=== PATIENT | female | born 1945 | race American Indian/Alaskan Native ===

== ENCOUNTER 2018-04-17 12:23 | Day surgery (SDC) | payer MEDICARE ==
--- NOTE | 2018-04-17 13:43 | Anesthesia Day of Surgery ---
Anesthesia Day of Surgery - Day of Surgery Patient Examined: Yes Patient H&P Reviewed: Yes Patient is NPO: Yes
--- NOTE | 2018-04-17 13:44 | Anesthesia Consultation ---
Anesthesia Consult and Med Hx Date of service: 04/17/18 - Airway Anesthetic Teeth Evaluation: Dentures ROM Head & Neck: Adequate Mental/Hyoid Distance: Adequate Mallampati Class: Class II Intubation Access Assessment: Possibly Difficult - Pre-Operative Health Status ASA Pre-Surgery Classification: ASA2 Proposed Anesthetic Plan: MAC - Pulmonary Hx Smoking: Yes (1 PACK/DAY FOR 50 YEARS) - Cardiovascular System Hx Hypertension: Yes - Central Nervous System Hx Psychiatric Problems: Yes - Gastrointestinal Hx Gastroesophageal Reflux Disease: Yes
[2018-04-17] MEDS ORDERED: DIPRIVAN 10 MG/ML IV ONE (13:46)
[2018-04-17] MEDS ORDERED: NACL 0.9% 1000 ML 1,000 ML IV SCH (14:00)
--- NOTE | 2018-04-17 14:09 | Operative Report ---
Operative Report Operative Report: Date: 04/17/2018 Operative Report: Date of procedure: 04/17/2018 Procedure: Esophagogastroduodenoscopy with multiple mucosal biopsies Attending physician: Theo Leger MD Named Account Executive: Theo Leger MD Indication: Patient is a 72-year-old female who presented with a history of epigastric pain heartburn and indigestion with persistence of symptoms, chest pain and nausea with bloating and intestinal gas. An upper endoscopy is done to assess patient so that treatment may be directed based on the findings. Consent: Informed consent was obtained after advising the patient and family regarding nature of this procedure, its indications, potential benefits as well as possible complications including but not limited to bleeding perforation and adverse reaction to medication, infection as well as other cardiopulmonary complications. An informed written and verbal consent was then obtained after due opportunity was provided for questions and answers. Monitoring: Patient was monitored continuously with pulse oximetry and electrocardiographic recordings as well as blood pressure recordings. Vital signs remained stable throughout this procedure with no untoward events. Preoperative assessment: Patient was assessed immediately prior to this procedure for capacity to tolerate monitored anesthesia care and moderate sedation as well as general anesthesia. Patient's ASA classification is 2, Mallampati class is 2, Hyomental distance is 3. Instrument: OrSensen video endoscope Medications: Propofol given intravenously in divided doses. For details please refer to anesthesia records. Description of procedure: Patient was placed in the left lateral decubitus position after achieving sedation, the endoscope was introduced into the esophagus under direct vision. It was then advanced beyond the esophagus into the stomach and then beyond the stomach into the duodenum and to the second portion of the duodenum. It was subsequently withdrawn with careful inspection of all mucosal surfaces with the following findings. Findings: In the esophagus, the Z line was irregular. There was a Schatzki ring at the gastroesophageal junction There was a 1-2 cm sliding hiatal hernia seen on entry into the stomach. There were erosions and erythema seen in the gastric antrum. Biopsies of the antrum were obtained for histopathology. The duodenum was normal to second portion. Impression: Irregular Z line Schatzki ring Hiatal hernia Gastric antral erosions Gastric antral erythema Plan: Follow pathology report. Continue treatment with proton pump inhibitors and direct additional treatment based on the pathology report.
--- NOTE | 2018-04-17 14:09 | Discharge Summary ---
Short Stay Discharge Plan Activity: advance as tolerated Weight Bearing Status: Weight Bear as Tolerated Diet: regular Follow up with: CONCHITA ALEX MD [Primary Care Provider] - 7 Days
[2018-04-17 14:48] VITALS: BP 116/66
[2018-04-17] MEDS ORDERED: WATER FOR IRRIG STERILE IR ONE (14:56)
== END 2018-04-17 12:24 | disposition home or self-care (01) ==
LOC: GIO 12:23
PROVIDERS: ATTEND Internal Medicine Gastroenterology
DX: K29.50 Unspecified chronic gastritis without bleeding (principal); K44.9 Diaphragmatic hernia without obstruction or gangrene; F17.210 Nicotine dependence, cigarettes, uncomplicated; I10 Essential (primary) hypertension; K21.9 Gastro-esophageal reflux disease without esophagitis; Z90.710 Acquired absence of both cervix and uterus; Z79.899 Other long term (current) drug therapy; Z79.01 Long term (current) use of anticoagulants; Z88.5 Allergy status to narcotic agent; Z98.890 Other specified postprocedural states
CPT/HCPCS: 43239; 88305; 88342; J2704; J7030

== ENCOUNTER 2018-05-09 13:19 | Outpatient (CLI) | payer MEDICARE ==
--- NOTE | 2018-05-09 15:53 | Mammography Report ---
BILATERAL DIGITAL SCREENING MAMMOGRAM with CAD : 05/09/18 13:19:00 CLINICAL: Routine screening. COMPARISON:08/18/14 and 07/15/07 FINDINGS: The breasts are heterogeneously dense, which may obscure small masses.Scattered bilateral benign calcifications. No mass, architectural distortion or suspicious calcifications. IMPRESSION: No mammographic evidence of malignancy. BI-RADS CATEGORY: 2 -- Benign RECOMMENDATION: Routine mammographic screening in one year. COMMENT: Patient follow-up letters are generated by our [employer] application.
--- NOTE | 2018-05-09 15:56 | Mammography Report ---
BONE DEXA:05/09/18 13:19:00 CLINICAL: Postmenopausal. No comparison. TECHNIQUE: Two site bone DEXA performed on an Hologic scanner. FINDINGS: The average BMD of the lumbar spine L1-L4 is 0.793g/cm squared with a T-score of -2.3 and a Z-score of -0.9. However, the L4 BMD is 0.708 with a T score of -3.2 and a Z score of -1.7. The average BMD of the left hip is 0.625g/cm squared with a T-score of -2.6 and a Z-score of -1.5. IMPRESSION: WHO classification: Osteoporosis with high fracture risk based on both lumbar spine and left hip measurements. RECOMMENDATION: Clinical correlation and routine screening. DEFINITIONS: BMD = Bone Mineral Density T-score = BMD related to mean peak bone mass of young adult (mean expressed in Standard Deviation) Z-score = Age matched BMD expressed in SD World Health Organization (WHO) Diagnostic Criteria Normal T-score > -1 SD Osteopenia T-score between -1 and -2.4 SD Osteoporosis T-score -2.5 SD or below NOTE: BMD is not the only risk factor for fracture. One should also consider factors such as the patient's age, risk of falling, previous osteoporotic fracture, family history of osteoporotic fractures, current smoker, and low body weight. Z-scores are not calculated if >80 years of age.
== END 2018-05-09 13:20 | disposition home or self-care (01) ==
LOC: MAMMO 13:19
PROVIDERS: ATTEND Family Medicine
DX: Z12.31 Encounter for screening mammogram for malignant neoplasm of breast (principal); M85.88 Other specified disorders of bone density and structure, other site; I10 Essential (primary) hypertension; K21.9 Gastro-esophageal reflux disease without esophagitis; Z78.0 Asymptomatic menopausal state; Z87.891 Personal history of nicotine dependence; Z90.710 Acquired absence of both cervix and uterus
CPT/HCPCS: 77067; 77080

== ENCOUNTER 2020-06-20 10:49 | Emergency (ER) | payer MEDICARE ==
[2020-06-20 10:58] VITALS: BP 132/67
[2020-06-20] MEDS ORDERED: ACETAMINOPHEN 325 MG TAB PO ONE (11:52)
--- NOTE | 2020-06-20 12:28 | Emergency Department Report ---
Upper Extremity - HPI Chief Complaint: Extremity Injury, Upper Stated Complaint: RT SHOULDER PAIN/FALL Time Seen by Provider: 06/20/20 12:26 Upper Extremity: Right Shoulder Occurred When: Today Mechanism: Fall Severity: moderate Symptoms: Yes Pain with Movement, Yes Limited Range of Movement, No Deformity, No Numbness, No Weakness, No Swelling, No Bruising/Ecchymosis, No Laceration or Abrasion Other History: 74-year-old female with a past medical history of schizophrenia and hypertension was brought to the ER by her son today for evaluation of right shoulder pain after an accidental fall today. Son reports that patient was at [facility] facility to get her Haldol shot. He states that she has a shuffling gait and so while she was walking to the bathroom she lost her balance and fell and struck her right shoulder. He denies any head injury. ED Review of Systems ROS: Stated complaint: RT SHOULDER PAIN/FALL Other details as noted in HPI Comment: All other systems reviewed and negative ENT: denies: ear pain, throat pain Respiratory: denies: cough, shortness of breath, wheezing Cardiovascular: denies: chest pain, palpitations Gastrointestinal: denies: abdominal pain, nausea, vomiting, diarrhea, constipation, hematemesis, melena, hematochezia Musculoskeletal: joint swelling, arthralgia Skin: denies: rash, lesions Neurological: denies: headache, weakness, paresthesias Psychiatric: denies: anxiety, depression Hematological/Lymphatic: denies: easy bleeding, easy bruising ED Past Medical Hx - Past Medical History Hx Hypertension: Yes Hx GERD: Yes - Social History Smoking Status: Current Every Day Smoker Substance Use Type: None - Medications Home Medications: Home Medications Medication Instructions Recorded Confirmed Last Taken Type Aspirin 1 tab PO DAILY 04/17/18 04/17/18 04/16/18 History Cogentin 1 tab PO HS 04/17/18 04/17/18 04/16/18 History Famotidine [Pepcid] 1 tab PO DAILY 04/17/18 04/17/18 04/16/18 History Haloperidol Decanoate [Haldol 150 mg IM QMONTH 04/17/18 04/17/1818 H istory Decanoate] Omeprazole 1 tab PO DAILY 04/17/18 04/17/18 04/16/18 History Sertraline [Zoloft] 1 tab PO DAILY 04/17/18 04/17/18 04/16/18 History amLODIPine 1 tab PO DAILY 04/17/18 04/17/18 04/16/18 History HYDROcodone/APAP 5-325 [[place] 1 each PO Q4HR PRN #12 tablet 06/20/20 Unknown Rx 5/325] Naproxen [EC-Naprosyn] 500 mg PO Q12HR PRN #20 tablet. 06/20/20 Unknown Rx Upper Extremity Exam - Exam General: Vital signs noted. No distress. Alert and acting appropriately. Head and Torso: No HEENT Abnormality, No Neck Tenderness, No Chest/Lungs Abnormality, No Abdominal Tenderness, No Back Tenderness Shoulder Exam: Yes Shoulder Tenderness, Yes Clavicle Tenderness, No Normal Range of Motion in Shoulder (Reduced due to pain - right shoulder), No Shoulder Deformity, No AC Joint Tenderness Arm Exam: Yes Arm/Humerus Tenderness (Proximal right), No Arm Deformity Elbow: Yes Normal Range of Motion in Elbow, No Elbow Tenderness, No Elbow Deformity Forearm: Yes Forearm Tenderness, No Forearm Deformity, No Pain with Pronation, No Pain with Supination Wrist: Yes Normal ROM in Wrist, No Wrist Tenderness, No Wrist Deformity, No Snuffbox Tenderness, No Pain with Axial Thumb Compression Hand: Yes Normal ROM in Digit(s), No Hand Tenderness, No Hand Deformity, No Digit Tenderness, No Digit(s) Deformity, No Tendon Dysfunction CMS Exam: Yes Normal Distal Pulses, Yes Normal Capillary Refill, Yes Normal Distal Sensation, No Broken Skin ED Course Vital Signs 06/20/20 06/20/20 10:53 12:02 Temperature 98.2 F Pulse Rate 66 Respiratory 18 18 Rate Blood Pressure 132/67 O2 Sat by Pulse 100 Oximetry ED Medical Decision Making - Radiology Data Radiology results: report reviewed Patient: KATELYNN BALTAZAR MR#: [id number] : 1945 Acct:[id number] Age/Sex: 74 / F ADM Date: 06/20/20 Loc: ED Attending Dr: Ordering Physician: SESAR CORONEL Date of Service: 06/20/20 Procedure(s): XR shoulder 2+V RT Accession Number(s): [id number] cc: SESAR CORONEL Fluoro Time In Minutes: XR forearm 1V RT, XR elbow 2V RT, XR humerus 2+V RT, XR shoulder 2+V RT INDICATION / CLINICAL INFORMATION: Fall right arm pain. COMPARISON: None FINDINGS: Right shoulder: Acute mildly impacted fracture of the right proximal humerus surgical neck. There is likely involvement of the greater tuberosity, though fracture otherwise not well evaluated, as the right shoulder is held in internal rotation throughout the examination. Scapular Y view is slightly suboptimal, though demonstrates no evidence of glenohumeral joint malalignment. No additional fracture. Right humerus: No acute fracture or soft tissue abnormality. Right elbow: No acute fracture, malalignment, or joint effusion. No soft tissue abnormality. Right forearm: No acute fracture or soft tissue abnormality. IMPRESSION: Acute impacted right proximal humerus fracture, as above. No other acute abnormality of the right humerus, elbow, or forearm. Signer Name: Berto Daniels MD Signed: 06/20/2020 1:17 PM Workstation Name: [id number] Transcribed By: JS Dictated By: BERTO DANIELS MD Electronically Authenticated By: BERTO DANIELS MD Signed Date/Time: 06/20/201316 DD/ 10 TD/TT: - Medical Decision Making Patient with an acute impacted right proximal humerus fracture. Right upper extremity neurologically intact without any signs of compartment syndrome. Discussed x-ray results with patient's son. Patient replaced shoulder immobilizer. Give him a copy of the x-ray report. Informed him that patient needs to follow-up with teaching specialists, and one will be provided to him on the discharge instructions. Son expressed understanding of instructions and agree with plan. Patient was stable at time of discharge Critical care attestation.: If time is entered above; I have spent that time in minutes in the direct care of this critically ill patient, excluding procedure time. ED Disposition Clinical Impression: Proximal humeral fracture Disposition: DC-01 TO HOME OR SELFCARE Is pt being admited?: No Does the pt Need Aspirin: No Condition: Stable Instructions: Humerus Fracture Treated With Immobilization, [id number] Additional Instructions: Use the shoulder immobilizer as discussed. Take the pain pills as prescribed. It is important that you follow-up with teaching specialists, try to make an appointment for this week or early next week. Return to the ER if symptoms changes or worsens in any way. Prescriptions: Naproxen [EC-Naprosyn] 500 mg PO Q12HR PRN #20 tablet.dr PRN Reason: PAIN HYDROcodone/APAP 5-325 [[place] 5/325] 1 each PO Q4HR PRN #12 tablet PRN Reason: Pain Referrals: ROSA MARIA MILIAN MD [Staff Physician] - 3-5 Days Time of Disposition: 13:51
--- NOTE | 2020-06-20 13:22 | XRay Report ---
XR forearm 1V RT, XR elbow 2V RT, XR humerus 2+V RT, XR shoulder 2+V RT INDICATION / CLINICAL INFORMATION: Fall right arm pain. COMPARISON: None FINDINGS: Right shoulder: Acute mildly impacted fracture of the right proximal humerus surgical neck. There is likely involvement of the greater tuberosity, though fracture otherwise not well evaluated, as [facility] is held in internal rotation throughout the examination. Scapular Y view is slightly sub optimal, though demonstrates no evidence of glenohumeral joint malalignment. No additional fracture. Right humerus: No acute fracture or soft tissue abnormality. Right elbow: No acute fracture, malalignment, or joint effusion. No soft tissue abnormality. Right forearm: No acute fracture or soft tissue abnormality. IMPRESSION: Acute impacted right proximal humerus fracture, as above. No other acute abnormality of the right humerus, elbow, or forearm. Signer Name: Lizandro Daniels MD Signed: 06/20/2020 1:17 PM Workstation Name: [id number]
--- NOTE | 2020-06-20 13:22 | XRay Report ---
XR forearm 1V RT, XR elbow 2V RT, XR humerus 2+V RT, XR shoulder 2+V RT INDICATION / CLINICAL INFORMATION: Fall right arm pain. COMPARISON: None FINDINGS: Right shoulder: Acute mildly impacted fracture of the right proximal humerus surgical neck. There is likely involvement of the greater tuberosity, though fracture otherwise not well evaluated, as the [facility] is held in internal rotation throughout the examination. Scapular Y view is slightly sub optimal, though demonstrates no evidence of glenohumeral joint malalignment. No additional fracture. Right humerus: No acute fracture or soft tissue abnormality. Right elbow: No acute fracture, malalignment, or joint effusion. No soft tissue abnormality. Right forearm: No acute fracture or soft tissue abnormality. IMPRESSION: Acute impacted right proximal humerus fracture, as above. No other acute abnormality of the right humerus, elbow, or forearm. Signer Name: Lizandro Daniels MD Signed: 06/20/2020 1:17 PM Workstation Name: [id number]
--- NOTE | 2020-06-20 13:22 | XRay Report ---
XR forearm 1V RT, XR elbow 2V RT, XR humerus 2+V RT, XR shoulder 2+V RT INDICATION / CLINICAL INFORMATION: Fall right arm pain. COMPARISON: None FINDINGS: Right shoulder: Acute mildly impacted fracture of the right proximal humerus surgical neck. There is likely involvement of the greater tuberosity, though fracture otherwise not well evaluated, as the [facility] is held in internal rotation throughout the examination. Scapular Y view is slightly sub optimal, though demonstrates no evidence of glenohumeral joint malalignment. No additional fracture. Right humerus: No acute fracture or soft tissue abnormality. Right elbow: No acute fracture, malalignment, or joint effusion. No soft tissue abnormality. Right forearm: No acute fracture or soft tissue abnormality. IMPRESSION: Acute impacted right proximal humerus fracture, as above. No other acute abnormality of the right humerus, elbow, or forearm. Signer Name: Lizandro Daniels MD Signed: 06/20/2020 1:17 PM Workstation Name: [id number]
--- NOTE | 2020-06-20 13:22 | XRay Report ---
XR forearm 1V RT, XR elbow 2V RT, XR humerus 2+V RT, XR shoulder 2+V RT INDICATION / CLINICAL INFORMATION: Fall right arm pain. COMPARISON: None FINDINGS: Right shoulder: Acute mildly impacted fracture of the right proximal humerus surgical neck. There is likely involvement of the greater tuberosity, though fracture otherwise not well evaluated, as the [facility] is held in internal rotation throughout the examination. Scapular Y view is slightly sub optimal, though demonstrates no evidence of glenohumeral joint malalignment. No additional fracture. Right humerus: No acute fracture or soft tissue abnormality. Right elbow: No acute fracture, malalignment, or joint effusion. No soft tissue abnormality. Right forearm: No acute fracture or soft tissue abnormality. IMPRESSION: Acute impacted right proximal humerus fracture, as above. No other acute abnormality of the right humerus, elbow, or forearm. Signer Name: Lizandro Daniels MD Signed: 06/20/2020 1:17 PM Workstation Name: [id number]
== END 2020-06-20 14:23 | disposition home or self-care (01) ==
LOC: ED 10:49
DX: S42.201A Unspecified fracture of upper end of right humerus, initial encounter for closed fracture (principal); I10 Essential (primary) hypertension; K21.9 Gastro-esophageal reflux disease without esophagitis; F17.200 Nicotine dependence, unspecified, uncomplicated; Z79.899 Other long term (current) drug therapy; W18.30XA Fall on same level, unspecified, initial encounter; Y93.89 Activity, other specified; Y92.89 Other specified places as the place of occurrence of the external cause; Y99.8 Other external cause status
CPT/HCPCS: 99283

== ENCOUNTER 2021-05-30 10:15 | Day surgery (SDC) | payer MEDICARE ==
[~2021-05-30 10:15] MED LIST: SODIUM CHLORIDE 0.9% 1000 ML 1,000 ML IV SCH
--- NOTE | 2021-05-30 11:35 | Anesthesia Consultation ---
Anesthesia Consult and Med Hx - Airway Anesthetic Teeth Evaluation: Dentures, Edentulous ROM Head & Neck: Adequate Mental/Hyoid Distance: Adequate Mallampati Class: Class III Intubation Access Assessment: Possibly Difficult - Pulmonary Exam CTA: Yes - Cardiac Exam Cardiac Exam: RRR - Pre-Operative Health Status ASA Pre-Surgery Classification: ASA3 Proposed Anesthetic Plan: MAC - Pulmonary Hx Smoking: Yes (1 PACK/DAY FOR 50 YEARS) COPD: Yes Hx Sleep Apnea: Yes (no CPAP) - Cardiovascular System Hx Hypertension: Yes (CHF - EF 55% on most recent echo) Hx Coronary Artery Disease: Yes Hx Heart Murmur: Yes - Central Nervous System CVA: Yes Hx Psychiatric Problems: Yes (schizophrenia) - Gastrointestinal Hx Gastroesophageal Reflux Disease: Yes - Endocrine Hx Renal Disease: Yes (CKD) - Other Systems Hx Alcohol Use: No Hx Substance Use: No Hx Cancer: Yes (cervical) Hx Obesity: No - Additional Comments Anesthesia Medical History Comments: no hx of anesthetic complications
--- NOTE | 2021-05-30 11:35 | Anesthesia Day of Surgery ---
Anesthesia Day of Surgery - Day of Surgery Patient Examined: Yes Patient H&P Reviewed: Yes Patient is NPO: Yes Cardiac Clearance: Yes (on chart)
--- NOTE | 2021-05-30 12:03 | Short Stay Summary ---
Short Stay Documentation Date of service: 05/30/21 Narrative H&P: The patient presents for EGD to evaluate abdominal pain and colonoscopy to evaluate hematochezia. - History Past Medical History: GERD, hypertension, hyperlipidemia, other (schizophrenia) Past Surgical History: No surgical history Social history: no significant social history, lives with family - Allergies and Medications Current Medications: Allergies morphine Allergy (Verified 06/20/20 10:53) Rash NAUSEA Home Medications Medication Instructions Recorded Confirmed Last Taken Type Aspirin 1 tab PO DAILY 04/17/18 04/17/18 04/16/18 History Cogentin 1 tab PO HS 04/17/18 04/17/18 04/16/18 History Famotidine [Pepcid] 1 tab PO DAILY 04/17/18 04/17/18 04/16/18 History Haloperidol Decanoate [Haldol 150 mg IM QMONTH 04/17/18 04/17/18 03/21/18 History Decanoate] Omeprazole 1 tab PO DAILY 04/17/18 04/17/18 04/16/18 History Sertraline [Zoloft] 1 tab PO DAILY 04/17/18 04/17/18 04/16/18 History amLODIPine 1 tab PO DAILY 04/17/18 04/17/18 04/16/18 History HYDROcodone/APAP 5-325 [[place] 1 each PO Q4HR PRN #12 tablet 06/20/20 Unknown Rx 5/325] Naproxen [EC-Naprosyn] 500 mg PO Q12HR PRN #20 tablet. 06/20/20 Unknown Rx Active Medications Sodium Chloride (Nacl 0.9% 1000 Ml) 1,000 mls @ 50 mls/hr IV DIRECT МАРИНА - Physical exam General appearance: no acute distress, well-nourished Integumentary: no rash, no growths, no abnormal pigmentation HEENT: Atraumatic, PERRLA, EOMI Lungs: Clear to auscultation Breasts: deferred Heart: Regular rate, Normal S1, Normal S2, No murmurs Gastrointestinal: normoactive bowel sounds, no tenderness, no distended, no masses, no guarding, no organomegaly, no obese Female Genitourinary: deferred Rectal Exam: normal rectal tone, stool brown, no mass Extremities: no ischemia, pulses intact, pulses symmetrical, No edema, normal temperature, normal color, Full ROM Neurological: Normal gait, Normal speech, Strength at 5/5 X4 ext, Normal tone, Sensation intact, Cranial nerves 3-12 NL - Brief post op/procedure progress note Date of procedure: 05/30/21 Findings: see dictations Estimated blood loss: none Pathology: list (antral biopsies for h pylori) Specimen disposition: to lab Condition: stable - Disposition Condition at discharge: Good Disposition: 01 HOME / SELF CARE / HOMELESS - Discharge Diagnoses (1) Epigastric pain Status: Acute (2) GERD (gastroesophageal reflux disease) Status: Acute (3) Hematochezia Status: Acute Short Stay Discharge Plan Activity: no restrictions Weight Bearing Status: Weight Bear as Tolerated Diet: regular Follow up with: CONCHITA ALEX MD [Primary Care Provider] - 7 Days
--- NOTE | 2021-05-30 12:05 | Operative Report ---
Operative Report Operative Report: Date of procedure: 05/30/2021 Procedure: Esophagogastroduodenoscopy with antral biopsies for H. pylori Preprocedure diagnosis: Epigastric pain and chronic GERD. Post procedure diagnosis: Mild diffuse antral gastritis. Hiatus hernia. Endoscopist: Dr. Sanchez Anesthesia: Monitored anesthesia care per anesthesia department Medications: Propofol per anesthesia Estimated blood loss: 0 After careful discussion of the nature and purpose of the procedure as well as details the technique risks benefits and alternatives consent was obtained. The patient was placed in the left lateral decubitus position and medicated per anesthesia. The tip of the [employer] EQ 570 video scope was passed per orum under direct vision into the esophagus and advanced into the stomach and descending duodenum. The descending duodenum the duodenal bulb and pylorus were symmetrical and normal. The scope was withdrawn into the stomach and the stomach then gently insufflated with air. The antrum revealed diffuse erythema. There were no erosions or ulcers. Biopsies were taken for H. pylori. The stomach was further insufflated and the scope was then retroflexed and partially withdrawn. The cardia, fundus, and body of the stomach were within normal limits and easily distensible.The scope was then withdrawn in the forward position. The esophagogastric junction was at 37 cm. A 2 cm hiatus hernia was present. The esophageal body was normal throughout. The procedure was was well tolerated and the patient was observed in recovery. Impressions: Antral gastritis. Hiatus hernia. Plan: Continue acid suppression. Await pathology results. Treat H. pylori if present. Electronically signed: Dom Sanchez MD
--- NOTE | 2021-05-30 12:08 | Operative Report ---
Operative Report Operative Report: Date of procedure: 05/30/2021 Preprocedure diagnosis: Recent hematochezia. Post procedure diagnoses: Poor prep, limited study with intended colonoscopy to the cecum. Procedure: Flexible sigmoidoscopy to 35 cm Endoscopist: Dom Sanchez M.D. Estimated blood loss: 0 Medications: Propofol per anesthesia. After careful discussion of the nature and purpose of the procedure, risks, benefits, and alternatives consent was obtained. The patient was placed in the left lateral decubitus position and medicated per anesthesia-see separate records for details. A rectal exam was performed. Sphincter tone was normal and no masses were palpable. The tip of the [employer] EQ 570 video scope was passed transanally and advanced under continuous direct vision to 35 cm. Colon preparation was very poor with thick liquid stool and some solid stool present precluding a safe and complete study. No pathology was seen occluding no mass lesions although the study was insensitive to detect small polyps. The procedure was well-tolerated overall. Conclusions: Poor prep. No gross pathology to 35 cm. Colonoscopy could not be completed due to lack of adequate preparation. Plan: Consideration of repeat study with adequate preparation in the near future. The findings and recommendations were discussed with the patient's son. Electronically signing: Dom Sanchez M.D.
--- NOTE | 2021-05-30 15:21 | Post Anesthesia Evaluation ---
- Post Anesthesia Evaluation Patient Participated: Yes Airway Patent: Yes Stable Respiratory Function: Yes Nausea/Vomiting: No Temp > 96.8F: Yes Pain Manageable: Yes Adequeate Hydration: Yes Anesthesia Complications: No
[2021-05-30 16:27] VITALS: BP 123/61
== END 2021-05-30 12:35 | disposition home or self-care (01) ==
LOC: GIO 10:15
PROVIDERS: ATTEND Internal Medicine Gastroenterology
DX: K92.1 Melena (principal); K21.9 Gastro-esophageal reflux disease without esophagitis; R10.13 Epigastric pain; K44.9 Diaphragmatic hernia without obstruction or gangrene; I13.0 Hypertensive heart and chronic kidney disease with heart failure and stage 1 through stage 4 chronic kidney disease, or unspecified chronic kidney disease; I50.9 Heart failure, unspecified; N18.9 Chronic kidney disease, unspecified; J44.9 Chronic obstructive pulmonary disease, unspecified; G47.30 Sleep apnea, unspecified; Z88.5 Allergy status to narcotic agent; Z90.710 Acquired absence of both cervix and uterus; Z79.899 Other long term (current) drug therapy; Z79.82 Long term (current) use of aspirin; Z85.42 Personal history of malignant neoplasm of other parts of uterus; Z85.41 Personal history of malignant neoplasm of cervix uteri; Z86.73 Personal history of transient ischemic attack (TIA), and cerebral infarction without residual deficits
CPT/HCPCS: 88305; 88342

== ENCOUNTER 2021-06-13 22:20 | Inpatient (IN) | payer MEDICARE ==
--- NOTE | 2021-06-14 05:05 | XRay Report ---
BILATERAL HIPS 2 VIEWS EACH INDICATION / CLINICAL INFORMATION: fall. COMPARISON: None available. FINDINGS: BONES / JOINT(S): Subcapital fracture involving the right hip with superior displacement of distal fr agment. Moderate underlying osteopenia. SOFT TISSUES: No significant abnormality. ADDITIONAL FINDINGS: None. Signer Name: Lv Poole MD Signed: 06/14/2021 5:01 AM Workstation Name: [email or web address]
--- NOTE | 2021-06-14 05:07 | XRay Report ---
RIGHT ANKLE ONE VIEW INDICATION / CLINICAL INFORMATION: fall. COMPARISON: None available. FINDINGS: BONES / JOINT(S): No acute fracture or subluxation. No significant arthritis. SOFT TISSUES: No significant abnormality. ADDITIONAL FINDINGS: None. IMPRESSION: Limited evaluation with no gross abnormality. Signer Name: Lv Poole MD Signed: 06/14/2021 5:02 AM Workstation Name: [email or web address]
--- NOTE | 2021-06-14 05:09 | XRay Report ---
RIGHT KNEE 2 VIEWS INDICATION / CLINICAL INFORMATION: fall. COMPARISON: None available. FINDINGS: BONES / JOINT(S): No acute fracture or subluxation. Evaluation limited by positioning. Mild/moderate narrowing medial compartment. Underlying osteopenia. SOFT TISSUES: No significant abnormality. ADDITIONAL FINDINGS: None. Signer Name: Lv Poole MD Signed: 06/14/2021 5:04 AM Workstation Name: [email or web address]
[2021-06-14] MEDS ORDERED: ONDANSETRON 4 MG/2 ML INJ ONE (06:49)
[2021-06-14] MEDS ORDERED: MORPHINE 4 MG/1 ML INJ ONE (06:49)
[2021-06-14] MEDS ORDERED: ONDANSETRON 4 MG/2 ML INJ IV ONE (06:50)
[2021-06-14] MEDS: fentaNYL 100 MCG/2 ML INJ IV ONE ×2 (06:54→07:42)
[2021-06-14] MEDS: SODIUM CHLORIDE 0.9% 1000 ML 1,000 ML IV ONE ×2 (06:57→07:41)
[2021-06-14 07:35] LABS: Basophils # (Auto) 0.1 K/mm3 (0.0-0.1); Basophils % (Auto) 1.4 % (0.0-1.8); Eosinophils % (Auto) 0.5 % (0.0-4.3); Hemoglobin 12.3 gm/dl (10.1-14.3); Lymphocytes # (Auto) 0.8 K/mm3 (1.2-5.4); Lymphocytes % (Auto) 11.1 % (13.4-35.0); Mean Corpuscular HGB Conc 35 % (30-34); Mean Corpuscular Volume 95 fl (79-97); Monocytes # (Auto) 0.4 K/mm3 (0.0-0.8); Monocytes % (Auto) 6.1 % (0.0-7.3); Platelet Count 145 K/mm3 (140-440); Red Blood Count 3.67 M/mm3 (3.65-5.03); Red Cell Distribution Width 15.2 % (13.2-15.2)
--- NOTE | 2021-06-14 07:40 | XRay Report ---
CHEST 1 VIEW 06/14/2021 7:00 AM INDICATION / CLINICAL INFORMATION: Fall. COMPARISON: None available. FINDINGS: SUPPORT DEVICES: None. HEART / MEDIASTINUM: Mild cardiomegaly. The aorta is tortuous and ectatic. LUNGS / PLEURA: Mild opacity at the lung bases left greater than right. No pneumothorax. ADDITIONAL FINDINGS: Lateral right rib fractures appear old. IMPRESSION: Basilar infiltrate left greater than right. Aspiration versus atelectasis. Signer Name: Lv Poole MD Signed: 06/14/2021 7:35 AM Workstation Name: [email or web address]
[2021-06-14 07:46] LABS: INR 0.97 (0.87-1.13)
[2021-06-14 07:50] LABS: Albumin 4.1 g/dL (3.9-5); Calcium 9.3 mg/dL (8.4-10.2)
--- NOTE | 2021-06-14 08:19 | Emergency Department Report ---
ED Fall HPI - General Chief Complaint: Fall Time Seen by Provider: 06/14/21 06:49 Source: EMS Mode of arrival: Wheelchair - History of Present Illness Initial Comments: Pt came in c/o R leg and hip pain due to a fall last night around 2129. Pt states that she is unable to move her R leg at this time. 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 denies: headache, neck pain - Related Data Home Medications Medication Instructions Recorded Confirmed Last Taken Aspirin 1 tab PO DAILY 04/17/18 04/17/18 04/16/18 Cogentin 1 tab PO HS 04/17/18 04/17/18 04/16/18 Famotidine [Pepcid] 1 tab PO DAILY 04/17/18 04/17/18 04/16/18 Haloperidol Decanoate [Haldol 150 mg IM QMONTH 04/17/18 04/17/18 03/21/18 Decanoate] Omeprazole 1 tab PO DAILY 04/17/18 04/17/18 04/16/18 Sertraline [Zoloft] 1 tab PO DAILY 04/17/18 04/17/18 04/16/18 amLODIPine 1 tab PO DAILY 04/17/18 04/17/18 04/16/18 Previous Rx's Medication Instructions Recorded Last Taken Type HYDROcodone/APAP 5-325 [[place] 1 each PO Q4HR PRN #12 tablet 06/20/20 Unknown Rx 5-325 mg TAB] Naproxen [EC-Naprosyn] 500 mg PO Q12HR PRN #20 tablet. 06/20/20 Unknown Rx Allergies Allergy/AdvReac Type Severity Reaction Status Date / Time morphine Allergy Rash Verified 06/20/20 10:53 ED Review of Systems ROS: Stated complaint: Other details as noted in HPI Constitutional: denies: chills, fever Eyes: denies: eye pain, eye discharge, vision change ENT: denies: ear pain, throat pain Respiratory: denies: cough, shortness of breath, wheezing Cardiovascular: denies: chest pain, palpitations Endocrine: no symptoms reported Gastrointestinal: denies: abdominal pain, nausea, diarrhea Genitourinary: denies: urgency, dysuria, discharge Musculoskeletal: denies: back pain, joint swelling, arthralgia Skin: denies: rash, lesions Neurological: denies: headache, weakness, paresthesias Psychiatric: denies: anxiety, depression Hematological/Lymphatic: denies: easy bleeding, easy bruising ED Past Medical Hx - Past Medical History Hx Hypertension: Yes (CHF - EF 55% on most recent echo) Hx Congestive Heart Failure: Yes Hx GERD: Yes Hx Renal Disease: Yes (CKD) Hx COPD: Yes - Social History Smoking Status: Unknown if ever smoked - Medications Home Medications: Home Medications Medication Instructions Recorded Confirmed Last Taken Type Aspirin 1 tab PO DAILY 04/17/18 04/17/18 04/16/18 History Cogentin 1 tab PO HS 04/17/18 04/17/18 04/16/18 History Famotidine [Pepcid] 1 tab PO DAILY 04/17/18 04/17/18 04/16/18 History Haloperidol Decanoate [Haldol 150 mg IM QMONTH 04/17/18 04/17/18 03/21/18 History Decanoate] Omeprazole 1 tab PO DAILY 04/17/18 04/17/18 04/16/18 History Sertraline [Zoloft] 1 tab PO DAILY 04/17/18 04/17/18 04/16/18 History amLODIPine 1 tab PO DAILY 04/17/18 04/17/18 04/16/18 History HYDROcodone/APAP 5-325 [[place] 1 each PO Q4HR PRN #12 tablet 06/20/20 Unknown Rx 5-325 mg TAB] Naproxen [EC-Naprosyn] 500 mg PO Q12HR PRN #20 tablet. 06/20/20 Unknown Rx ED Physical Exam - General Limitations: No Limitations General appearance: alert, in distress - Head Head exam: Present: atraumatic, normocephalic - Eye Eye exam: Present: normal appearance - ENT ENT exam: Present: mucous membranes moist - Neck Neck exam: Present: normal inspection - Respiratory Respiratory exam: Present: normal lung sounds bilaterally. Absent: respiratory distress - Cardiovascular Cardiovascular Exam: Present: regular rate, normal rhythm. Absent: systolic murmur, diastolic murmur, rubs, gallop - GI/Abdominal GI/Abdominal exam: Present: soft, normal bowel sounds - Extremities Exam Extremities exam: Present: normal inspection - Expanded Lower Extremity Exam Right Lower Leg exam: Present: tenderness, deformity - Back Exam Back exam: Present: normal inspection - Neurological Exam Neurological exam: Present: alert, oriented X3 - Psychiatric Psychiatric exam: Present: normal affect, normal mood - Skin Skin exam: Present: warm, dry, intact, normal color. Absent: rash ED Course Vital Signs 06/14/21 06/14/21 06/14/21 04:27 05:06 08:16 Temperature 98 F Pulse Rate 78 80 Respiratory 16 18 Rate Blood Pressure 104/51 160/60 [Left] O2 Sat by Pulse 98 100 95 Oximetry ED Medical Decision Making - Lab Data Result diagrams: 06/14/21 07:10 06/14/21 07:10 - Radiology Data Radiology results: report reviewed, image reviewed - Medical Decision Making right hip fracture, spoke with dr travis, pain control, preop work up admitted to medicine Critical care attestation.: If time is entered above; I have spent that time in minutes in the direct care of this critically ill patient, excluding procedure time. ED Disposition Clinical Impression: Hip fracture, right Disposition: ADMITTED INPATIENT Is pt being admited?: Yes Does the pt Need Aspirin: No Condition: Stable Referrals: CONCHITA ALEX MD [Primary Care Provider] - 3-5 Days
--- NOTE | 2021-06-14 08:55 | History and Physical Report ---
History of Present Illness Date of examination: 06/14/21 Date of admission: 06/14/21 Chief complaint: HIP FRACTURE History of present illness: Patient is a 75-year-old female with past medical history of schizophrenia, hypertension, tobacco use disorder who presented to the hospital today following a fall last night of which she could not move her right leg following the fall. She was in the ER noted to have his Septal fracture of the right hip. On physical exam was noted that the right lower extremity was shortened and Externally rotated. And has also received a dose of fentanyl with an appropriate consult and planning for surgery tomorrow we are asked to admit and manage. Patient seen and examined very poor historian he she lives with her son who is also her caregiver and is at the bedside. Reports to me that the patient on standing up last night from a sitting position staggered backwards and fell. He reports that this has also happened in the last year and a physician's office where the patient also sustained a fall after standing from a sitting position with no loss of consciousness reported at either time. At the previous event she had a fracture of her right requiring surgery. Patient was recently in the hospital here for an outpatient colonoscopy for hematochezia with no complications noted with anesthesia. She reports her pain to be a 3/10 in intensity at this time this is shortly after receiving fentanyl IV. Past History Past Medical History: hypertension, other (Schizophrenia) Past Surgical History: Other (Right upper extremity surgery) Social history: smoking, full code Family history: no significant family history Medications and Allergies Allergies Allergy/AdvReac Type Severity Reaction Status Date / Time morphine Allergy Rash Verified 06/20/20 10:53 Home Medications Medication Instructions Recorded Confirmed Last Taken Type Aspirin 1 tab PO DAILY 04/17/18 04/17/18 04/16/18 History Cogentin 1 tab PO HS 04/17/18 04/17/18 04/16/18 History Famotidine [Pepcid] 1 tab PO DAILY 04/17/18 04/17/18 04/16/18 History Haloperidol Decanoate [Haldol 150 mg IM QMONTH 04/17/18 04/17/18 03/21/18 History Decanoate] Omeprazole 1 tab PO DAILY 04/17/18 04/17/18 04/16/18 History Sertraline [Zoloft] 1 tab PO DAILY 01/04/17/18 04/16/18 History amLODIPine 1 tab PO DAILY 04/17/18 04/17/18 04/16/18 History HYDROcodone/APAP 5-325 [[place] 1 each PO Q4HR PRN #12 tablet 06/20/20 Unknown Rx 5-325 mg TAB] Naproxen [EC-Naprosyn] 500 mg PO Q12HR PRN #20 tablet. 06/20/20 Unknown Rx Active Meds: Active Medications Acetaminophen (Acetaminophen 325 Mg Tab) 650 mg PO Q4H PRN PRN Reason: Pain MILD(1-3)/Fever >100.5/SANTOS Albuterol (Albuterol 2.5 Mg/3 Ml Nebu) 2.5 mg IH Q3HRT PRN PRN Reason: Shortness Of Breath Arformoterol Tartrate (Arformoterol 15 Mcg/2 Ml Nebu) 15 mcg IH Q12HRT [facility] Budesonide (Budesonide 0.5 Mg/2 Ml Nebu) 0.5 mg IH Q12HRT [facility] Docusate Sodium (Docusate Sodium 100 Mg Cap) 100 mg PO BID [facility] Heparin Sodium (Porcine) (Heparin 5,000 Unit/1 Ml Vial) 5,000 unit SUB-Q Q8HR [facility] Dextrose/Sodium Chloride (D5/0.45ns) 1,000 mls @ 75 mls/hr IV DIRECT [facility] Sodium Chloride (Nacl 0.9% 1000 Ml) 1,000 mls @ 125 mls/hr IV DIRECT [facility] Stop: 06/14/21 22:00 Levofloxacin (Levofloxacin 500 Mg Tab) 500 mg PO Q24HR [facility]; Protocol Metoclopramide HCl (Metoclopramide 10 Mg/2 Ml Inj) 10 mg IV Q6H PRN PRN Reason: Nausea And Vomiting Naloxone HCl (Naloxone 0.4 Mg/1 Ml Inj) 0.1 mg IV Q2MIN PRN PRN Reason: Res Rate </= 8 or 02 SAT < 92% Ondansetron HCl (Ondansetron 4 Mg/2 Ml Inj) 4 mg IV Q4H PRN PRN Reason: Nausea And Vomiting Oxycodone/Acetaminophen (Oxycodone /Acetaminophen 5-325mg Tab) 1 tab PO Q6H PRN PRN Reason: Pain, Moderate (4-6) Potassium Chloride (Potassium Chloride Er 20 Meq Tab) 40 meq PO ONCE ONE Stop: 06/14/21 08:46 Senna (Sennosides 8.6 Mg Tab) 8.6 mg PO Q12HR [facility] Sodium Chloride (Sodium Chloride 0.9% 10 Ml Flush Syringe) 10 ml IV BID [facility] Sodium Chloride (Sodium Chloride 0.9% 10 Ml Flush Syringe) 10 ml IV PRN PRN PRN Reason: LINE FLUSH Review of Systems ROS unobtainable: due to mental status Cardiovascular: no chest pain, no orthopnea, no palpitations, no rapid/irregular heart beat, no edema, no syncope, no lightheadedness, no shortness of breath Respiratory: no cough, no cough with sputum, no shortness of breath, no dyspnea on exertion Gastrointestinal: no abdominal pain, no nausea, no vomiting, no diarrhea, no change in bowel habits, no hematemesis, no coffee ground emesis, no hematochezia Musculoskeletal: limitation of motion, frequent falls, fractures Integumentary: no pruritis, no redness, no sores, no wounds, no jaundice Exam - Physical Exam Narrative exam: VITAL SIGNS: Reviewed. GENERAL: The patient appears normally developed, Vital signs as documented. HEAD: No signs of head trauma. EYES: Pupils are equal. Extraocular motions intact. EARS: Hearing grossly intact. MOUTH: Oropharynx is normal. NECK: No adenopathy, no JVD. CHEST: Chest with clear breath sounds bilaterally. No wheezes, rales, or rhonchi. CARDIAC: Regular rate and rhythm. S1 and S2, without murmurs, gallops, or rubs. VASCULAR: No Edema. Peripheral pulses normal and equal in all extremities. ABDOMEN: Soft, non tender and non distended. No rebound or guarding, and no masses palpated. Bowel Sounds normal. MUSCULOSKELETAL: Right lower extremity externally rotated and shortened. good range of motion of all major joints. Extremities without clubbing, cyanosis or edema. NEUROLOGIC EXAM: Alert and oriented x 3 although poor historian No focal sensory or strength deficits. Speech normal. Follows commands. PSYCHIATRIC: Mood normal. SKIN: detail exam as documented in skin assessment - Constitutional Vitals: Temp Pulse Resp BP Pulse Ox 98 F 80 18 160/60 95 06/14/21 04:27 06/14/21 08:16 06/14/21 08:16 06/14/21 08:16 06/14/21 08:16 Results - Labs CBC & Chem 7: 06/14/21 07:10 06/14/21 07:10 Labs: Laboratory Last Values WBC 7.1 K/mm3 (4.5-11.0) 06/14/21 07:10 RBC 3.67 M/mm3 (3.65-5.03) 06/14/21 07:10 Hgb 12.3 gm/dl (10.1-14.3) 06/14/21 07:10 Hct 35.0 % (30.3-42.9) 06/14/21 07:10 MCV 95 fl (79-97) 06/14/21 07:10 MCH 34 pg (28-32) H 06/14/21 07:10 MCHC 35 % (30-34) H 06/14/21 07:10 RDW 15.2 % (13.2-15.2) 06/14/21 07:10 Plt Count 145 K/mm3 (140-440) 06/14/21 07:10 Lymph % (Auto) 11.1 % (13.4-35.0) L 06/14/21 07:10 [place] % (Auto) 6.1 % (0.0-7.3) 06/14/21 07:10 Eos % (Auto) 0.5 % (0.0-4.3) 06/14/21 07:10 Baso % (Auto) 1.4 % (0.0-1.8) 06/14/21 07:10 Lymph # (Auto) 0.8 K/mm3 (1.2-5.4) L 06/14/21 07:10 [place] # (Auto) 0.4 K/mm3 (0.0-0.8) 06/14/21 07:10 Eos # (Auto) 0.0 K/mm3 (0.0-0.4) 06/14/21 07:10 Baso # (Auto) 0.1 K/mm3 (0.0-0.1) 06/14/21 07:10 Seg Neutrophils % 80.9 % (40.0-70.0) H 06/14/21 07:10 Seg Neutrophils # 5.7 K/mm3 (1.8-7.7) 06/14/21 07:10 PT 13.9 Sec. (12.2-14.9) 06/14/21 07:10 INR 0.97 (0.87-1.13) 06/14/21 07:10 Sodium 140 mmol/L (137-145) 06/14/21 07:10 Potassium 3.4 mmol/L (3.6-5.0) L 06/14/21 07:10 Chloride 101.1 mmol/L (98-107) 06/14/21 07:10 Carbon Dioxide 23 mmol/L (22-30) 06/14/21 07:10 Anion Gap 19 mmol/L 06/14/21 07:10 BUN 24 mg/dL (7-17) H 06/14/21 07:10 Creatinine 1.5 mg/dL (0.6-1.2) H 06/14/21 07:10 Estimated GFR 41 ml/min 06/14/21 07:10 BUN/Creatinine Ratio 16 % 06/14/21 07:10 Glucose 124 mg/dL (65-100) H 06/14/21 07:10 Calcium 9.3 mg/dL (8.4-10.2) 06/14/21 07:10 Total Bilirubin 0.20 mg/dL (0.1-1.2) 06/14/21 07:10 AST 14 units/L (5-40) 06/14/21 07:10 ALT 12 units/L (7-56) 06/14/21 07:10 Alkaline Phosphatase 82 units/L (35-129) 06/14/21 07:10 Total Protein 7.2 g/dL (6.3-8.2) 06/14/21 07:10 Albumin 4.1 g/dL (3.9-5) 06/14/21 07:10 Albumin/Globulin Ratio 1.3 % 06/14/21 07:10 Assessment and Plan Assessment and plan: Patient is a 75-year-old female with past medical history of schizophrenia, hypertension, tobacco use disorder who presented to the hospital today following a fall last night of which she could not move her right leg following the fall. She was in the ER noted to have his Septal fracture of the right hip. On physical exam was noted that the right lower extremity was shortened and Externa lly rotated. And has also received a dose of fentanyl with an appropriate consult and planning for surgery tomorrow we are asked to admit and manage. Patient seen and examined very poor historian he she lives with her son who is also her caregiver and is at the bedside. Reports to me that the patient on standing up last night from a sitting position staggered backwards and fell. He reports that this has also happened in the last year and a physician's office where the patient also sustained a fall after standing from a sitting position with no loss of consciousness reported at either time. At the previous event she had a fracture of her right requiring surgery. Patient was recently in the hospital here for an outpatient colonoscopy for hematochezia with no complications noted with anesthesia. She reports her pain to be a 3/10 in intensity at this time this is shortly after receiving fentanyl IV. X-ray of the knee right side showed no significant abnormality X-ray of the right ankle shows no significant abnormality Bilateral hip x-ray shows subcapital fracture involving the right hip with superior displacement of distal fragment. Moderate underlying osteopenia. Chest x-ray shows bilateral infiltrate left greater than right. Aspiration versus atelectasis Assessment Right subcapital fracture of the hip with superior displacement of distal fragment Debility with recurrent falls Right hip pain secondary to hip fracture Community-acquired pneumonia with possible aspiration Schizophrenia Underlining metabolic encephalopathy secondary to schizophrenia exacerbated by recent fracture. Acute kidney injury likely secondary to vasomotor nephropathy Hypertension Hypokalemia Tobacco use disorder with possible underlining COPD no mention of confirmatory diagnosis by family except medications which indicate the same Plan Admit patient to [facility] with remote telemetry I have discussed with orthopedic surgeon who has been consulted patient is planned for surgery in a.m. we will keep n.p.o. after midnight for the same Pain control Nephrology consultation for [place] Gentle hydration today with normal saline and change to D5 after midnight with patient is n.p.o. PT OT evaluation and treat Replace potassium Counseling provided to the patient and the son who is the patient's caregiver need to quit tobacco use Nicotine patch We will hold aspirin at this time due to pending surgery patient has no history of cardiac disease DVT and GI prophylaxis Plan of care discussed with the patient with the son and also with orthopedic surgeon and v belt coverer Advance Directives: Yes Plan of care discussed with patient/family: Yes
--- NOTE | 2021-06-14 09:25 | Consultation ---
History of Present Illness - Reason for Consult Consult date: 06/14/21 acute renal failure, hypokalemia - History of Present Illness Mrs. Puga is a 75yo with hypertension who presents to the ED s/p fall. Patient denies dizziness, syncope, imbalance prior to fall. Following fall, she began t o experience righ leg/hip and inability to move her right leg which prompted her presentation to the ED Imaging notable for right subcapital fracture of the hip with superior displacement of distal fragment Labs notable for SCr 1.5mg/dL and K 3.4. She denies a prior hx of renal dysfunction. She denies hematuria, epistaxis, hemoptysis, nephrolithiasis, recurrent UTI. She does report frequent use of NSAIDs - BC/Goody powder Past History Past Medical History: hypertension, other (Schizophrenia) Past Surgical History: Other (Right upper extremity surgery) Social history: smoking, full code Family history: no significant family history Medications and Allergies Allergies Allergy/AdvReac Type Severity Reaction Status Date / Time morphine Allergy Rash Verified 06/20/20 10:53 Home Medications Medication Instructions Recorded Confirmed Last Taken Type Aspirin 1 tab PO DAILY 04/17/18 04/17/18 04/16/18 History Cogentin 1 tab PO HS 04/17/18 04/17/18 04/16/18 History Famotidine [Pepcid] 1 tab PO DAILY 04/17/18 04/17/18 04/16/18 History Haloperidol Decanoate [Haldol 150 mg IM QMONTH 04/17/18 04/17/18 03/21/18 History Decanoate] Omeprazole 1 tab PO DAILY 04/17/18 04/17/18 04/16/18 History Sertraline [Zoloft] 1 tab PO DAILY 04/17/18 04/17/18 04/16/18 History amLODIPine 1 tab PO DAILY 04/17/18 04/17/18 04/16/18 History HYDROcodone/APAP 5-325 [[place] 1 each PO Q4HR PRN #12 tablet 06/20/20 Unknown Rx 5-325 mg TAB] Naproxen [EC-Naprosyn] 500 mg PO Q12HR PRN #20 tablet. 06/20/20 Unknown Rx Active Meds: Active Medications Acetaminophen (Acetaminophen 325 Mg Tab) 650 mg PO Q4H PRN PRN Reason: Pain MILD(1-3)/Fever >100.5/SANTOS Albuterol (Albuterol 2.5 Mg/3 Ml Nebu) 2.5 mg IH Q3HRT PRN PRN Reason: Shortness Of Breath Amlodipine Besylate (Amlodipine 10 Mg Tab) 10 mg PO QDAY [facility] Arformoterol Tartrate (Arformoterol 15 Mcg/2 Ml Nebu) 15 mcg IH Q12HRT [facility] Benztropine Mesylate (Benztropine 1 Mg Tab) 1 mg PO BID [facility] Budesonide (Budesonide 0.5 Mg/2 Ml Nebu) 0.5 mg IH Q12HRT [facility] Carvedilol (Carvedilol 3.125 Mg Tab) 3.125 mg PO BID [facility] Docusate Sodium (Docusate Sodium 100 Mg Cap) 100 mg PO BID [facility] Famotidine (Famotidine 20 Mg/2 Ml Inj) 20 mg IV BID [facility] Heparin Sodium (Porcine) (Heparin 5,000 Unit/1 Ml Vial) 5,000 unit SUB-Q Q8HR [facility] Hydrochlorothiazide (Hydrochlorothiazide 12.5 Mg Cap) 12.5 mg PO QDAY [facility] Dextrose/Sodium Chloride (D5/0.45ns) 1,000 mls @ 75 mls/hr IV DIRECT [facility] Sodium Chloride (Nacl 0.9% 1000 Ml) 1,000 mls @ 125 mls/hr IV DIRECT [facility] Stop: 06/14/21 22:00 Levofloxacin (Levofloxacin 500 Mg Tab) 500 mg PO Q24HR [facility]; Protocol Metoclopramide HCl (Metoclopramide 10 Mg/2 Ml Inj) 10 mg IV Q6H PRN PRN Reason: Nausea And Vomiting Naloxone HCl (Naloxone 0.4 Mg/1 Ml Inj) 0.1 mg IV Q2MIN PRN PRN Reason: Res Rate </= 8 or 02 SAT < 92% Ondansetron HCl (Ondansetron 4 Mg/2 Ml Inj) 4 mg IV Q4H PRN PRN Reason: Nausea And Vomiting Oxycodone/Acetaminophen (Oxycodone /Acetaminophen 5-325mg Tab) 1 tab PO Q6H PRN PRN Reason: Pain, Moderate (4-6) Potassium Chloride (Potassium Chloride Er 20 Meq Tab) 40 meq PO ONCE ONE Stop: 06/14/21 10:01 Pravastatin Sodium (Pravastatin 40 Mg Tab) 40 mg PO QHS [facility] Senna (Sennosides 8.6 Mg Tab) 8.6 mg PO Q12HR [facility] Sertraline HCl (Sertraline 100 Mg Tab) 100 mg PO QDAY [facility] Sodium Chloride (Sodium Chloride 0.9% 10 Ml Flush Syringe) 10 ml IV BID [facility] Sodium Chloride (Sodium Chloride 0.9% 10 Ml Flush Syringe) 10 ml IV PRN PRN PRN Reason: LINE FLUSH Review of Systems All systems: negative Exam - Vital Signs Vital signs: Vital Signs Temp Pulse Resp BP Pulse Ox 98 F 78 16 104/51 98 06/14/21 04:27 06/14/21 04:27 06/14/21 04:27 06/14/21 04:27 06/14/21 04:27 - General Appearance General appearance: well-developed, well-nourished EENT: ATNC Respiratory: Clear to Ascultation Heart: regular, S1S2 Gastrointestinal: Present: normal Integumentary: no rash, warm and dry Neurologic: no focal deficit, alert and oriented x3 Psychiatric: cooperative Results - Lab Results 06/14/21 07:10 06/14/21 07:10 Most recent lab results Calcium 9.3 mg/dL (8.4-10.2) 06/14/21 07:10 Assessment and Plan Impression: * Acute kidney injury vs underlying chronic kidney disease * Right subcapital fracture of the hip * Recurrent fall * Hypokalemia * Hypertension Plan: * Continue gentle IVF * Will hold HCTZ due to hypokalemia and slight elevation in SCr * Continue Amlodipine 10mg daily; titrate Coreg if indicated * Replete lytes prn * Obtain UA, urine lytes and UPCR * Obtain renal ultrasound * AM labs ordered * Thank you for consult - will follow along
[2021-06-14] MEDS: BUDESONIDE 0.5 MG/2 ML NEBU IH SCH ×2 (09:54→19:34)
[2021-06-14] MEDS: ARFORMOTEROL 15 MCG/2 ML NEBU IH SCH ×2 (09:54→19:34)
[2021-06-14] MEDS ORDERED: ONDANSETRON 4 MG/2 ML INJ IV PRN (10:00)
[2021-06-14] MEDS ORDERED: METOCLOPRAMIDE 10 MG/2 ML INJ IV PRN (10:00)
[2021-06-14] MEDS ORDERED: hydroCHLOROthiazide 12.5 MG CAP PO SCH (10:00)
[2021-06-14] MEDS ORDERED: NALOXONE 0.4 MG/1 ML INJ IV PRN (10:00)
[2021-06-14] MEDS ORDERED: POTASSIUM CHLORIDE ER 20 MEQ TAB PO ONE (10:00)
[2021-06-14] MEDS ORDERED: ALBUTEROL 2.5 MG/3 ML NEBU IH PRN (10:00)
[2021-06-14] MEDS ORDERED: levoFLOXacin 500 MG TAB PO SCH (10:00)
[2021-06-14] MEDS ORDERED: levoFLOXacin 500 MG TAB PO ONE (10:00)
[2021-06-14] MEDS ORDERED: SODIUM CHLORIDE 0.9% 1000 ML 1,000 ML IV SCH (10:00)
[2021-06-14] MEDS ORDERED: FAMOTIDINE 20 MG/2 ML INJ IV SCH (10:00)
--- NOTE | 2021-06-14 12:53 | Consultation ---
Past History Past Medical History: hypertension, other (Schizophrenia) Past Surgical History: Other (Right upper extremity surgery) Social history: smoking, full code Family history: no significant family history Medications and Allergies Allergies Allergy/AdvReac Type Severity Reaction Status Date / Time morphine Allergy Rash Verified 06/20/20 10:53 Home Medications Medication Instructions Recorded Confirmed Last Taken Type Aspirin 1 tab PO DAILY 04/17/18 04/17/18 04/16/18 History Cogentin 1 tab PO HS 04/17/18 04/17/18 04/16/18 History Famotidine [Pepcid] 1 tab PO DAILY 04/17/18 04/17/18 04/16/18 History Haloperidol Decanoate [Haldol 150 mg IM QMONTH 04/17/18 04/17/18 03/21/18 History Decanoate] Omeprazole 1 tab PO DAILY 04/17/18 04/17/18 04/16/18 History Sertraline [Zoloft] 1 tab PO DAILY 04/17/18 04/17/18 04/16/18 History amLODIPine 1 tab PO DAILY 04/17/18 04/17/18 04/16/18 History HYDROcodone/APAP 5-325 [[place] 1 each PO Q4HR PRN #12 tablet 06/20/20 Unknown Rx 5-325 mg TAB] Naproxen [EC-Naprosyn] 500 mg PO Q12HR PRN #20 tablet. 06/20/20 Unknown Rx Active Meds: Active Medications Acetaminophen (Acetaminophen 325 Mg Tab) 650 mg PO Q4H PRN PRN Reason: Pain MILD(1-3)/Fever >100.5/SANTOS Albuterol (Albuterol 2.5 Mg/3 Ml Nebu) 2.5 mg IH Q3HRT PRN PRN Reason: Shortness Of Breath Amlodipine Besylate (Amlodipine 10 Mg Tab) 10 mg PO QDAY МАРИНА Arformoterol Tartrate (Arformoterol 15 Mcg/2 Ml Nebu) 15 mcg IH Q12HRT [facility] Last Admin: 06/14/21 09:54 Dose: 15 mcg Benztropine Mesylate (Benztropine 1 Mg Tab) 1 mg PO BID МАРИНА Budesonide (Budesonide 0.5 Mg/2 Ml Nebu) 0.5 mg IH Q12HRT [facility] Last Admin: 06/14/21 09:54 Dose: 0.5 mg Carvedilol (Carvedilol 3.125 Mg Tab) 3.125 mg PO BID [facility] Docusate Sodium (Docusate Sodium 100 Mg Cap) 100 mg PO BID [facility] Famotidine (Famotidine 20 Mg/2 Ml Inj) 10 mg IV BID [facility] Heparin Sodium (Porcine) (Heparin 5,000 Unit/1 Ml Vial) 5,000 unit SUB-Q Q8HR [facility] Hydrochlorothiazide (Hydrochlorothiazide 12.5 Mg Cap) 12.5 mg PO QDAY [facility] Dextrose/Sodium Chloride (D5/0.45ns) 1,000 mls @ 75 mls/hr IV DIRECT [facility] Levofloxacin (Levofloxacin 250 Mg Tab) 250 mg PO Q24H [facility] Stop: 06/19/21 09:59 Metoclopramide HCl (Metoclopramide 10 Mg/2 Ml Inj) 10 mg IV Q6H PRN PRN Reason: Nausea And Vomiting Naloxone HCl (Naloxone 0.4 Mg/1 Ml Inj) 0.1 mg IV Q2MIN PRN PRN Reason: Res Rate </= 8 or 02 SAT < 92% Ondansetron HCl (Ondansetron 4 Mg/2 Ml Inj) 4 mg IV Q4H PRN PRN Reason: Nausea And Vomiting Oxycodone/Acetaminophen (Oxycodone /Acetaminophen 5-325mg Tab) 1 tab PO Q6H PRN PRN Reason: Pain, Moderate (4-6) Pravastatin Sodium (Pravastatin 40 Mg Tab) 40 mg PO QHS [facility] Senna (Sennosides 8.6 Mg Tab) 8.6 mg PO Q12HR [facility] Sertraline HCl (Sertraline 100 Mg Tab) 100 mg PO QDAY [facility] Sodium Chloride (Sodium Chloride 0.9% 10 Ml Flush Syringe) 10 ml IV BID [facility] Sodium Chloride (Sodium Chloride 0.9% 10 Ml Flush Syringe) 10 ml IV PRN PRN PRN Reason: LINE FLUSH
--- NOTE | 2021-06-14 13:04 | Consultation ---
History of Present Illness - HPI History of present illness: ORTHOPAEDIC CONSULTATION Assessment : 1. Displaced FEMORAL Neck fracture, RIGHT Hip; 2. Hx of schizophrenia; 3. Hx of previous falls Plan : 1. Bipolar hip replacement, right hip; 2. SCDs must be applied to each lower extremity now; 3. DVT prophylaxis; 4. PT protocol for hip fracture rehabilitation will begin postop day #1; 5. Case management for discharge planning and home health care nursing and home health care PT x3 weeks Discussion this is a 75-year-old female who had the misfortune of sustaining a fall at home last evening; was unable to bear weight on the right lower extremity and was brought to the emergency room where x-rays showed a femoral neck fracture right hip. She was admitted by the hospitalist and orthopedics was consulted this morning. Her son is at the bedside during the interview and examination. He does most of the talking; she does not appear to be in any significant distress or pain. He has a history of schizophrenia and hypertension but no other cardiovascular disease. History of cigarette smoking which I explained will have to stop for the next 6 weeks to ensure proper wound healing. Lamination: Elderly female in no acute distress lying in hospital bed. The right leg is shorter and externally rotated. There is definite pain to palpation across the trochanter and over the anterior hip joint. She is unable to do straight leg raise. Her motion is not tested secondary to pain. She is able to dorsiflex the foot up and down and has normal neurovascular exam for the foot and ankle. X-rays: AP pelvis shows a completely displaced femoral neck fracture without any other acute abnormalities. There is mild to moderate osteoporosis in both femurs. No evidence of osteoarthritis. Past History Past Medical History: hypertension, other (Schizophrenia) Past Surgical History: Other (Right upper extremity surgery) Social history: smoking, full code Family history: no significant family history Medications and Allergies Allergies Allergy/AdvReac Type Severity Reaction Status Date / Time morphine Allergy Rash Verified 06/20/20 10:53 Home Medications Medication Instructions Recorded Confirmed Last Taken Type Aspirin 1 tab PO DAILY 04/17/18 04/17/18 04/16/18 History Cogentin 1 tab PO HS 04/17/18 04/17/18 04/16/18 History Famotidine [Pepcid] 1 tab PO DAILY 04/17/18 04/17/18 04/16/18 History Haloperidol Decanoate [Haldol 150 mg IM QMONTH 04/17/18 04/17/18 03/21/18 History Decanoate] Omeprazole 1 tab PO DAILY 04/17/18 04/17/18 04/16/18 History Sertraline [Zoloft] 1 tab PO DAILY 04/17/18 04/17/18 04/16/18 History amLODIPine 1 tab PO DAILY 04/17/18 04/17/18 04/16/18 History HYDROcodone/APAP 5-325 [[place] 1 each PO Q4HR PRN #12 tablet 06/20/20 Unknown Rx 5-325 mg TAB] Naproxen [EC-Naprosyn] 500 mg PO Q12HR PRN #20 tablet. 06/20/20 Unknown Rx Active Meds: Active Medications Acetaminophen (Acetaminophen 325 Mg Tab) 650 mg PO Q4H PRN PRN Reason: Pain MILD(1-3)/Fever >100.5/SANTOS Albuterol (Albuterol 2.5 Mg/3 Ml Nebu) 2.5 mg IH Q3HRT PRN PRN Reason: Shortness Of Breath Amlodipine Besylate (Amlodipine 10 Mg Tab) 10 mg PO QDAY МАРИНА Arformoterol Tartrate (Arformoterol 15 Mcg/2 Ml Nebu) 15 mcg IH Q12HRT [facility] Last Admin: 06/14/21 09:54 Dose: 15 mcg Benztropine Mesylate (Benztropine 1 Mg Tab) 1 mg PO BID МАРИНА Budesonide (Budesonide 0.5 Mg/2 Ml Nebu) 0.5 mg IH Q12HRT [facility] Last Admin: 06/14/21 09:54 Dose: 0.5 mg Carvedilol (Carvedilol 3.125 Mg Tab) 3.125 mg PO BID [facility] Docusate Sodium (Docusate Sodium 100 Mg Cap) 100 mg PO BID МАРИНА Famotidine (Famotidine 20 Mg/2 Ml Inj) 10 mg IV BID МАРИНА Heparin Sodium (Porcine) (Heparin 5,000 Unit/1 Ml Vial) 5,000 unit SUB-Q Q8HR МАРИНА Hydrochlorothiazide (Hydrochlorothiazide 12.5 Mg Cap) 12.5 mg PO QDAY [facility] Dextrose/Sodium Chloride (D5/0.45ns) 1,000 mls @ 75 mls/hr IV DIRECT МАРИНА Levofloxacin (Levofloxacin 250 Mg Tab) 250 mg PO Q24H МАРИНА Stop: 06/19/21 09:59 Metoclopramide HCl (Metoclopramide 10 Mg/2 Ml Inj) 10 mg IV Q6H PRN PRN Reason: Nausea And Vomiting Naloxone HCl (Naloxone 0.4 Mg/1 Ml Inj) 0.1 mg IV Q2MIN PRN PRN Reason: Res Rate </= 8 or 02 SAT < 92% Ondansetron HCl (Ondansetron 4 Mg/2 Ml Inj) 4 mg IV Q4H PRN PRN Reason: Nausea And Vomiting Oxycodone/Acetaminophen (Oxycodone /Acetaminophen 5-325mg Tab) 1 tab PO Q6H PRN PRN Reason: Pain, Moderate (4-6) Pravastatin Sodium (Pravastatin 40 Mg Tab) 40 mg PO QHS МАРИНА Senna (Sennosides 8.6 Mg Tab) 8.6 mg PO Q12HR МАРИНА Sertraline HCl (Sertraline 100 Mg Tab) 100 mg PO QDAY МАРИНА Sodium Chloride (Sodium Chloride 0.9% 10 Ml Flush Syringe) 10 ml IV BID МАРИНА Sodium Chloride (Sodium Chloride 0.9% 10 Ml Flush Syringe) 10 ml IV PRN PRN PRN Reason: LINE FLUSH
[2021-06-14] MEDS: amLODIPine 10 MG TAB PO SCH (13:05)
[2021-06-14] MEDS: DOCUSATE SODIUM 100 MG CAP PO SCH ×2 (13:06→21:24)
[2021-06-14] MEDS: BENZTROPINE 1 MG TAB PO SCH ×2 (13:06→21:24)
[2021-06-14] MEDS: SERTRALINE 100 MG TAB PO SCH (13:06)
[2021-06-14] MEDS: SENNOSIDES 8.6 MG TAB PO SCH ×2 (13:06→21:24)
[2021-06-14] MEDS: carvediloL 3.125 MG TAB PO SCH ×2 (13:07→21:25)
[2021-06-14] MEDS: FAMOTIDINE 20 MG/2 ML INJ IV SCH ×2 (13:07→21:25)
[2021-06-14] MEDS: HEPARIN 5,000 UNIT/1 ML VIAL SUB-Q SCH ×2 (13:08→21:24)
[2021-06-14] MEDS: oxyCODONE /ACETAMINOPHEN 5-325MG TAB PO PRN (15:42)
[2021-06-14 16:20] LABS: Hematocrit 35.5 % (30.3-42.9); Hemoglobin 11.7 gm/dl (10.1-14.3); Mean Corpuscular HGB Conc 33 % (30-34); Mean Corpuscular Volume 97 fl (79-97); Platelet Count 126 K/mm3 (140-440); Red Blood Count 3.67 M/mm3 (3.65-5.03); Red Cell Distribution Width 15.3 % (13.2-15.2)
--- NOTE | 2021-06-14 16:35 | Ultrasound Report ---
ULTRASOUND RENAL INDICATION / CLINICAL INFORMATION: SIERRA. COMPARISON: Abdominal ultrasound 10/20/2012. FINDINGS: RIGHT KIDNEY: Length = 10.4 cm. - Echogenicity: Normal. - Parenchymal Thickness: Moderate thinning. - Hydronephrosis: None. - Cyst / Mass: Simple appearing cyst measuring 3.0 x 2.7 x 2.8 cm, previously 9 mm. - Stones: None seen. LEFT KIDNEY: Length = 10.6 cm. - Echogenicity: Normal. - Parenchymal Thickness: Mild thinning. - Hydronephrosis: None. - Cyst / Mass: Simple appearing cyst measuring 2.2 x 2.6 x 1.9 cm, previously 4.5 cm. - Stones: None seen. URINARY BLADDER: Distended. No significant abnormality. FREE FLUID: None. ADDITIONAL FINDINGS: None. IMPRESSION: 1. Findings suggestive of bilateral medical renal disease. 2. Bilateral simple renal cysts, as described above. Scribed by: Kathryn Anand RDMS, KEVIN, JOSEFINA Scribed: 06/14/2021 3:00 PM I have reviewed the images, agree with this report, and edited this report as needed. Signer Name: Dean Posey DO Signed: 06/14/2021 4:31 PM Workstation Name: [email or web address]
[2021-06-14 16:42] LABS: INR 1.05 (0.87-1.13)
[2021-06-14 16:43] LABS: Partial Thromboplastin Time 38.4 Sec. (24.2-36.6)
[2021-06-14] MEDS: PRAVASTATIN 40 MG TAB PO SCH (21:25)
[2021-06-14] MEDS: D5W/0.45% NACL 1,000 ML IV SCH (21:27)
[2021-06-15 04:35] LABS: Bacteria,Urine 1+ /HPF (Negative); Mucus,Urine FEW /HPF
[2021-06-15 04:41] LABS: Bilirubin,Urine Negative (Negative); Blood,Urine Negative (Negative); Color,Urine Yellow (Yellow); Creatinine,Urine 102.7 mg/dL (0.1-20.0); Protein,Urine <15 mg/dL mg/dL (Negative); Protein/Creatinine Ratio,Urine 0.2; Urobilinogen,Urine < 2.0 mg/dL (<2.0)
[2021-06-15 05:26] LABS: Basophils % (Auto) 0.4 % (0.0-1.8); Eosinophils # (Auto) 0.1 K/mm3 (0.0-0.4); Eosinophils % (Auto) 1.7 % (0.0-4.3); Hematocrit 33.5 % (30.3-42.9); Hemoglobin 11.1 gm/dl (10.1-14.3); Lymphocytes # (Auto) 0.7 K/mm3 (1.2-5.4); Lymphocytes % (Auto) 14.6 % (13.4-35.0); Mean Corpuscular HGB Conc 33 % (30-34); Mean Corpuscular Volume 97 fl (79-97); Monocytes # (Auto) 0.4 K/mm3 (0.0-0.8); Monocytes % (Auto) 6.9 % (0.0-7.3); Platelet Count 112 K/mm3 (140-440); Red Blood Count 3.47 M/mm3 (3.65-5.03); Red Cell Distribution Width 15.2 % (13.2-15.2)
[2021-06-15 05:45] LABS: Albumin 3.8 g/dL (3.9-5); Calcium 8.7 mg/dL (8.4-10.2)
--- NOTE | 2021-06-15 08:14 | Progress Note ---
Assessment and Plan Assessment and plan: Assessment/Plan #Right subcapital fracture of the hip with superior displacement of distal fragment -plan for hip repair by Orthopaedics today -PT evaluation post-op -will require DVT ppx post operatively -PRN pain medication #Debility with recurrent falls -PT evaluation pending -patient lives at home with family -will likely require rehabilitation post operatively #Community-acquired pneumonia with possible aspiration -CXR with bibasilar opacities computer help desk representative of atelectases versus pneumonia -patient received empiric abx for CAP -patient without signs and symptoms suggestive of PNA -will discontinue abx at this time #Schizophrenia -stable, will continue home medications #Acute kidney injury likely secondary to vasomotor nephropathy #Volume depletion -SCr improved following IVFs -will continue IVFs while patient NPO -Renal US shows medical renal disease with bilateral cysts -Nephrology consulted, assistance appreciated #Hypokalemia -likely 2/2 to HCTZ -will replete and monitor daily #Hypertension -will continue amlodipine and coreg -HCTZ held due to hypoK and SIERRA -likely exacerbated by pain from acute injury -goal SBP <160 while inpatient #COPD -stable, not in acute exacerbation -will continue home inhalers History Interval history: No acute events overnight. Patient reports that pain is 9 out of 10. Has had relief with as needed pain medications. No other complaints at this time. Hospitalist Physical - Physical exam Narrative exam: GENERAL: Well-developed well-nourished. In no acute distress. HEENT: Normocephalic. Atraumatic. NECK: Supple. CHEST/LUNGS: CTAB on room air HEART/CARDIOVASCULAR: RRR. No murmur, rubs or gallops appreciated. ABDOMEN: +BS. NT/ND. SKIN: No rashes noted. NEURO: No focal motor deficit. Follows all commands. MUSCULOSKELETAL: No joint effusion. R hip joint TTP. EXTREMITIES: No cyanosis, clubbing or edema. PSYCH: Cooperative. - Constitutional Vitals: Temp Pulse Resp BP Pulse Ox 98.2 F 81 20 157/70 93 06/15/21 05:10 06/15/21 05:10 06/15/21 05:10 06/15/21 05:10 06/15/21 05:10 Results - Labs CBC & Chem 7: 06/15/21 04:54 06/15/21 04:54 Labs: Laboratory Last Values WBC 5.1 K/mm3 (4.5-11.0) 06/15/21 04:54 RBC 3.47 M/mm3 (3.65-5.03) L 06/15/21 04:54 Hgb 11.1 gm/dl (10.1-14.3) 06/15/21 04:54 Hct 33.5 % (30.3-42.9) 06/15/21 04:54 MCV 97 fl (79-97) 06/15/21 04:54 MCH 32 pg (28-32) 06/15/21 04:54 MCHC 33 % (30-34) 06/15/21 04:54 RDW 15.2 % (13.2-15.2) 06/15/21 04:54 Plt Count 112 K/mm3 (140-440) L 06/15/21 04:54 Lymph % (Auto) 14.6 % (13.4-35.0) 06/15/21 04:54 Mayes % (Auto) 6.9 % (0.0-7.3) 06/15/21 04:54 Eos % (Auto) 1.7 % (0.0-4.3) 06/15/21 04:54 Baso % (Auto) 0.4 % (0.0-1.8) 06/15/21 04:54 Lymph # (Auto) 0.7 K/mm3 (1.2-5.4) L 06/15/21 04:54 Mayes # (Auto) 0.4 K/mm3 (0.0-0.8) 06/15/21 04:54 Eos # (Auto) 0.1 K/mm3 (0.0-0.4) 06/15/21 04:54 Baso # (Auto) 0.0 K/mm3 (0.0-0.1) 06/15/21 04:54 Seg Neutrophils % 76.4 % (40.0-70.0) H 06/15/21 04:54 Seg Neutrophils # 3.9 K/mm3 (1.8-7.7) 06/15/21 04:54 PT 14.9 Sec. (12.2-14.9) 06/14/21 15:56 INR 1.05 (0.87-1.13) 06/14/21 15:56 APTT 38.4 Sec. (24.2-36.6) H 06/14/21 15:56 Sodium 141 mmol/L (137-145) 06/15/21 04:54 Potassium 3.3 mmol/L (3.6-5.0) L 06/15/21 04:54 Chloride 103.5 mmol/L (98-107) 06/15/21 04:54 Carbon Dioxide 24 mmol/L (22-30) 06/15/21 04:54 Anion Gap 17 mmol/L 06/15/21 04:54 BUN 16 mg/dL (7-17) 06/15/21 04:54 Creatinine 1.1 mg/dL (0.6-1.2) 06/15/21 04:54 Estimated GFR 59 ml/min 06/15/21 04:54 BUN/Creatinine Ratio 15 % 06/15/21 04:54 Glucose 119 mg/dL (65-100) H 06/15/21 04:54 Calcium 8.7 mg/dL (8.4-10.2) 06/15/21 04:54 Total Bilirubin 0.40 mg/dL (0.1-1.2) 06/15/21 04:54 AST 13 units/L (5-40) 06/15/21 04:54 ALT 8 units/L (7-56) 06/15/21 04:54 Alkaline Phosphatase 75 units/L (35-129) 06/15/21 04:54 Total Protein 6.9 g/dL (6.3-8.2) 06/15/21 04:54 Albumin 3.8 g/dL (3.9-5) L 06/15/21 04:54 Albumin/Globulin Ratio 1.2 % 06/15/21 04:54 Urine Color Yellow (Yellow) 06/15/21 04:20 Urine Turbidity Clear (Clear) 06/15/21 04:20 Urine pH 5.0 (5.0-7.0) 06/15/21 04:20 Ur Specific Albers 1.035 (1.003-1.030) H 06/15/21 04:20 Urine Protein <15 mg/dl mg/dL (Negative) 06/15/21 04:20 Urine Glucose (UA) Negative mg/dL (Negative) 06/15/21 04:20 Urine Ketones Negative mg/dL (Negative) 06/15/21 04:20 Urine Blood Negative (Negative) 06/15/21 04:20 Urine Nitrite Positive (Negative) 06/15/21 04:20 Ur Reducing Substances Not Reportable 06/15/21 04:20 Urine Bilirubin Negative (Negative) 06/15/21 04:20 Urine Ictotest Not Reportable 06/15/21 04:20 Urine Urobilinogen < 2.0 mg/dL (<2.0) 06/15/21 04:20 Ur Leukocyte Esterase Moderate (Negative) 06/15/21 04:20 Urine WBC (Auto) 26.0 /HPF (0.0-6.0) H 06/15/21 04:20 Urine RBC (Auto) 2.0 /HPF (0.0-6.0) 06/15/21 04:20 U Epithel Cells (Auto) < 1.0 /HPF (0-13.0) 06/15/21 04:20 Urine Bacteria (Auto) 1+ /HPF (Negative) 06/15/21 04:20 Urine Mucus Few /HPF 06/15/21 04:20 Urine Creatinine 102.7 mg/dL (0.1-20.0) H 06/15/21 04:20 Protein/Creatinin Ratio 0.20 06/15/21 04:20 Urine Sodium 58 mmol/L 06/15/21 04:20 Urine Total Protein 21 mg/dL (5-11.8) H 06/15/21 04:20 Frye/IV: Voiding Method External Female Catheter Active Medications - Current Medications Current Medications: Generic Name Dose Route Start Last Admin Trade Name Freq PRN Reason Stop Dose Admin Acetaminophen 650 mg 06/14/21 10:00 Acetaminophen 325 Mg Tab PO Q4H PRN Pain MILD(1-3)/Fever >100.5/SANTOS Albuterol 2.5 mg 06/14/21 10:00 Albuterol 2.5 Mg/3 Ml Nebu IH Q3HRT PRN Shortness Of Breath Amlodipine Besylate 10 mg 06/14/21 10:00 06/14/21 13:05 Amlodipine 10 Mg Tab PO 10 mg QDAY МАРИНА Administration Apixaban 2.5 mg 06/15/21 22:00 Apixaban 2.5 Mg Tab PO Q12HR МАРИНА Protocol Arformoterol Tartrate 15 mcg 06/14/21 10:00 06/14/21 19:34 Arformoterol 15 Mcg/2 Ml Nebu IH 15 mcg Q12HRT МАРИНА Administration Benztropine Mesylate 1 mg 06/14/21 10:00 06/14/21 21:24 Benztropine 1 Mg Tab PO 1 mg BID МАРИНА Administration Budesonide 0.5 mg 06/14/21 10:00 06/14/21 19:34 Budesonide 0.5 Mg/2 Ml Nebu IH 0.5 mg Q12HRT МАРИНА Administration Carvedilol 3.125 mg 06/14/21 10:00 06/14/21 21:25 Carvedilol 3.125 Mg Tab PO 3.125 mg BID МАРИНА Administration Docusate Sodium 100 mg 06/14/21 10:00 06/14/21 21:24 Docusate Sodium 100 Mg Cap PO 100 mg BID МАРИНА Administration Famotidine 10 mg 06/14/21 10:00 06/14/21 21:25 Famotidine 20 Mg/2 Ml Inj IV 10 mg BID МАРИНА Administration Dextrose/Sodium Chloride 1,000 mls @ 75 mls/hr 06/14/21 22:00 06/14/21 21:27 D5/0.45ns IV 75 mls/hr DIRECT МАРИНА Administration Levofloxacin 250 mg 06/15/21 10:00 Levofloxacin 250 Mg Tab PO 06/19/21 09:59 Q24H МАРИНА Metoclopramide HCl 10 mg 06/14/21 10:00 Metoclopramide 10 Mg/2 Ml Inj IV Q6H PRN Nausea And Vomiting Naloxone HCl 0.1 mg 06/14/21 10:00 Naloxone 0.4 Mg/1 Ml Inj IV Q2MIN PRN Res Rate </= 8 or 02 SAT < 92% Ondansetron HCl 4 mg 06/14/21 10:00 Ondansetron 4 Mg/2 Ml Inj IV Q4H PRN Nausea And Vomiting Oxycodone/Acetaminophen 1 tab 06/14/21 10:00 06/14/21 15:42 Oxycodone /Acetaminophen 5-325mg Tab PO 1 tab Q6H PRN Administration Pain, Moderate (4-6) Pravastatin Sodium 40 mg 06/14/21 22:00 06/14/21 21:25 Pravastatin 40 Mg Tab PO 40 mg QHS МАРИНА Administration Senna 8.6 mg 06/14/21 10:00 06/14/21 21:24 Sennosides 8.6 Mg Tab PO 8.6 mg Q12HR МАРИНА Administration Sertraline HCl 100 mg 06/14/21 10:00 06/14/21 13:06 Sertraline 100 Mg Tab PO 100 mg QDAY МАРИНА Administration Sodium Chloride 10 ml 06/14/21 10:00 06/14/21 21:26 Sodium Chloride 0.9% 10 Ml Flush Syringe IV 10 ml BID МАРИНА Administration Sodium Chloride 10 ml 06/14/21 10:00 Sodium Chloride 0.9% 10 Ml Flush Syringe IV PRN PRN LINE FLUSH
[2021-06-15] MEDS: carvediloL 3.125 MG TAB PO SCH ×2 (09:47→21:13)
[2021-06-15] MEDS ORDERED: levoFLOXacin 250 MG TAB PO SCH (10:00)
[2021-06-15] MEDS ORDERED: LACTATED RINGERS 1,000 ML ONE (10:14)
[2021-06-15] MEDS ORDERED: ceFAZolin/STERILE WATER 2 GM/20 ML SYRINGE IV NR (10:30)
--- NOTE | 2021-06-15 10:36 | Anesthesia Day of Surgery ---
Anesthesia Day of Surgery - Day of Surgery Patient Examined: Yes Patient H&P Reviewed: Yes Patient is NPO: Yes
[2021-06-15] MEDS ORDERED: ceFAZolin/Water 2 GM/20 ML 2 GM/20 ML SYRINGE IV ONE (10:41)
--- NOTE | 2021-06-15 10:41 | Anesthesia Consultation ---
Anesthesia Consult and Med Hx Date of service: 06/15/21 - Airway Anesthetic Teeth Evaluation: Edentulous ROM Head & Neck: Adequate Mental/Hyoid Distance: Adequate Mallampati Class: Class III Intubation Access Assessment: Probably Good - Pre-Operative Health Status ASA Pre-Surgery Classification: ASA3 Proposed Anesthetic Plan: General - Pulmonary Hx Smoking: Yes (1 PACK/DAY FOR 50 YEARS) COPD: Yes Hx Sleep Apnea: Yes (no CPAP) - Cardiovascular System Hx Hypertension: Yes (CHF - EF 55% on most recent echo) Hx Coronary Artery Disease: Yes Hx Heart Murmur: Yes - Central Nervous System CVA: Yes Hx Psychiatric Problems: Yes (schizophrenia) - Gastrointestinal Hx Gastroesophageal Reflux Disease: Yes - Endocrine Hx Renal Disease: Yes (CKD) - Hematic Hx Sickle Cell Disease: No - Other Systems Hx Alcohol Use: No Hx Substance Use: No Hx Cancer: Yes (cervical) Hx Obesity: No
[2021-06-15] MEDS ORDERED: ONDANSETRON 4 MG/2 ML INJ IV PRN (10:48)
[2021-06-15] MEDS ORDERED: HYDROmorphone 1 MG/1 ML INJ IV PRN ×2 (10:48)
[2021-06-15] MEDS ORDERED: ROCURONIUM 50 MG/5 ML INJ IV ONE (10:54)
[2021-06-15] MEDS ORDERED: LIDOCAINE MPF (2%) 20 MG/1 ML VIAL 5 ML ONE (10:54)
[2021-06-15] MEDS ORDERED: fentaNYL 100 MCG/2 ML INJ ONE (10:55)
[2021-06-15] MEDS ORDERED: propofoL 200 MG/20 ML VIAL IV ONE (10:55)
[2021-06-15] MEDS ORDERED: LACTATED RINGERS 1,000 ML IV SCH (11:00)
[2021-06-15] MEDS ORDERED: PHENYLEPHRINE/NS 1,000 MCG/10 ML SYRINGE (OR USE) IV ONE (11:30)
[2021-06-15] MEDS ORDERED: ONDANSETRON 4 MG/2 ML INJ ONE (11:36)
[2021-06-15] MEDS ORDERED: dexAMETHasone 20 MG/5 ML VIAL ONE (11:36)
[2021-06-15] MEDS: BUDESONIDE 0.5 MG/2 ML NEBU IH SCH ×3 (11:46→21:04)
[2021-06-15] MEDS: ARFORMOTEROL 15 MCG/2 ML NEBU IH SCH ×3 (11:46→21:04)
[2021-06-15] MEDS ORDERED: ePHEDrine SULFATE 50 MG/1 ML INJ ONE (12:00)
[2021-06-15] MEDS ORDERED: NEOSTIGMINE 10MG/10 ML INJ MDV ONE (12:02)
[2021-06-15] MEDS ORDERED: GLYCOPYRROLATE 0.4 MG/2 ML INJ ONE (12:02)
[2021-06-15] MEDS ORDERED: SODIUM CHLORIDE 0.9% IRR 1,500 ML BOTTLE IR ONE (12:06)
--- NOTE | 2021-06-15 12:34 | Progress Note ---
Assessment and Plan Impression: * Acute kidney injury vs underlying chronic kidney disease * Right subcapital fracture of the hip * Recurrent fall * Hypokalemia * Hypertension Plan: * Renal function improved * Replete KCl - 40meq today * UA c/w UTI - start Rocephin 1g IV daily * Continue Amlodipine 10mg daily; titrate Coreg if indicated * Replete lytes prn * AM labs ordered Subjective Date of service: 06/15/21 Interval history: Patient off the floor at time of visit. Objective - Exam Narrative Exam: Deferred - patient in the OR at time of visit - Vital Signs Vital signs: Vital Signs - 12hr 06/15/21 06/15/21 06/15/21 05:10 09:47 10:15 Temperature 98.2 F 100.5 F H Pulse Rate 81 89 78 Respiratory 20 18 Rate Blood Pressure 157/70 157/60 169/72 O2 Sat by Pulse 93 100 Oximetry - Lab 06/15/21 04:54 06/15/21 04:54 Most recent lab results Calcium 8.7 mg/dL (8.4-10.2) 06/15/21 04:54 Urine Creatinine 102.7 mg/dL (0.1-20.0) H 06/15/21 04:20 Urine Sodium 58 mmol/L 06/15/21 04:20 Urine Total Protein 21 mg/dL (5-11.8) H 06/15/21 04:20 Medications & Allergies - Medications Allergies/Adverse Reactions: Allergies morphine Allergy (Verified 06/20/20 10:53) Rash NAUSEA Home Medications: Home Medications Medication Instructions Recorded Confirmed Last Taken Type Famotidine [Pepcid] 1 tab PO BID 04/17/18 06/15/21 06/13/21 History Haloperidol Decanoate [Haldol 150 mg IM QMONTH 04/17/18 06/15/21 2 Weeks Ago History Decanoate] ~06/01/21 Sertraline [Zoloft] 1 tab PO DAILY 04/17/18 06/15/21 06/13/21 History Aspirin EC [Halfprin EC] 81 mg PO QDAY 06/15/21 06/15/21 06/13/21 History Benztropine [Cogentin] 1 mg PO QHS 06/15/21 06/15/21 06/13/21 History Fluticasone [Flonase] 1 spray NS QDAY PRN 06/15/21 06/15/21 Unknown History Omeprazole 40 mg PO QDAY 06/15/21 06/15/21 06/13/21 History Pravastatin [Pravachol] 20 mg PO QHS 06/15/21 06/15/21 06/13/21 History amLODIPine [Norvasc] 10 mg PO DAILY 06/15/21 06/15/21 06/13/21 History carvediloL [Coreg] 3.125 mg PO BID 06/15/21 06/15/21 06/13/21 History hydroCHLOROthiazide 12.5 mg PO QDAY 06/15/21 06/15/21 06/13/21 History [Hydrochlorothiazide] Active Medications: Generic Name Dose Route Start Last Admin Trade Name Freq PRN Reason Stop Dose Admin Acetaminophen 650 mg 06/14/21 10:00 Acetaminophen 325 Mg Tab PO Q4H PRN Pain MILD(1-3)/Fever >100.5/SANTOS Albuterol 2.5 mg 06/14/21 10:00 Albuterol 2.5 Mg/3 Ml Nebu IH Q3HRT PRN Shortness Of Breath Amlodipine Besylate 10 mg 06/14/21 10:00 06/14/21 13:05 Amlodipine 10 Mg Tab PO 10 mg QDAY МАРИНА Administration Apixaban 2.5 mg 06/15/21 22:00 Apixaban 2.5 Mg Tab PO Q12HR МАРИНА Protocol Arformoterol Tartrate 15 mcg 06/14/21 10:00 06/15/21 11:46 Arformoterol 15 Mcg/2 Ml Nebu IH Not Given Q12HRT МАРИНА Benztropine Mesylate 1 mg 06/14/21 10:00 06/14/21 21:24 Benztropine 1 Mg Tab PO 1 mg BID МАРИНА Administration Budesonide 0.5 mg 06/14/21 10:00 06/15/21 11:46 Budesonide 0.5 Mg/2 Ml Nebu IH Not Given Q12HRT МАРИНА Carvedilol 3.125 mg 06/14/21 10:00 06/15/21 09:47 Carvedilol 3.125 Mg Tab PO 3.125 mg BID МАРИНА Administration Cefazolin Sodium 2 gm 06/15/21 10:30 Cefazolin/Sterile Water 2 Gm/20 Ml Syringe IV 06/15/21 23:00 PREOP NR Docusate Sodium 100 mg 06/14/21 10:00 06/14/21 21:24 Docusate Sodium 100 Mg Cap PO 100 mg BID МАРИНА Administration Famotidine 10 mg 06/14/21 10:00 06/14/21 21:25 Famotidine 20 Mg/2 Ml Inj IV 10 mg BID МАРИНА Administration Hydromorphone HCl 0.25 mg 06/15/21 10:48 Hydromorphone 1 Mg/1 Ml Inj IV 06/15/21 20:00 Q10MIN PRN Pain, Moderate (4-6) Hydromorphone HCl 0.5 mg 06/15/21 10:48 Hydromorphone 1 Mg/1 Ml Inj IV 06/15/21 20:00 Q10MIN PRN Pain , Severe (7-10) Dextrose/Sodium Chloride 1,000 mls @ 75 mls/hr 06/14/21 22:00 06/14/21 21:27 D5/0.45ns IV 75 mls/hr DIRECT МАРИНА Administration Lactated Ringer's 1,000 mls @ 100 mls/hr 06/15/21 11:00 06/15/21 10:15 Lactated Ringers IV 06/16/21 10:59 100 mls/hr DIRECT МАРИНА Administration Metoclopramide HCl 10 mg 06/14/21 10:00 Metoclopramide 10 Mg/2 Ml Inj IV Q6H PRN Nausea And Vomiting Naloxone HCl 0.1 mg 06/14/21 10:00 Naloxone 0.4 Mg/1 Ml Inj IV Q2MIN PRN Res Rate </= 8 or 02 SAT < 92% Ondansetron HCl 4 mg 06/14/21 10:00 Ondansetron 4 Mg/2 Ml Inj IV Q4H PRN Nausea And Vomiting Ondansetron HCl 4 mg 06/15/21 10:48 Ondansetron 4 Mg/2 Ml Inj IV 06/15/21 18:00 ONCE PRN Nausea And Vomiting Oxycodone/Acetaminophen 1 tab 06/14/21 10:00 06/14/21 15:42 Oxycodone /Acetaminophen 5-325mg Tab PO 1 tab Q6H PRN Administration Pain, Moderate (4-6) Pravastatin Sodium 40 mg 06/14/21 22:00 06/14/21 21:25 Pravastatin 40 Mg Tab PO 40 mg QHS МАРИНА Administration Senna 8.6 mg 06/14/21 10:00 06/14/21 21:24 Sennosides 8.6 Mg Tab PO 8.6 mg Q12HR МАРИНА Administration Sertraline HCl 100 mg 06/14/21 10:00 06/14/21 13:06 Sertraline 100 Mg Tab PO 100 mg QDAY МАРИНА Administration Sodium Chloride 10 ml 06/14/21 10:00 06/14/21 21:26 Sodium Chloride 0.9% 10 Ml Flush Syringe IV 10 ml BID МАРИНА Administration Sodium Chloride 10 ml 06/14/21 10:00 Sodium Chloride 0.9% 10 Ml Flush Syringe IV PRN PRN LINE FLUSH
[2021-06-15] MEDS ORDERED: KETOROLAC 30 MG/1 ML INJ ONE (12:39)
--- NOTE | 2021-06-15 12:41 | Event Note ---
Date: 06/15/21 Attempted to evaluate the patient today. She is off the floor for dialysis.
[2021-06-15] MEDS ORDERED: ALBUTEROL 8.5 GM MDI INHALATION IH ONE (13:09)
--- NOTE | 2021-06-15 13:24 | Operative Report ---
Operative Report Operative Report: OPERATIOVE REPORT Preop diagnosis : Femoral neck fracture, right hip Postop diagnosis: FEMORAL neck fracture, right hip Procedure: Bipolar hip replacement, right hip Surgeon: Ad Balbuena MD assistant front office manager: Dr. Reyes Anesthesia: General with ETT Details of operative technique: After being appropriately prepared and cleared for surgery, the patient was brought to the operating room and the correct site was identified. General anesthesia was then administered. The patient was then placed in the decubitus position with the right hip up and all pressure points were padded. An axillary roll was placed under the appropriate side. The hip was then prepped and draped in the usual sterile fashion utilizing ChloraPrep solution as per total hip protocol. A space suit was worn by the operating surgeon. Antibiotics were administered prior to the start of the case in the form of 2 g Ancef. The hip was opened through a straight lateral approach. Dissection was carried down through the fibrofatty layer and bleeders were clamped and cauterized with the Bovie. The tensor fascia morelia was split the length of the incision and the Charnley retractor was carefully placed. The leg was then externally rotated and the gluteus medius and minimus were removed from the trochanter leaving a cuff of tissue for repair. Capsulectomy was then performed revealing fracture hematoma. Femoral head was removed and sized on the back table easily. A neck cut was then made with an oscillating saw and the leg was placed into the sterile bag. Attention was then turned toward the proximal femur. Box osteotome was utilized to create a lateral starting position. The proximal femur was then prepared with broaches sequentially up to a size #11 ; a trial reduction was then carried out with the #[address]. The patient required a +0 neck length and the bipolar 28 mm inside diameter/47 mm outside diameter head was assembled and the hip was reduced. Excellent stability was noted with the trial reduction. Patient was stable with full extension and external rotation as well as 90 degrees of flexion and internal rotation. Leg lengths were also normalized. Shuck test was negative. The proximal femur was then irrigated copiously with antibiotic solution. A size #11 press-fit stem made by [employer] was then impacted in place. Excellent rotational stability was achieved. A 28 mm / 47 mm bipolar head with +0 neck length was attached and the hip was once again reduced. Again excellent stability was confirmed in all planes. The wound was then irrigated thoroughly with antibiotic solution. The abductors were repaired with #1 Ethibond at the trochanter. The repair was oversewn with #1 Vicryl. Tensor fascia morelia was reapproximated with 0 Vicryl with a running locking suture. The subcutaneous layer was closed with 2-0 Vicryl and the skin was reapproximated with a Zipline system. A sterile compressive dressing was applied utilizing Xeroform and an ABD pad. The patient was then awakened and taken to recovery room in excellent condition. Estimated blood loss: 100 cc Drains : None Complications: None
[2021-06-15] MEDS ORDERED: POTASSIUM CHLORIDE ER 20 MEQ TAB PO NR (14:00)
[2021-06-15] MEDS: BENZTROPINE 1 MG TAB PO SCH ×2 (14:31→21:13)
[2021-06-15] MEDS: amLODIPine 10 MG TAB PO SCH (14:31)
[2021-06-15] MEDS: DOCUSATE SODIUM 100 MG CAP PO SCH ×2 (14:31→21:13)
[2021-06-15] MEDS: FAMOTIDINE 20 MG/2 ML INJ IV SCH ×2 (14:31→21:13)
[2021-06-15] MEDS: SERTRALINE 100 MG TAB PO SCH (14:32)
[2021-06-15] MEDS: SENNOSIDES 8.6 MG TAB PO SCH ×2 (14:32→21:13)
--- NOTE | 2021-06-15 15:24 | XRay Report ---
AP PELVIS INDICATION / CLINICAL INFORMATION: Postop. COMPARISON: Yesterday. FINDINGS: There is a new right hip prosthesis without complication. There is no evidence of acute fracture or s ubluxation. Signer Name: Hector Rodriguez MD Signed: 06/15/2021 3:20 PM Workstation Name: [id number]
--- NOTE | 2021-06-15 18:12 | Post Anesthesia Evaluation ---
- Post Anesthesia Evaluation Patient Participated: Yes Airway Patent: Yes Stable Respiratory Function: Yes Nausea/Vomiting: No Temp > 96.8F: Yes Pain Manageable: Yes Adequeate Hydration: Yes Anesthesia Complications: No Block Receding Appropriately: Not Applicable Patient on Ventilator: No
[2021-06-15] MEDS: PRAVASTATIN 40 MG TAB PO SCH (21:13)
[2021-06-15] MEDS: APIXABAN 2.5 MG TAB PO SCH (21:14)
[2021-06-16] MEDS: cefTRIAXone/NS 1 GM/50 ML 1 GM/50 ML BAG IV SCH (05:12)
[2021-06-16] MEDS: D5W/0.45% NACL 1,000 ML IV SCH (05:12)
[2021-06-16 06:11] LABS: Hemoglobin 8.7 gm/dl (10.1-14.3); Mean Corpuscular HGB Conc 35 % (30-34); Mean Corpuscular Volume 96 fl (79-97); Red Blood Count 2.59 M/mm3 (3.65-5.03)
[2021-06-16 06:16] LABS: Platelet Count 96 K/mm3 (140-440)
[2021-06-16 06:36] LABS: Calcium 8.4 mg/dL (8.4-10.2)
[2021-06-16] MEDS: ARFORMOTEROL 15 MCG/2 ML NEBU IH SCH ×2 (07:39→20:44)
[2021-06-16] MEDS: BUDESONIDE 0.5 MG/2 ML NEBU IH SCH ×2 (07:39→20:44)
[2021-06-16] MEDS ORDERED: POTASSIUM CHLORIDE ER 20 MEQ TAB PO NR (08:00)
--- NOTE | 2021-06-16 10:29 | Progress Note ---
Subjective Interval history: S : POD #1 ( S/P Bipolar hip Replacement , RIGHT hip); wake and alert lying in bed; son is at the bedside. No serious complaints; positive expected pain O : The dressing is intact on the right hip. Leg lengths are equal. She is able to perform a heel slide and with assistance do a small straight leg raise. Her active ranges from 0 to 45 degrees flexion. The foot is neurovascularly intact. There is no calf pain. A: Satisfactory postop course, bipolar hip replacement , right hip Postop day #1 P 1. Physical therapy for gait training with partial weightbearing status utilizing a walker along with safety precautions and transfers. 2. Case Management for home health care physical therapy which is a necessity upon discharge. 3. DVT prophylaxis utilizing Eliquis or other NOAC drug; DVT prophylaxis will extend 5 weeks following surgery. Objective Vital signs: Vital Signs - 12hr 06/16/21 06/16/21 05:25 07:39 Temperature 99.5 F Pulse Rate 92 H Pulse Rate [ 85 Anterior Bilateral Throughout] Respiratory 20 Rate Respiratory 18 Rate [Anterior Bilateral Throughout] Blood Pressure 127/69 O2 Sat by Pulse 92 95 Oximetry - Labs CBC & BMP: 06/16/21 05:46 06/16/21 05:46 Labs: Abnormal lab results 06/16/21 06/16/21 Range/Units 05:46 05:46 RBC 2.59 L (3.65-5.03) M/mm3 Hgb 8.7 L (10.1-14.3) gm/dl Hct 25.0 L D (30.3-42.9) % MCH 34 H (28-32) pg MCHC 35 H (30-34) % Plt Count 96 L (140-440) K/mm3 Sodium 136 L (137-145) mmol/L Potassium 3.4 L (3.6-5.0) mmol/L Glucose 126 H (65-100) mg/dL
[2021-06-16] MEDS: BENZTROPINE 1 MG TAB PO SCH ×2 (10:39→22:22)
[2021-06-16] MEDS: SENNOSIDES 8.6 MG TAB PO SCH ×2 (10:39→22:22)
[2021-06-16] MEDS: DOCUSATE SODIUM 100 MG CAP PO SCH ×2 (10:39→22:22)
[2021-06-16] MEDS: carvediloL 3.125 MG TAB PO SCH ×2 (10:40→22:23)
[2021-06-16] MEDS: amLODIPine 10 MG TAB PO SCH (10:41)
[2021-06-16] MEDS: APIXABAN 2.5 MG TAB PO SCH ×2 (10:42→22:23)
[2021-06-16] MEDS: SERTRALINE 100 MG TAB PO SCH (10:42)
[2021-06-16] MEDS: FAMOTIDINE 20 MG/2 ML INJ IV SCH ×2 (10:42→22:28)
[2021-06-16] MEDS: oxyCODONE /ACETAMINOPHEN 5-325MG TAB PO PRN (10:49)
--- NOTE | 2021-06-16 11:33 | Progress Note ---
Assessment and Plan Assessment and plan: Assessment/Plan #Right subcapital fracture of the hip with superior displacement of distal fragment -#POD: 1 s/p R bipolar hip repair -PT evaluation post-op pending -continue eliquis for DVT PPx for 5 weeks total -Orthopaedics following -PRN pain medication #Debility with recurrent falls -PT evaluation pending -patient lives at home with family -will likely require rehabilitation post operatively, CM aware and started the referral process #Acute cystitis -UA consistent with infection -continue rocephin #Community-acquired pneumonia with possible aspiration -CXR with bibasilar opacities commercial sales representative of atelectases versus pneumonia -patient received empiric abx for CAP -patient without signs and symptoms suggestive of PNA; will not treat #Schizophrenia -stable, will continue home medications #Acute kidney injury likely secondary to vasomotor nephropathy #Volume depletion -SCr improved following IVFs -IVFs discontinue due to patient tolerating diet -Renal US shows medical renal disease with bilateral cysts -Nephrology consulted, assistance appreciated #Hypokalemia -likely 2/2 to HCTZ -will replete and monitor daily #Hypertension -will continue amlodipine and coreg -HCTZ held due to hypoK and SIERRA -likely exacerbated by pain from acute injury -goal SBP <160 while inpatient #COPD -stable, not in acute exacerbation -will continue home inhalers #Advanced care planning -Disease education conducted, care plan discussed, diagnoses discussed, prognosis discussed, and patient acknowledges understanding with care plan -Time: +30 min History Interval history: No acute events overnight. Patient denies pain at this time. Son at bedside. We discussed current care plan. Patient has no complaints at this time. Hospitalist Physical - Physical exam Narrative exam: GENERAL: Well-developed well-nourished. In no acute distress. HEENT: Nasal cannula 2 L/min NECK: Supple. CHEST/LUNGS: CTAB on nasal cannula HEART/CARDIOVASCULAR: RRR. No murmur, rubs or gallops appreciated. ABDOMEN: +BS. NT/ND. SKIN: No rashes noted. NEURO: No focal motor deficit. Follows all commands. MUSCULOSKELETAL: No joint effusion. R hip with dressing intact. EXTREMITIES: No cyanosis, clubbing or edema. PSYCH: Cooperative. - Constitutional Vitals: Temp Pulse Resp BP Pulse Ox 100.5 F H 95 H 20 161/79 95 06/16/21 11:16 06/16/21 11:16 06/16/21 11:16 06/16/21 11:16 06/16/21 11:16 Results - Labs CBC & Chem 7: 06/16/21 05:46 06/16/21 05:46 Labs: Laboratory Last Values WBC 5.2 K/mm3 (4.5-11.0) 06/16/21 05:46 RBC 2.59 M/mm3 (3.65-5.03) L 06/16/21 05:46 Hgb 8.7 gm/dl (10.1-14.3) L 06/16/21 05:46 Hct 25.0 % (30.3-42.9) L D 06/16/21 05:46 MCV 96 fl (79-97) 06/16/21 05:46 MCH 34 pg (28-32) H 06/16/21 05:46 MCHC 35 % (30-34) H 06/16/21 05:46 RDW 15.0 % (13.2-15.2) 06/16/21 05:46 Plt Count 96 K/mm3 (140-440) L 06/16/21 05:46 Lymph % (Auto) 14.6 % (13.4-35.0) 06/15/21 04:54 [place] % (Auto) 6.9 % (0.0-7.3) 06/15/21 04:54 Eos % (Auto) 1.7 % (0.0-4.3) 06/15/21 04:54 Baso % (Auto) 0.4 % (0.0-1.8) 06/15/21 04:54 Lymph # (Auto) 0.7 K/mm3 (1.2-5.4) L 06/15/21 04:54 [place] # (Auto) 0.4 K/mm3 (0.0-0.8) 06/15/21 04:54 Eos # (Auto) 0.1 K/mm3 (0.0-0.4) 06/15/21 04:54 Baso # (Auto) 0.0 K/mm3 (0.0-0.1) 06/15/21 04:54 Seg Neutrophils % 76.4 % (40.0-70.0) H 06/15/21 04:54 Seg Neutrophils # 3.9 K/mm3 (1.8-7.7) 06/15/21 04:54 PT 14.9 Sec. (12.2-14.9) 06/14/21 15:56 INR 1.05 (0.87-1.13) 06/14/21 15:56 APTT 38.4 Sec. (24.2-36.6) H 06/14/21 15:56 Sodium 136 mmol/L (137-145) L 06/16/21 05:46 Potassium 3.4 mmol/L (3.6-5.0) L 06/16/21 05:46 Chloride 101.4 mmol/L (98-107) 06/16/21 05:46 Carbon Dioxide 24 mmol/L (22-30) 06/16/21 05:46 Anion Gap 14 mmol/L 06/16/21 05:46 BUN 15 mg/dL (7-17) 06/16/21 05:46 Creatinine 1.1 mg/dL (0.6-1.2) 06/16/21 05:46 Estimated GFR 59 ml/min 06/16/21 05:46 BUN/Creatinine Ratio 14 % 06/16/21 05:46 Glucose 126 mg/dL (65-100) H 06/16/21 05:46 Calcium 8.4 mg/dL (8.4-10.2) 06/16/21 05:46 Total Bilirubin 0.40 mg/dL (0.1-1.2) 06/15/21 04:54 AST 13 units/L (5-40) 06/15/21 04:54 ALT 8 units/L (7-56) 06/15/21 04:54 Alkaline Phosphatase 75 units/L (35-129) 06/15/21 04:54 Total Protein 6.9 g/dL (6.3-8.2) 06/15/21 04:54 Albumin 3.8 g/dL (3.9-5) L 06/15/21 04:54 Albumin/Globulin Ratio 1.2 % 06/15/21 04:54 Urine Color Yellow (Yellow) 06/15/21 04:20 Urine Turbidity Clear (Clear) 06/15/21 04:20 Urine pH 5.0 (5.0-7.0) 06/15/21 04:20 Ur Specific [place] 1.035 (1.003-1.030) H 06/15/21 04:20 Urine Protein <15 mg/dl mg/dL (Negative) 06/15/21 04:20 Urine Glucose (UA) Negative mg/dL (Negative) 06/15/21 04:20 Urine Ketones Negative mg/dL (Negative) 06/15/21 04:20 Urine Blood Negative (Negative) 06/15/21 04:20 Urine Nitrite Positive (Negative) 06/15/21 04:20 Ur Reducing Substances Not Reportable 06/15/21 04:20 Urine Bilirubin Negative (Negative) 06/15/21 04:20 Urine Ictotest Not Reportable 06/15/21 04:20 Urine Urobilinogen < 2.0 mg/dL (<2.0) 06/15/21 04:20 Ur Leukocyte Esterase Moderate (Negative) 06/15/21 04:20 Urine WBC (Auto) 26.0 /HPF (0.0-6.0) H 06/15/21 04:20 Urine RBC (Auto) 2.0 /HPF (0.0-6.0) 06/15/21 04:20 U Epithel Cells (Auto) < 1.0 /HPF (0-13.0) 06/15/21 04:20 Urine Bacteria (Auto) 1+ /HPF (Negative) 06/15/21 04:20 Urine Mucus Few /HPF 06/15/21 04:20 Urine Creatinine 102.7 mg/dL (0.1-20.0) H 06/15/21 04:20 Protein/Creatinin Ratio 0.20 06/15/21 04:20 Urine Sodium 58 mmol/L 06/15/21 04:20 Urine Total Protein 21 mg/dL (5-11.8) H 06/15/21 04:20 Frye/IV: Voiding Method External Female Catheter Active Medications - Current Medications Current Medications: Generic Name Dose Route Start Last Admin Trade Name Freq PRN Reason Stop Dose Admin Acetaminophen 650 mg 06/14/21 10:00 Acetaminophen 325 Mg Tab PO Q4H PRN Pain MILD(1-3)/Fever >100.5/SANTOS Albuterol 2.5 mg 06/14/21 10:00 Albuterol 2.5 Mg/3 Ml Nebu IH Q3HRT PRN Shortness Of Breath Amlodipine Besylate 10 mg 06/14/21 10:00 06/16/21 10:41 Amlodipine 10 Mg Tab PO 10 mg QDAY МАРИНА Administration Apixaban 2.5 mg 06/15/21 22:00 06/16/21 10:42 Apixaban 2.5 Mg Tab PO 2.5 mg Q12HR МАРИНА Administration Protocol Arformoterol Tartrate 15 mcg 06/14/21 10:00 06/16/21 07:39 Arformoterol 15 Mcg/2 Ml Nebu IH 15 mcg Q12HRT МАРИНА Administration Benztropine Mesylate 1 mg 06/14/21 10:00 06/16/21 10:39 Benztropine 1 Mg Tab PO 1 mg BID МАРИНА Administration Budesonide 0.5 mg 06/14/21 10:00 06/16/21 07:39 Budesonide 0.5 Mg/2 Ml Nebu IH 0.5 mg Q12HRT МАРИНА Administration Carvedilol 3.125 mg 06/14/21 10:00 06/16/21 10:40 Carvedilol 3.125 Mg Tab PO 3.125 mg BID МАРИНА Administration Docusate Sodium 100 mg 06/14/21 10:00 06/16/21 10:39 Docusate Sodium 100 Mg Cap PO 100 mg BID МАРИНА Administration Famotidine 10 mg 06/14/21 10:00 06/16/21 10:42 Famotidine 20 Mg/2 Ml Inj IV 10 mg BID МАРИНА Administration Ceftriaxone Sodium 1 gm in 50 mls @ 100 mls/hr 06/16/21 06:00 06/16/21 05:12 Rocephin/Ns 1 Gm/50 Ml IV 100 mls/hr Q24H МАРИНА Administration Protocol Metoclopramide HCl 10 mg 06/14/21 10:00 Metoclopramide 10 Mg/2 Ml Inj IV Q6H PRN Nausea And Vomiting Naloxone HCl 0.1 mg 06/14/21 10:00 Naloxone 0.4 Mg/1 Ml Inj IV Q2MIN PRN Res Rate </= 8 or 02 SAT < 92% Ondansetron HCl 4 mg 06/14/21 10:00 Ondansetron 4 Mg/2 Ml Inj IV Q4H PRN Nausea And Vomiting Oxycodone/Acetaminophen 1 tab 06/14/21 10:00 06/16/21 10:49 Oxycodone /Acetaminophen 5-325mg Tab PO 1 tab Q6H PRN Administration Pain, Moderate (4-6) Potassium Chloride 40 meq 06/16/21 08:00 06/16/21 08:24 Potassium Chloride Er 20 Meq Tab PO 06/16/21 12:00 40 meq ONCE@0800 NR Administration Pravastatin Sodium 40 mg 06/14/21 22:00 06/15/21 21:13 Pravastatin 40 Mg Tab PO 40 mg QHS МАРИНА Administration Senna 8.6 mg 06/14/21 10:00 06/16/21 10:39 Sennosides 8.6 Mg Tab PO 8.6 mg Q12HR МАРИНА Administration Sertraline HCl 100 mg 06/14/21 10:00 06/16/21 10:42 Sertraline 100 Mg Tab PO 100 mg QDAY МАРИНА Administration Sodium Chloride 10 ml 06/14/21 10:00 06/16/21 10:44 Sodium Chloride 0.9% 10 Ml Flush Syringe IV 10 ml BID МАРИНА Administration Sodium Chloride 10 ml 06/14/21 10:00 Sodium Chloride 0.9% 10 Ml Flush Syringe IV PRN PRN LINE FLUSH
--- NOTE | 2021-06-16 13:42 | Consultation ---
History of Present Illness - Reason for Consult Consult date: 06/16/21 Reason for consult: medication management - Chief Complaint Chief complaint: HIP FRACTURE - History of Present Psychiatric Illness The patient is a 75 year old female with history of schizophrenia; consulting for medication management. In my encounter with the patient, she is calm, alert and oriented x3. The patient's son Duglas Puga was at the bedside; he reports that the patient sees a psychiatrist every 3 months and receives Haldol Dec.100mg IM HARRIS monthly at [facility] [place]. The patient reports feeling sad because of a recent in the family. She denies being depressed or anxious. She denies any current suicidal/homicidal ideation and denies hallucinations. PAST PSYCHIATRIC HISTORY Diagnoses:Schizophrenia Suicide attempts or Self-harm behavior: Denies Prior psychiatric hospitalizations: Yes Substance Abuse history: Denies Previous psychiatric medications tried: Haldol, Zoloft Outpatient treatment: [facility] SOCIAL HISTORY Marital Status: Living Arrangements: Lives with son Employment Status: Retired Access to guns/weapons: Denied Education: 12th grade History of Abuse: Denied Legal History: None reported REVIEW OF SYSTEMS Constitutional: Negative for weight loss ENT: Negative for stridor Respiratory: Negative for cough or hemoptysis All other systems reviewed and are negative MENTAL STATUS EXAMINATION General Appearance and Behavior: Age appropriate, dressed appropriately, calm and uncooperative Cooperation: guarded Psychomotor Behavior: psychomotor normal Mood: "sad" Affect and affective range: Constricted Thought Process: goal oriented Thought Content: Reality oriented Speech: Normal volume, Regular rate and rhythm, Intellectual Functioning: Average Suicidal Ideation: Denies Homicidal Ideation: Denies Hallucinations: Denies Delusions: None elicited Impulse Control: Unimpaired Insight and Judgment: limited insight and judgment, Memory: Normal Attention: divided Orientation: Alert, oriented Assessment and Plan (1)HX Schizophrenia (2) Treatment plan Continue previous prescribed meds Risks, benefits and alternatives of medications discussed with the patient, questions answered and consent obtained from patient. PSYCHOTHERAPY: Supportive psychotherapy provided MEDICAL: Per primary team DELIRIUM PRECAUTIONS: Please re-orient patient frequently, keep lights on during the day, and minimize benzodiazepines and opiates as these medications could worsen patient's confusion. COUNSELING SERVICES MANAGER: Per medical team DISPOSITION: Do not Recommend acute inpatient psychiatric hospitalization. The patient understands that he should seek immediate assistance if SI/HI return The patient is to follow up with outpatient psych in 7 to 14 days upon discharge. Assistant Distribution Manager will provide patient with out patient resources. He is to abstain from all illicit drug use. Will sign off. Thank you for the consult. Please contact with any questions and/or concerns. Case staffed with Dr. Jones Medications and Allergies Medications and Allergies Allergies Allergy/AdvReac Type Severity Reaction Status Date / Time morphine Allergy Rash Verified 06/20/20 10:53 Home Medications Medication Instructions Recorded Confirmed Last Taken Type Famotidine [Pepcid] 1 tab PO BID 04/17/18 06/15/21 06/13/21 History Haloperidol Decanoate [Haldol 150 mg IM QMONTH 04/17/18 06/15/21 2 Weeks Ago History Decanoate] ~06/01/21 Sertraline [Zoloft] 1 tab PO DAILY 04/17/18 06/15/21 06/13/21 History Aspirin EC [Halfprin EC] 81 mg PO QDAY 06/15/21 06/15/21 06/13/21 History Benztropine [Cogentin] 1 mg PO QHS 06/15/21 06/15/21 06/13/21 History Fluticasone [Flonase] 1 spray NS QDAY PRN 06/15/21 06/15/21 Unknown History Omeprazole 40 mg PO QDAY 06/15/21 06/15/21 06/13/21 History Pravastatin [Pravachol] 20 mg PO QHS 06/15/21 06/15/21 06/13/21 History amLODIPine [Norvasc] 10 mg PO DAILY 06/15/21 06/15/21 06/13/21 History carvediloL [Coreg] 3.125 mg PO BID 06/15/21 06/15/21 06/13/21 History hydroCHLOROthiazide 12.5 mg PO QDAY 06/15/21 06/15/21 06/13/21 History [Hydrochlorothiazide] Active Meds: Active Medications Acetaminophen (Acetaminophen 325 Mg Tab) 650 mg PO Q4H PRN PRN Reason: Pain MILD(1-3)/Fever >100.5/SANTOS Albuterol (Albuterol 2.5 Mg/3 Ml Nebu) 2.5 mg IH Q3HRT PRN PRN Reason: Shortness Of Breath Amlodipine Besylate (Amlodipine 10 Mg Tab) 10 mg PO QDAY [facility] Last Admin: 06/16/21 10:41 Dose: 10 mg Apixaban (Apixaban 2.5 Mg Tab) 2.5 mg PO Q12HR [facility]; Protocol Last Admin: 06/16/21 10:42 Dose: 2.5 mg Arformoterol Tartrate (Arformoterol 15 Mcg/2 Ml Nebu) 15 mcg IH Q12HRT [facility] Last Admin: 06/16/21 07:39 Dose: 15 mcg Benztropine Mesylate (Benztropine 1 Mg Tab) 1 mg PO BID [facility] Last Admin: 06/16/21 10:39 Dose: 1 mg Budesonide (Budesonide 0.5 Mg/2 Ml Nebu) 0.5 mg IH Q12HRT [facility] Last Admin: 06/16/21 07:39 Dose: 0.5 mg Carvedilol (Carvedilol 3.125 Mg Tab) 3.125 mg PO BID [facility] Last Admin: 06/16/21 10:40 Dose: 3.125 mg Docusate Sodium (Docusate Sodium 100 Mg Cap) 100 mg PO BID [facility] Last Admin: 06/16/21 10:39 Dose: 100 mg Famotidine (Famotidine 20 Mg/2 Ml Inj) 10 mg IV BID [facility] Last Admin: 06/16/21 10:42 Dose: 10 mg Ceftriaxone Sodium (Rocephin/Ns 1 Gm/50 Ml) 1 gm in 50 mls @ 100 mls/hr IV Q24H [facility]; Protocol Last Admin: 06/16/21 05:12 Dose: 100 mls/hr Metoclopramide HCl (Metoclopramide 10 Mg/2 Ml Inj) 10 mg IV Q6H PRN PRN Reason: Nausea And Vomiting Naloxone HCl (Naloxone 0.4 Mg/1 Ml Inj) 0.1 mg IV Q2MIN PRN PRN Reason: Res Rate </= 8 or 02 SAT < 92% Ondansetron HCl (Ondansetron 4 Mg/2 Ml Inj) 4 mg IV Q4H PRN PRN Reason: Nausea And Vomiting Oxycodone/Acetaminophen (Oxycodone /Acetaminophen 5-325mg Tab) 1 tab PO Q6H PRN PRN Reason: Pain, Moderate (4-6) Last Admin: 06/16/21 10:49 Dose: 1 tab Pravastatin Sodium (Pravastatin 40 Mg Tab) 40 mg PO QHS [facility] Last Admin: 06/15/21 21:13 Dose: 40 mg Senna (Sennosides 8.6 Mg Tab) 8.6 mg PO Q12HR [facility] Last Admin: 06/16/21 10:39 Dose: 8.6 mg Sertraline HCl (Sertraline 100 Mg Tab) 100 mg PO QDAY [facility] Last Admin: 06/16/21 10:42 Dose: 100 mg Sodium Chloride (Sodium Chloride 0.9% 10 Ml Flush Syringe) 10 ml IV BID [facility] Last Admin: 06/16/21 10:44 Dose: 10 ml Sodium Chloride (Sodium Chloride 0.9% 10 Ml Flush Syringe) 10 ml IV PRN PRN PRN Reason: LINE FLUSH Mental Status Exam - Vital signs Last Vital Signs Temp 100.5 F H 06/16/21 11:16 Pulse 95 H 06/16/21 11:16 Resp 20 06/16/21 11:16 BP 161/79 06/16/21 11:16 Pulse Ox 95 06/16/21 11:16 Results Result Diagrams: 06/16/21 05:46 06/16/21 05:46 Abnormal lab results 06/16/21 06/16/21 Range/Units 05:46 05:46 RBC 2.59 L (3.65-5.03) M/mm3 Hgb 8.7 L (10.1-14.3) gm/dl Hct 25.0 L D (30.3-42.9) % MCH 34 H (28-32) pg MCHC 35 H (30-34) % Plt Count 96 L (140-440) K/mm3 Sodium 136 L (137-145) mmol/L Potassium 3.4 L (3.6-5.0) mmol/L Glucose 126 H (65-100) mg/dL All other labs normal.
--- NOTE | 2021-06-16 13:43 | Post Anesthesia Evaluation ---
- Post Anesthesia Evaluation Patient Participated: Yes Airway Patent: Yes Stable Respiratory Function: Yes Nausea/Vomiting: No Pain Manageable: Yes Adequeate Hydration: Yes Anesthesia Complications: No Patient on Ventilator: No
--- NOTE | 2021-06-16 14:43 | Progress Note ---
Assessment and Plan Impression: * Acute kidney injury vs underlying chronic kidney disease * Right subcapital fracture of the hip * Recurrent fall * Hypokalemia * Hypertension Plan: * Renal function improved, creatinine 1.1 * Replete KCl, note K 3.4 * Ensure nutrition as able * UA c/w UTI - on Rocephin 1g IV daily * Continue Amlodipine 10mg daily; titrate Coreg if indicated * Replete lytes prn * AM labs ordered Objective - Exam Narrative Exam: General appearance: well-developed, well-nourished EENT: ATNC Respiratory: Clear to Ascultation Heart: regular, S1S2 Gastrointestinal: Present: normal Integumentary: no rash, warm and dry Neurologic: no focal deficit, alert and oriented x3 Psychiatric: cooperative - Vital Signs Vital signs: Vital Signs - 12hr 06/16/21 06/16/21 06/16/21 05:25 07:39 10:40 Temperature 99.5 F Pulse Rate 92 H 95 H Pulse Rate [ 85 Anterior Bilateral Throughout] Respiratory 20 Rate Respiratory 18 Rate [Anterior Bilateral Throughout] Blood Pressure 127/69 161/79 Blood Pressure [Left] O2 Sat by Pulse 92 95 Oximetry 06/16/21 06/16/21 06/16/21 10:41 11:12 11:16 Temperature 99.1 F 100.5 F H Pulse Rate 95 H 85 95 H Pulse Rate [ Anterior Bilateral Throughout] Respiratory 22 20 Rate Respiratory Rate [Anterior Bilateral Throughout] Blood Pressure 161/79 113/67 Blood Pressure 161/79 [Left] O2 Sat by Pulse 95 95 Oximetry - Lab 06/16/21 05:46 06/16/21 05:46 Most recent lab results Calcium 8.4 mg/dL (8.4-10.2) 06/16/21 05:46 Urine Creatinine 102.7 mg/dL (0.1-20.0) H 06/15/21 04:20 Urine Sodium 58 mmol/L 06/15/21 04:20 Urine Total Protein 21 mg/dL (5-11.8) H 06/15/21 04:20 Medications & Allergies - Medications Allergies/Adverse Reactions: Allergies morphine Allergy (Verified 06/20/20 10:53) Rash NAUSEA Home Medications: Home Medications Medication Instructions Recorded Confirmed Last Taken Type Famotidine [Pepcid] 1 tab PO BID 04/17/18 06/15/21 06/13/21 History Haloperidol Decanoate [Haldol 150 mg IM QMONTH 04/17/18 06/15/21 2 Weeks Ago History Decanoate] ~06/01/21 Sertraline [Zoloft] 1 tab PO DAILY 04/17/18 06/15/21 06/13/21 History Aspirin EC [Halfprin EC] 81 mg PO QDAY 06/15/21 06/15/21 06/13/21 History Benztropine [Cogentin] 1 mg PO QHS 06/15/21 06/15/21 06/13/21 History Fluticasone [Flonase] 1 spray NS QDAY PRN 06/15/21 06/15/21 Unknown History Omeprazole 40 mg PO QDAY 06/15/21 06/15/21 06/13/21 History Pravastatin [Pravachol] 20 mg PO QHS 06/15/21 06/15/21 06/13/21 History amLODIPine [Norvasc] 10 mg PO DAILY 06/15/21 06/15/21 06/13/21 History carvediloL [Coreg] 3.125 mg PO BID 06/15/21 06/15/21 06/13/21 History hydroCHLOROthiazide 12.5 mg PO QDAY 06/15/21 06/15/21 06/13/21 History [Hydrochlorothiazide] Active Medications: Generic Name Dose Route Start Last Admin Trade Name Freq PRN Reason Stop Dose Admin Acetaminophen 650 mg 06/14/21 10:00 Acetaminophen 325 Mg Tab PO Q4H PRN Pain MILD(1-3)/Fever >100.5/SANTOS Albuterol 2.5 mg 06/14/21 10:00 Albuterol 2.5 Mg/3 Ml Nebu IH Q3HRT PRN Shortness Of Breath Amlodipine Besylate 10 mg 06/14/21 10:00 06/16/21 10:41 Amlodipine 10 Mg Tab PO 10 mg QDAY МАРИНА Administration Apixaban 2.5 mg 06/15/21 22:00 06/16/21 10:42 Apixaban 2.5 Mg Tab PO 2.5 mg Q12HR МАРИНА Administration Protocol Arformoterol Tartrate 15 mcg 06/14/21 10:00 06/16/21 07:39 Arformoterol 15 Mcg/2 Ml Nebu IH 15 mcg Q12HRT МАРИНА Administration Benztropine Mesylate 1 mg 06/14/21 10:00 06/16/21 10:39 Benztropine 1 Mg Tab PO 1 mg BID МАРИНА Administration Budesonide 0.5 mg 06/14/21 10:00 06/16/21 07:39 Budesonide 0.5 Mg/2 Ml Nebu IH 0.5 mg Q12HRT МАРИНА Administration Carvedilol 3.125 mg 06/14/21 10:00 06/16/21 10:40 Carvedilol 3.125 Mg Tab PO 3.125 mg BID МАРИНА Administration Docusate Sodium 100 mg 06/14/21 10:00 06/16/21 10:39 Docusate Sodium 100 Mg Cap PO 100 mg BID МАРИНА Administration Famotidine 10 mg 06/14/21 10:00 06/16/21 10:42 Famotidine 20 Mg/2 Ml Inj IV 10 mg BID МАРИНА Administration Ceftriaxone Sodium 1 gm in 50 mls @ 100 mls/hr 06/16/21 06:00 06/16/21 05:12 Rocephin/Ns 1 Gm/50 Ml IV 100 mls/hr Q24H МАРИНА Administration Protocol Metoclopramide HCl 10 mg 06/14/21 10:00 Metoclopramide 10 Mg/2 Ml Inj IV Q6H PRN Nausea And Vomiting Naloxone HCl 0.1 mg 06/14/21 10:00 Naloxone 0.4 Mg/1 Ml Inj IV Q2MIN PRN Res Rate </= 8 or 02 SAT < 92% Ondansetron HCl 4 mg 06/14/21 10:00 Ondansetron 4 Mg/2 Ml Inj IV Q4H PRN Nausea And Vomiting Oxycodone/Acetaminophen 1 tab 06/14/21 10:00 06/16/21 10:49 Oxycodone /Acetaminophen 5-325mg Tab PO 1 tab Q6H PRN Administration Pain, Moderate (4-6) Pravastatin Sodium 40 mg 06/14/21 22:00 06/15/21 21:13 Pravastatin 40 Mg Tab PO 40 mg QHS МАРИНА Administration Senna 8.6 mg 06/14/21 10:00 06/16/21 10:39 Sennosides 8.6 Mg Tab PO 8.6 mg Q12HR МАРИНА Administration Sertraline HCl 100 mg 06/14/21 10:00 06/16/21 10:42 Sertraline 100 Mg Tab PO 100 mg QDAY МАРИНА Administration Sodium Chloride 10 ml 06/14/21 10:00 06/16/21 10:44 Sodium Chloride 0.9% 10 Ml Flush Syringe IV 10 ml BID МАРИНА Administration Sodium Chloride 10 ml 06/14/21 10:00 Sodium Chloride 0.9% 10 Ml Flush Syringe IV PRN PRN LINE FLUSH
--- NOTE | 2021-06-16 19:00 | Electrocardiograph Report ---
[facility] Test Date: 2021-06-14 Test Time: 12:44:22 Pat Name: KATELYNN BALTAZAR Department: Room: A385 Gender: F Vice President Of Sales: ELBERT : 1945 Requested By: MICHAEL SLAUGHTER Order Number: [id number] Reading MD: Rivera Terry Measurements Intervals [place] Rate: 92 P: 48 OR: 168 QRS: 8 QRSD: 90 T: -9 QT: 370 QTc: 457 Interpretive Statements Sinus rhythm [id number] No previous ECG available for comparison Electronically Signed On 06-16-2021 18:59:37 EDT by Rivera Terry
[2021-06-16] MEDS: PRAVASTATIN 40 MG TAB PO SCH (22:22)
[2021-06-17] MEDS: cefTRIAXone/NS 1 GM/50 ML 1 GM/50 ML BAG IV SCH (05:45)
--- NOTE | 2021-06-17 07:15 | Progress Note ---
Assessment and Plan Assessment and plan: Assessment/Plan #Right subcapital fracture of the hip with superior displacement of distal fragment -#POD: 2 s/p R bipolar hip repair -PT evaluation: recommends HUNTER placement -continue eliquis for DVT PPx for 5 weeks total -PRN pain medication #Debility with recurrent falls -patient lives at home with family -will likely require rehabilitation post operatively, CM aware and started the referral process #Acute cystitis -UA consistent with infection -continue rocephin x 3 days #Community-acquired pneumonia with possible aspiration -CXR with bibasilar opacities sales representative jewelry of atelectases versus pneumonia -patient received empiric abx for CAP -patient without signs and symptoms suggestive of PNA; will not treat #Schizophrenia -stable, will continue home medications #Acute kidney injury likely secondary to vasomotor nephropathy-resolved #Volume depletion -SCr improved following IVFs -IVFs discontinue due to patient tolerating diet -Renal US shows medical renal disease with bilateral cysts -Nephrology consulted, assistance appreciated #Hypokalemia -likely 2/2 to HCTZ -will replete and monitor daily #Hypertension -will continue amlodipine and coreg -HCTZ held due to hypoK and SIERRA -likely exacerbated by pain from acute injury -goal SBP <160 while inpatient #COPD -stable, not in acute exacerbation -will continue home inhalers History Interval history: No acute events overnight. Patient denies at right hip. Pain is improved with as needed pain meds. She has no other complaints at this time. Hospitalist Physical - Physical exam Narrative exam: GENERAL: Well-developed well-nourished. In no acute distress. HEENT: Nasal cannula 2 L/min NECK: Supple. CHEST/LUNGS: CTAB on nasal cannula HEART/CARDIOVASCULAR: RRR. No murmur, rubs or gallops appreciated. ABDOMEN: +BS. NT/ND. SKIN: No rashes noted. NEURO: No focal motor deficit. Follows all commands. MUSCULOSKELETAL: No joint effusion. R hip with dressing intact. EXTREMITIES: No cyanosis, clubbing or edema. PSYCH: Flat affect. Cooperative. - Constitutional Vitals: Temp Pulse Resp BP Pulse Ox 99.5 F 90 20 144/65 100 06/17/21 04:32 06/17/21 04:32 06/17/21 04:32 06/17/21 04:32 06/17/21 07:10 Results - Labs CBC & Chem 7: 06/16/21 05:46 06/17/21 05:28 Labs: Laboratory Last Values WBC 5.2 K/mm3 (4.5-11.0) 06/16/21 05:46 RBC 2.59 M/mm3 (3.65-5.03) L 06/16/21 05:46 Hgb 8.7 gm/dl (10.1-14.3) L 06/16/21 05:46 Hct 25.0 % (30.3-42.9) L D 06/16/21 05:46 MCV 96 fl (79-97) 06/16/21 05:46 MCH 34 pg (28-32) H 06/16/21 05:46 MCHC 35 % (30-34) H 06/16/21 05:46 RDW 15.0 % (13.2-15.2) 06/16/21 05:46 Plt Count 96 K/mm3 (140-440) L 06/16/21 05:46 Lymph % (Auto) 14.6 % (13.4-35.0) 06/15/21 04:54 [place] % (Auto) 6.9 % (0.0-7.3) 06/15/21 04:54 Eos % (Auto) 1.7 % (0.0-4.3) 06/15/21 04:54 Baso % (Auto) 0.4 % (0.0-1.8) 06/15/21 04:54 Lymph # (Auto) 0.7 K/mm3 (1.2-5.4) L 06/15/21 04:54 [place] # (Auto) 0.4 K/mm3 (0.0-0.8) 06/15/21 04:54 Eos # (Auto) 0.1 K/mm3 (0.0-0.4) 06/15/21 04:54 Baso # (Auto) 0.0 K/mm3 (0.0-0.1) 06/15/21 04:54 Seg Neutrophils % 76.4 % (40.0-70.0) H 06/15/21 04:54 Seg Neutrophils # 3.9 K/mm3 (1.8-7.7) 06/15/21 04:54 PT 14.9 Sec. (12.2-14.9) 06/14/21 15:56 INR 1.05 (0.87-1.13) 06/14/21 15:56 APTT 38.4 Sec. (24.2-36.6) H 06/14/21 15:56 Sodium 136 mmol/L (137-145) L 06/16/21 05:46 Potassium 3.4 mmol/L (3.6-5.0) L 06/16/21 05:46 Chloride 101.4 mmol/L (98-107) 06/16/21 05:46 Carbon Dioxide 24 mmol/L (22-30) 06/16/21 05:46 Anion Gap 14 mmol/L 06/16/21 05:46 BUN 15 mg/dL (7-17) 06/16/21 05:46 Creatinine 0.8 mg/dL (0.6-1.2) 06/17/21 05:28 Estimated GFR > 60 ml/min 06/17/21 05:28 BUN/Creatinine Ratio 14 % 06/16/21 05:46 Glucose 126 mg/dL (65-100) H 06/16/21 05:46 Calcium 8.4 mg/dL (8.4-10.2) 06/16/21 05:46 Total Bilirubin 0.40 mg/dL (0.1-1.2) 06/15/21 04:54 AST 13 units/L (5-40) 06/15/21 04:54 ALT 8 units/L (7-56) 06/15/21 04:54 Alkaline Phosphatase 75 units/L (35-129) 06/15/21 04:54 Total Protein 6.9 g/dL (6.3-8.2) 06/15/21 04:54 Albumin 3.8 g/dL (3.9-5) L 06/15/21 04:54 Albumin/Globulin Ratio 1.2 % 06/15/21 04:54 Urine Color Yellow (Yellow) 06/15/21 04:20 Urine Turbidity Clear (Clear) 06/15/21 04:20 Urine pH 5.0 (5.0-7.0) 06/15/21 04:20 Ur Specific [place] 1.035 (1.003-1.030) H 06/15/21 04:20 Urine Protein <15 mg/dl mg/dL (Negative) 06/15/21 04:20 Urine Glucose (UA) Negative mg/dL (Negative) 06/15/21 04:20 Urine Ketones Negative mg/dL (Negative) 06/15/21 04:20 Urine Blood Negative (Negative) 06/15/21 04:20 Urine Nitrite Positive (Negative) 06/15/21 04:20 Ur Reducing Substances Not Reportable 06/15/21 04:20 Urine Bilirubin Negative (Negative) 06/15/21 04:20 Urine Ictotest Not Reportable 06/15/21 04:20 Urine Urobilinogen < 2.0 mg/dL (<2.0) 06/15/21 04:20 Ur Leukocyte Esterase Moderate (Negative) 06/15/21 04:20 Urine WBC (Auto) 26.0 /HPF (0.0-6.0) H 06/15/21 04:20 Urine RBC (Auto) 2.0 /HPF (0.0-6.0) 06/15/21 04:20 U Epithel Cells (Auto) < 1.0 /HPF (0-13.0) 06/15/21 04:20 Urine Bacteria (Auto) 1+ /HPF (Negative) 06/15/21 04:20 Urine Mucus Few /HPF 06/15/21 04:20 Urine Creatinine 102.7 mg/dL (0.1-20.0) H 06/15/21 04:20 Protein/Creatinin Ratio 0.20 06/15/21 04:20 Urine Sodium 58 mmol/L 06/15/21 04:20 Urine Total Protein 21 mg/dL (5-11.8) H 06/15/21 04:20 Microbiology: Microbiology 06/15/21 04:20 Urine,Clean Catch Urine Culture - Preliminary [place]/IV: Voiding Method External Female Catheter Active Medications - Current Medications Current Medications: Generic Name Dose Route Start Last Admin Trade Name Freq PRN Reason Stop Dose Admin Acetaminophen 650 mg 06/14/21 10:00 Acetaminophen 325 Mg Tab PO Q4H PRN Pain MILD(1-3)/Fever >100.5/SANTOS Albuterol 2.5 mg 06/14/21 10:00 Albuterol 2.5 Mg/3 Ml Nebu IH Q3HRT PRN Shortness Of Breath Amlodipine Besylate 10 mg 06/14/21 10:00 06/16/21 10:41 Amlodipine 10 Mg Tab PO 10 mg QDAY МАРИНА Administration Apixaban 2.5 mg 06/15/21 22:00 06/16/21 22:23 Apixaban 2.5 Mg Tab PO 2.5 mg Q12HR МАРИНА Administration Protocol Arformoterol Tartrate 15 mcg 06/14/21 10:00 06/16/21 20:44 Arformoterol 15 Mcg/2 Ml Nebu IH 15 mcg Q12HRT МАРИНА Administration Benztropine Mesylate 1 mg 06/14/21 10:00 06/16/21 22:22 Benztropine 1 Mg Tab PO 1 mg BID МАРИНА Administration Budesonide 0.5 mg 06/14/21 10:00 06/16/21 20:44 Budesonide 0.5 Mg/2 Ml Nebu IH 0.5 mg Q12HRT МАРИНА Administration Carvedilol 3.125 mg 06/14/21 10:00 06/16/21 22:23 Carvedilol 3.125 Mg Tab PO 3.125 mg BID МАРИНА Administration Docusate Sodium 100 mg 06/14/21 10:00 06/16/21 22:22 Docusate Sodium 100 Mg Cap PO 100 mg BID МАРИНА Administration Famotidine 10 mg 06/14/21 10:00 06/16/21 22:28 Famotidine 20 Mg/2 Ml Inj IV 10 mg BID МАРИНА Administration Ceftriaxone Sodium 1 gm in 50 mls @ 100 mls/hr 06/16/21 06:00 06/17/21 05:45 Rocephin/Ns 1 Gm/50 Ml IV 100 mls/hr Q24H МАРИНА Administration Protocol Metoclopramide HCl 10 mg 06/14/21 10:00 Metoclopramide 10 Mg/2 Ml Inj IV Q6H PRN Nausea And Vomiting Naloxone HCl 0.1 mg 06/14/21 10:00 Naloxone 0.4 Mg/1 Ml Inj IV Q2MIN PRN Res Rate </= 8 or 02 SAT < 92% Ondansetron HCl 4 mg 06/14/21 10:00 Ondansetron 4 Mg/2 Ml Inj IV Q4H PRN Nausea And Vomiting Oxycodone/Acetaminophen 1 tab 06/14/21 10:00 06/16/21 10:49 Oxycodone /Acetaminophen 5-325mg Tab PO 1 tab Q6H PRN Administration Pain, Moderate (4-6) Pravastatin Sodium 40 mg 06/14/21 22:00 06/16/21 22:22 Pravastatin 40 Mg Tab PO 40 mg QHS МАРИНА Administration Senna 8.6 mg 06/14/21 10:00 06/16/21 22:22 Sennosides 8.6 Mg Tab PO 8.6 mg Q12HR МАРИНА Administration Sertraline HCl 100 mg 06/14/21 10:00 06/16/21 10:42 Sertraline 100 Mg Tab PO 100 mg QDAY МАРИНА Administration Sodium Chloride 10 ml 06/14/21 10:00 06/16/21 22:25 Sodium Chloride 0.9% 10 Ml Flush Syringe IV 10 ml BID МАРИНА Administration Sodium Chloride 10 ml 06/14/21 10:00 Sodium Chloride 0.9% 10 Ml Flush Syringe IV PRN PRN LINE FLUSH
[2021-06-17] MEDS: SERTRALINE 100 MG TAB PO SCH (09:30)
[2021-06-17] MEDS: carvediloL 3.125 MG TAB PO SCH ×2 (09:30→21:58)
[2021-06-17] MEDS: DOCUSATE SODIUM 100 MG CAP PO SCH ×2 (09:30→21:52)
[2021-06-17] MEDS: BENZTROPINE 1 MG TAB PO SCH ×2 (09:30→21:52)
[2021-06-17] MEDS: SENNOSIDES 8.6 MG TAB PO SCH ×2 (09:30→21:52)
[2021-06-17] MEDS: APIXABAN 2.5 MG TAB PO SCH ×2 (09:30→21:54)
[2021-06-17] MEDS: amLODIPine 10 MG TAB PO SCH (09:30)
[2021-06-17] MEDS: FAMOTIDINE 20 MG/2 ML INJ IV SCH (09:30)
--- NOTE | 2021-06-17 09:43 | Progress Note ---
Assessment and Plan Impression: * Acute kidney injury vs underlying chronic kidney disease * Right subcapital fracture of the hip * Recurrent fall * Hypokalemia * Hypertension Plan: * Renal function improved, creatinine 0.8 * Replete KCl, note K 3.4 last, no K this AM * Ensure nutrition as able * UA c/w UTI - on Rocephin 1g IV daily * Continue Amlodipine 10mg daily; titrate Coreg if indicated * Replete lytes prn * AM labs ordered Subjective Date of service: 06/17/21 Interval history: Resting in bed, no acute changes noted Objective - Exam Narrative Exam: General appearance: well-developed, well-nourished EENT: ATNC Respiratory: Clear to Ascultation Heart: regular, S1S2 Gastrointestinal: Present: normal Integumentary: no rash, warm and dry Neurologic: no focal deficit, alert and oriented x3 Psychiatric: cooperative - Vital Signs Vital signs: Vital Signs - 12hr 06/16/21 06/16/21 06/17/21 21:55 22:23 01:00 Temperature 98.9 F Pulse Rate 89 89 Pulse Rate [ Anterior Bilateral Throughout] Pulse Rate [ Anterior Left Upper Lobe] Respiratory 18 Rate Respiratory Rate [Anterior Bilateral Throughout] Respiratory Rate [Anterior Left Upper Lobe ] Blood Pressure 139/64 139/64 O2 Sat by Pulse 95 95 Oximetry 06/17/21 06/17/21 06/17/21 04:32 07:10 07:50 Temperature 99.5 F Pulse Rate 90 Pulse Rate [ 91 H Anterior Bilateral Throughout] Pulse Rate [ 91 H Anterior Left Upper Lobe] Respiratory 20 Rate Respiratory 16 Rate [Anterior Bilateral Throughout] Respiratory 16 Rate [Anterior Left Upper Lobe ] Blood Pressure 144/65 O2 Sat by Pulse 93 100 95 Oximetry - Lab 06/16/21 05:46 06/17/21 05:28 Most recent lab results Calcium 8.4 mg/dL (8.4-10.2) 06/16/21 05:46 Urine Creatinine 102.7 mg/dL (0.1-20.0) H 06/15/21 04:20 Urine Sodium 58 mmol/L 06/15/21 04:20 Urine Total Protein 21 mg/dL (5-11.8) H 06/15/21 04:20 Medications & Allergies - Medications Allergies/Adverse Reactions: Allergies morphine Allergy (Verified 06/20/20 10:53) Rash NAUSEA Home Medications: Home Medications Medication Instructions Recorded Confirmed Last Taken Type Famotidine [Pepcid] 1 tab PO BID 04/17/18 06/15/21 06/13/21 History Haloperidol Decanoate [Haldol 150 mg IM QMONTH 04/17/18 06/15/21 2 Weeks Ago History Decanoate] ~06/01/21 Sertraline [Zoloft] 1 tab PO DAILY 04/17/18 06/15/21 06/13/21 History Aspirin EC [Halfprin EC] 81 mg PO QDAY 06/15/21 06/15/21 06/13/21 History Benztropine [Cogentin] 1 mg PO QHS 06/15/21 06/15/21 06/13/21 History Fluticasone [Flonase] 1 spray NS QDAY PRN 06/15/21 06/15/21 Unknown History Omeprazole 40 mg PO QDAY 06/15/21 06/15/21 06/13/21 History Pravastatin [Pravachol] 20 mg PO QHS 06/15/21 06/15/21 06/13/21 History amLODIPine [Norvasc] 10 mg PO DAILY 06/15/21 06/15/21 06/13/21 History carvediloL [Coreg] 3.125 mg PO BID 06/15/21 06/15/21 06/13/21 History hydroCHLOROthiazide 12.5 mg PO QDAY 06/15/21 06/15/21 06/13/21 History [Hydrochlorothiazide] Active Medications: Generic Name Dose Route Start Last Admin Trade Name Freq PRN Reason Stop Dose Admin Acetaminophen 650 mg 06/14/21 10:00 Acetaminophen 325 Mg Tab PO Q4H PRN Pain MILD(1-3)/Fever >100.5/SANTOS Albuterol 2.5 mg 06/14/21 10:00 Albuterol 2.5 Mg/3 Ml Nebu IH Q3HRT PRN Shortness Of Breath Amlodipine Besylate 10 mg 06/14/21 10:00 06/17/21 09:30 Amlodipine 10 Mg Tab PO 10 mg QDAY МАРИНА Administration Apixaban 2.5 mg 06/15/21 22:00 06/17/21 09:30 Apixaban 2.5 Mg Tab PO 2.5 mg Q12HR МАРИНА Administration Protocol Arformoterol Tartrate 15 mcg 06/14/21 10:00 06/16/21 20:44 Arformoterol 15 Mcg/2 Ml Nebu IH 15 mcg Q12HRT МАРИНА Administration Benztropine Mesylate 1 mg 06/14/21 10:00 06/17/21 09:30 Benztropine 1 Mg Tab PO 1 mg BID МАРИНА Administration Budesonide 0.5 mg 06/14/21 10:00 06/16/21 20:44 Budesonide 0.5 Mg/2 Ml Nebu IH 0.5 mg Q12HRT МАРИНА Administration Carvedilol 3.125 mg 06/14/21 10:00 06/17/21 09:30 Carvedilol 3.125 Mg Tab PO 3.125 mg BID МАРИНА Administration Docusate Sodium 100 mg 06/14/21 10:00 06/17/21 09:30 Docusate Sodium 100 Mg Cap PO 100 mg BID МАРИНА Administration Famotidine 10 mg 06/14/21 10:00 06/17/21 09:30 Famotidine 20 Mg/2 Ml Inj IV 10 mg BID МАРИНА Administration Ceftriaxone Sodium 1 gm in 50 mls @ 100 mls/hr 06/16/21 06:00 06/17/21 05:45 Rocephin/Ns 1 Gm/50 Ml IV 100 mls/hr Q24H МАРИНА Administration Protocol Metoclopramide HCl 10 mg 06/14/21 10:00 Metoclopramide 10 Mg/2 Ml Inj IV Q6H PRN Nausea And Vomiting Naloxone HCl 0.1 mg 06/14/21 10:00 Naloxone 0.4 Mg/1 Ml Inj IV Q2MIN PRN Res Rate </= 8 or 02 SAT < 92% Ondansetron HCl 4 mg 06/14/21 10:00 Ondansetron 4 Mg/2 Ml Inj IV Q4H PRN Nausea And Vomiting Oxycodone/Acetaminophen 1 tab 06/14/21 10:00 06/16/21 10:49 Oxycodone /Acetaminophen 5-325mg Tab PO 1 tab Q6H PRN Administration Pain, Moderate (4-6) Pravastatin Sodium 40 mg 06/14/21 22:00 06/16/21 22:22 Pravastatin 40 Mg Tab PO 40 mg QHS МАРИНА Administration Senna 8.6 mg 06/14/21 10:00 06/17/21 09:30 Sennosides 8.6 Mg Tab PO 8.6 mg Q12HR МАРИНА Administration Sertraline HCl 100 mg 06/14/21 10:00 06/17/21 09:30 Sertraline 100 Mg Tab PO 100 mg QDAY МАРИНА Administration Sodium Chloride 10 ml 06/14/21 10:00 06/17/21 09:31 Sodium Chloride 0.9% 10 Ml Flush Syringe IV 10 ml BID МАРИНА Administration Sodium Chloride 10 ml 06/14/21 10:00 Sodium Chloride 0.9% 10 Ml Flush Syringe IV PRN PRN LINE FLUSH
[2021-06-17] MEDS ORDERED: FAMOTIDINE 10 MG TAB PO SCH (10:00)
[2021-06-17] MEDS: oxyCODONE /ACETAMINOPHEN 5-325MG TAB PO PRN (11:25)
[2021-06-17] MEDS: ARFORMOTEROL 15 MCG/2 ML NEBU IH SCH ×2 (19:32→20:23)
[2021-06-17] MEDS: BUDESONIDE 0.5 MG/2 ML NEBU IH SCH ×2 (19:32→20:23)
[2021-06-17] MEDS: FAMOTIDINE 10 MG TAB PO SCH (21:52)
[2021-06-17] MEDS: PRAVASTATIN 40 MG TAB PO SCH (21:54)
[2021-06-18] MEDS: cefTRIAXone/NS 1 GM/50 ML 1 GM/50 ML BAG IV SCH (05:27)
[2021-06-18 05:53] LABS: Hemoglobin 7.8 gm/dl (10.1-14.3); Mean Corpuscular HGB Conc 34 % (30-34); Mean Corpuscular Volume 95 fl (79-97); Platelet Count 113 K/mm3 (140-440); Red Blood Count 2.41 M/mm3 (3.65-5.03); Red Cell Distribution Width 14.5 % (13.2-15.2)
[2021-06-18 06:13] LABS: BUN/Creatinine Ratio 13; Blood Urea Nitrogen 9 mg/dL (7-17); Calcium 8.6 mg/dL (8.4-10.2); Hemolysis Index 1
--- NOTE | 2021-06-18 08:16 | Progress Note ---
Assessment and Plan Assessment and plan: Assessment/Plan #Right subcapital fracture of the hip with superior displacement of distal fragment -#POD: 3 s/p R bipolar hip repair -PT evaluation: recommends HUNTER placement -continue eliquis for DVT PPx for 5 weeks total -PRN pain medication #Debility with recurrent falls -patient lives at home with family -will likely require rehabilitation post operatively, CM aware and started the referral process #Acute cystitis -UA consistent with infection -s/p rocephin x 3 days #Community-acquired pneumonia with possible aspiration -CXR with bibasilar opacities sales representative door to door of atelectases versus pneumonia -patient received empiric abx for CAP -patient without signs and symptoms suggestive of PNA; will not treat #Schizophrenia -stable, will continue home medications #Acute kidney injury likely secondary to vasomotor nephropathy-resolved #Volume depletion-resolved -SCr improved following IVFs -IVFs discontinue due to patient tolerating diet -Renal US shows medical renal disease with bilateral cysts -Nephrology consulted, assistance appreciated #Hypokalemia -likely 2/2 to HCTZ -will replete and monitor daily #Hypertension -will continue amlodipine and coreg -HCTZ held due to hypoK and SIERRA -likely exacerbated by pain from acute injury -goal SBP <160 while inpatient #COPD -stable, not in acute exacerbation -will continue home inhalers History Interval history: No acute events overnight. Patient continues to have right hip pain, currently pain is controlled with PRN medications. She has no other complaints at this time. Hospitalist Physical - Physical exam Narrative exam: GENERAL: Well-developed well-nourished. In no acute distress. HEENT: Nasal cannula 2 L/min NECK: Supple. CHEST/LUNGS: CTAB on nasal cannula HEART/CARDIOVASCULAR: RRR. No murmur, rubs or gallops appreciated. ABDOMEN: +BS. NT/ND. SKIN: No rashes noted. NEURO: No focal motor deficit. Follows all commands. MUSCULOSKELETAL: No joint effusion. R hip with dressing intact. EXTREMITIES: No cyanosis, clubbing or edema. PSYCH: Flat affect. Cooperative. - Constitutional Vitals: Temp Pulse Resp BP Pulse Ox 99.4 F 92 H 18 116/53 98 06/17/21 20:16 06/17/21 21:58 06/17/21 20:25 06/17/21 21:58 06/18/21 07:00 Results - Labs CBC & Chem 7: 06/18/21 04:53 06/18/21 04:53 Labs: Laboratory Last Values WBC 6.3 K/mm3 (4.5-11.0) 06/18/21 04:53 RBC 2.41 M/mm3 (3.65-5.03) L 06/18/21 04:53 Hgb 7.8 gm/dl (10.1-14.3) L 06/18/21 04:53 Hct 23.0 % (30.3-42.9) L 06/18/21 04:53 MCV 95 fl (79-97) 06/18/21 04:53 MCH 32 pg (28-32) 06/18/21 04:53 MCHC 34 % (30-34) 06/18/21 04:53 RDW 14.5 % (13.2-15.2) 06/18/21 04:53 Plt Count 113 K/mm3 (140-440) L 06/18/21 04:53 Lymph % (Auto) 14.6 % (13.4-35.0) 06/15/21 04:54 [place]ady % (Auto) 6.9 % (0.0-7.3) 06/15/21 04:54 Eos % (Auto) 1.7 % (0.0-4.3) 06/15/21 04:54 Baso % (Auto) 0.4 % (0.0-1.8) 06/15/21 04:54 Lymph # (Auto) 0.7 K/mm3 (1.2-5.4) L 06/15/21 04:54 Grady # (Auto) 0.4 K/mm3 (0.0-0.8) 06/15/21 04:54 Eos # (Auto) 0.1 K/mm3 (0.0-0.4) 06/15/21 04:54 Baso # (Auto) 0.0 K/mm3 (0.0-0.1) 06/15/21 04:54 Seg Neutrophils % 76.4 % (40.0-70.0) H 06/15/21 04:54 Seg Neutrophils # 3.9 K/mm3 (1.8-7.7) 06/15/21 04:54 PT 14.9 Sec. (12.2-14.9) 06/14/21 15:56 INR 1.05 (0.87-1.13) 06/14/21 15:56 APTT 38.4 Sec. (24.2-36.6) H 06/14/21 15:56 Sodium 138 mmol/L (137-145) 06/18/21 04:53 Potassium 3.3 mmol/L (3.6-5.0) L 06/18/21 04:53 Chloride 101.1 mmol/L (98-107) 06/18/21 04:53 Carbon Dioxide 25 mmol/L (22-30) 06/18/21 04:53 Anion Gap 15 mmol/L 06/18/21 04:53 BUN 9 mg/dL (7-17) 06/18/21 04:53 Creatinine 0.7 mg/dL (0.6-1.2) 06/18/21 04:53 Estimated GFR > 60 ml/min 06/18/21 04:53 BUN/Creatinine Ratio 13 % 06/18/21 04:53 Glucose 105 mg/dL (65-100) H 06/18/21 04:53 Calcium 8.6 mg/dL (8.4-10.2) 06/18/21 04:53 Total Bilirubin 0.40 mg/dL (0.1-1.2) 06/15/21 04:54 AST 13 units/L (5-40) 06/15/21 04:54 ALT 8 units/L (7-56) 06/15/21 04:54 Alkaline Phosphatase 75 units/L (35-129) 06/15/21 04:54 Total Protein 6.9 g/dL (6.3-8.2) 06/15/21 04:54 Albumin 3.8 g/dL (3.9-5) L 06/15/21 04:54 Albumin/Globulin Ratio 1.2 % 06/15/21 04:54 Urine Color Yellow (Yellow) 06/15/21 04:20 Urine Turbidity Clear (Clear) 06/15/21 04:20 Urine pH 5.0 (5.0-7.0) 06/15/21 04:20 Ur Specific [place] 1.035 (1.003-1.030) H 06/15/21 04:20 Urine Protein <15 mg/dl mg/dL (Negative) 06/15/21 04:20 Urine Glucose (UA) Negative mg/dL (Negative) 06/15/21 04:20 Urine Ketones Negative mg/dL (Negative) 06/15/21 04:20 Urine Blood Negative (Negative) 06/15/21 04:20 Urine Nitrite Positive (Negative) 06/15/21 04:20 Ur Reducing Substances Not Reportable 06/15/21 04:20 Urine Bilirubin Negative (Negative) 06/15/21 04:20 Urine Ictotest Not Reportable 06/15/21 04:20 Urine Urobilinogen < 2.0 mg/dL (<2.0) 06/15/21 04:20 Ur Leukocyte Esterase Moderate (Negative) 06/15/21 04:20 Urine WBC (Auto) 26.0 /HPF (0.0-6.0) H 06/15/21 04:20 Urine RBC (Auto) 2.0 /HPF (0.0-6.0) 06/15/21 04:20 U Epithel Cells (Auto) < 1.0 /HPF (0-13.0) 06/15/21 04:20 Urine Bacteria (Auto) 1+ /HPF (Negative) 06/15/21 04:20 Urine Mucus Few /HPF 06/15/21 04:20 Urine Creatinine 102.7 mg/dL (0.1-20.0) H 06/15/21 04:20 Protein/Creatinin Ratio 0.20 06/15/21 04:20 Urine Sodium 58 mmol/L 06/15/21 04:20 Urine Total Protein 21 mg/dL (5-11.8) H 06/15/21 04:20 Microbiology: Microbiology 06/15/21 04:20 Urine,Clean Catch Urine Culture - Final Frye/IV: Voiding Method External Female Catheter Active Medications - Current Medications Current Medications: Generic Name Dose Route Start Last Admin Trade Name Freq PRN Reason Stop Dose Admin Acetaminophen 650 mg 06/14/21 10:00 Acetaminophen 325 Mg Tab PO Q4H PRN Pain MILD(1-3)/Fever >100.5/SANTOS Albuterol 2.5 mg 06/14/21 10:00 Albuterol 2.5 Mg/3 Ml Nebu IH Q3HRT PRN Shortness Of Breath Amlodipine Besylate 10 mg 06/14/21 10:00 06/17/21 09:30 Amlodipine 10 Mg Tab PO 10 mg QDAY МАРИНА Administration Apixaban 2.5 mg 06/15/21 22:00 06/17/21 21:54 Apixaban 2.5 Mg Tab PO 2.5 mg Q12HR МАРИНА Administration Protocol Arformoterol Tartrate 15 mcg 06/14/21 10:00 06/17/21 20:23 Arformoterol 15 Mcg/2 Ml Nebu IH 15 mcg Q12HRT МАРИНА Administration Benztropine Mesylate 1 mg 06/14/21 10:00 06/17/21 21:52 Benztropine 1 Mg Tab PO 1 mg BID МАРИНА Administration Budesonide 0.5 mg 06/14/21 10:00 06/17/21 20:23 Budesonide 0.5 Mg/2 Ml Nebu IH 0.5 mg Q12HRT МАРИНА Administration Carvedilol 3.125 mg 06/14/21 10:00 06/17/21 21:58 Carvedilol 3.125 Mg Tab PO Not Given BID МАРИНА Docusate Sodium 100 mg 06/14/21 10:00 06/17/21 21:52 Docusate Sodium 100 Mg Cap PO 100 mg BID МАРИНА Administration Famotidine 10 mg 06/17/21 22:00 06/17/21 21:52 Famotidine 10 Mg Tab PO 10 mg BID МАРИНА Administration Ceftriaxone Sodium 1 gm in 50 mls @ 100 mls/hr 06/16/21 06:00 06/18/21 05:27 Rocephin/Ns 1 Gm/50 Ml IV 100 mls/hr Q24H МАРИНА Administration Protocol Metoclopramide HCl 10 mg 06/14/21 10:00 Metoclopramide 10 Mg/2 Ml Inj IV Q6H PRN Nausea And Vomiting Naloxone HCl 0.1 mg 06/14/21 10:00 Naloxone 0.4 Mg/1 Ml Inj IV Q2MIN PRN Res Rate </= 8 or 02 SAT < 92% Ondansetron HCl 4 mg 06/14/21 10:00 Ondansetron 4 Mg/2 Ml Inj IV Q4H PRN Nausea And Vomiting Oxycodone/Acetaminophen 1 tab 06/14/21 10:00 06/17/21 11:25 Oxycodone /Acetaminophen 5-325mg Tab PO 1 tab Q6H PRN Administration Pain, Moderate (4-6) Pravastatin Sodium 40 mg 06/14/21 22:00 06/17/21 21:54 Pravastatin 40 Mg Tab PO 40 mg QHS МАРИНА Administration Senna 8.6 mg 06/14/21 10:00 06/17/21 21:52 Sennosides 8.6 Mg Tab PO 8.6 mg Q12HR МАРИНА Administration Sertraline HCl 100 mg 06/14/21 10:00 06/17/21 09:30 Sertraline 100 Mg Tab PO 100 mg QDAY МАРИНА Administration Sodium Chloride 10 ml 06/14/21 10:00 06/17/21 22:01 Sodium Chloride 0.9% 10 Ml Flush Syringe IV 10 ml BID МАРИНА Administration Sodium Chloride 10 ml 06/14/21 10:00 Sodium Chloride 0.9% 10 Ml Flush Syringe IV PRN PRN LINE FLUSH
[2021-06-18] MEDS: BUDESONIDE 0.5 MG/2 ML NEBU IH SCH ×2 (08:27→20:09)
[2021-06-18] MEDS: ARFORMOTEROL 15 MCG/2 ML NEBU IH SCH ×2 (08:27→20:09)
[2021-06-18] MEDS ORDERED: POTASSIUM CHLORIDE ER 20 MEQ TAB PO SCH (09:00)
[2021-06-18] MEDS: BENZTROPINE 1 MG TAB PO SCH ×2 (09:08→21:44)
[2021-06-18] MEDS: carvediloL 3.125 MG TAB PO SCH ×4 (09:08→22:18)
[2021-06-18] MEDS: amLODIPine 10 MG TAB PO SCH (09:08)
[2021-06-18] MEDS: DOCUSATE SODIUM 100 MG CAP PO SCH ×2 (09:08→21:39)
[2021-06-18] MEDS: SERTRALINE 100 MG TAB PO SCH (09:08)
[2021-06-18] MEDS: SENNOSIDES 8.6 MG TAB PO SCH ×2 (09:08→21:40)
[2021-06-18] MEDS: FAMOTIDINE 10 MG TAB PO SCH ×2 (09:08→21:39)
[2021-06-18] MEDS: APIXABAN 2.5 MG TAB PO SCH ×2 (09:09→21:42)
[2021-06-18] MEDS ORDERED: carvediloL 3.125 MG TAB PO SCH (11:00)
--- NOTE | 2021-06-18 15:38 | Progress Note ---
Assessment and Plan Impression: * Acute kidney injury vs underlying chronic kidney disease * Right subcapital fracture of the hip * Recurrent fall * Hypokalemia * Hypertension Plan: * Renal function improved, creatinine 0.8 * Replete KCl, note K 3.3, suspect nutrition related? * Check magnesium * Ensure nutrition as able * UA c/w UTI - on Rocephin 1g IV daily * Continue Amlodipine 10mg daily; titrate Coreg if indicated * If K remains low, will check urine K/creatinine ratio, may benefit from HUI/ARB vs MRA vs amiloride if having K wasting but will need to titrate of BP meds to avoid hypotension, dehydration * Replete lytes prn * AM labs ordered Subjective Date of service: 06/18/21 Interval history: Resting in bed, no acute changes noted Objective - Exam Narrative Exam: General appearance: well-developed, well-nourished EENT: ATNC Respiratory: Clear to Ascultation Heart: regular, S1S2 Gastrointestinal: Present: normal Integumentary: no rash, warm and dry Neurologic: no focal deficit, alert and oriented x3 Psychiatric: cooperative - Vital Signs Vital signs: Vital Signs - 12hr 06/18/21 06/18/21 07:00 08:28 Pulse Rate [ 102 H Anterior Bilateral Throughout] Pulse Rate [ 102 H Anterior Left Upper Lobe] Pulse Rate [ 140 H Bilateral Throughout] Respiratory 14 Rate [Anterior Bilateral Throughout] Respiratory 14 Rate [Anterior Left Upper Lobe ] Respiratory 14 Rate [Bilateral Throughout] O2 Sat by Pulse 98 97 Oximetry - Lab 06/18/21 04:53 06/18/21 04:53 Most recent lab results Calcium 8.6 mg/dL (8.4-10.2) 06/18/21 04:53 Urine Creatinine 102.7 mg/dL (0.1-20.0) H 06/15/21 04:20 Urine Sodium 58 mmol/L 06/15/21 04:20 Urine Total Protein 21 mg/dL (5-11.8) H 06/15/21 04:20 Medications & Allergies - Medications Allergies/Adverse Reactions: Allergies morphine Allergy (Verified 06/20/20 10:53) Rash NAUSEA Home Medications: Home Medications Medication Instructions Recorded Confirmed Last Taken Type Famotidine [Pepcid] 1 tab PO BID 04/17/18 06/15/21 06/13/21 History Haloperidol Decanoate [Haldol 150 mg IM QMONTH 04/17/18 06/15/21 2 Weeks Ago History Decanoate] ~06/01/21 Sertraline [Zoloft] 1 tab PO DAILY 04/17/18 06/15/21 06/13/21 History Aspirin EC [Halfprin EC] 81 mg PO QDAY 06/15/21 06/15/21 06/13/21 History Benztropine [Cogentin] 1 mg PO QHS 06/15/21 06/15/21 06/13/21 History Fluticasone [Flonase] 1 spray NS QDAY PRN 06/15/21 06/15/21 Unknown History Omeprazole 40 mg PO QDAY 06/15/21 06/15/21 06/13/21 History Pravastatin [Pravachol] 20 mg PO QHS 06/15/21 06/15/21 06/13/21 History amLODIPine [Norvasc] 10 mg PO DAILY 06/15/21 06/15/21 06/13/21 History carvediloL [Coreg] 3.125 mg PO BID 06/15/21 06/15/21 06/13/21 History hydroCHLOROthiazide 12.5 mg PO QDAY 06/15/21 06/15/21 06/13/21 History [Hydrochlorothiazide] Active Medications: Generic Name Dose Route Start Last Admin Trade Name Freq PRN Reason Stop Dose Admin Acetaminophen 650 mg 06/14/21 10:00 Acetaminophen 325 Mg Tab PO Q4H PRN Pain MILD(1-3)/Fever >100.5/SANTOS Albuterol 2.5 mg 06/14/21 10:00 Albuterol 2.5 Mg/3 Ml Nebu IH Q3HRT PRN Shortness Of Breath Amlodipine Besylate 10 mg 06/14/21 10:00 06/18/21 09:08 Amlodipine 10 Mg Tab PO 10 mg QDAY МАРИНА Administration Apixaban 2.5 mg 06/15/21 22:00 06/18/21 09:09 Apixaban 2.5 Mg Tab PO 2.5 mg Q12HR МАРИНА Administration Protocol Arformoterol Tartrate 15 mcg 06/14/21 10:00 06/18/21 08:27 Arformoterol 15 Mcg/2 Ml Nebu IH 15 mcg Q12HRT МАРИНА Administration Benztropine Mesylate 1 mg 06/14/21 10:00 06/18/21 09:08 Benztropine 1 Mg Tab PO 1 mg BID МАРИНА Administration Budesonide 0.5 mg 06/14/21 10:00 06/18/21 08:27 Budesonide 0.5 Mg/2 Ml Nebu IH 0.5 mg Q12HRT МАРИНА Administration Carvedilol 6.25 mg 06/18/21 22:00 Carvedilol 3.125 Mg Tab PO BID МАРИНА Docusate Sodium 100 mg 06/14/21 10:00 06/18/21 09:08 Docusate Sodium 100 Mg Cap PO 100 mg BID МАРИНА Administration Famotidine 10 mg 06/17/21 22:00 06/18/21 09:08 Famotidine 10 Mg Tab PO 10 mg BID МАРИНА Administration Metoclopramide HCl 10 mg 06/14/21 10:00 Metoclopramide 10 Mg/2 Ml Inj IV Q6H PRN Nausea And Vomiting Naloxone HCl 0.1 mg 06/14/21 10:00 Naloxone 0.4 Mg/1 Ml Inj IV Q2MIN PRN Res Rate </= 8 or 02 SAT < 92% Ondansetron HCl 4 mg 06/14/21 10:00 Ondansetron 4 Mg/2 Ml Inj IV Q4H PRN Nausea And Vomiting Oxycodone/Acetaminophen 1 tab 06/14/21 10:00 06/17/21 11:25 Oxycodone /Acetaminophen 5-325mg Tab PO 1 tab Q6H PRN Administration Pain, Moderate (4-6) Pravastatin Sodium 40 mg 06/14/21 22:00 06/17/21 21:54 Pravastatin 40 Mg Tab PO 40 mg QHS МАРИНА Administration Senna 8.6 mg 06/14/21 10:00 06/18/21 09:08 Sennosides 8.6 Mg Tab PO 8.6 mg Q12HR МАРИНА Administration Sertraline HCl 100 mg 06/14/21 10:00 06/18/21 09:08 Sertraline 100 Mg Tab PO 100 mg QDAY МАРИНА Administration Sodium Chloride 10 ml 06/14/21 10:00 06/18/21 09:08 Sodium Chloride 0.9% 10 Ml Flush Syringe IV 10 ml BID МАРИНА Administration Sodium Chloride 10 ml 06/14/21 10:00 Sodium Chloride 0.9% 10 Ml Flush Syringe IV PRN PRN LINE FLUSH
[2021-06-18] MEDS: ACETAMINOPHEN 325 MG TAB PO PRN ×3 (21:35→21:43)
[2021-06-18] MEDS: PRAVASTATIN 40 MG TAB PO SCH (21:39)
[2021-06-19 01:13] LABS: Blood Urea Nitrogen 13 mg/dL (7-17); Calcium 8.7 mg/dL (8.4-10.2); Hemolysis Index 0
[2021-06-19 01:18] LABS: BUN/Creatinine Ratio 19
[2021-06-19] MEDS: ACETAMINOPHEN 325 MG TAB PO PRN (05:38)
--- NOTE | 2021-06-19 07:31 | Progress Note ---
Assessment and Plan Assessment and plan: Assessment/Plan #Right subcapital fracture of the hip with superior displacement of distal fragment -#POD: 4 s/p R bipolar hip repair -PT evaluation: recommends HUNTER placement -continue eliquis for DVT PPx for 5 weeks total -PRN pain medication #Debility with recurrent falls -patient lives at home with family -will likely require rehabilitation post operatively, CM aware and started the referral process #SIRS -TMax 101.1, tachycardia -patient treated for cystitis, no other source of infection at this time -BCx and CXR ordered #Acute cystitis -UA consistent with infection -s/p rocephin x 3 days #Community-acquired pneumonia with possible aspiration -CXR with bibasilar 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 -patient received empiric abx for CAP -patient without signs and symptoms suggestive of PNA; will not treat #Schizophrenia -stable, will continue home medications #Acute kidney injury likely secondary to vasomotor nephropathy-resolved #Volume depletion-resolved -SCr improved following IVFs -IVFs discontinue due to patient tolerating diet -Renal US shows medical renal disease with bilateral cysts -Nephrology consulted, assistance appreciated #Hypokalemia -likely 2/2 to HCTZ -will replete and monitor daily -will start KCl tabs 10Meq daily #Hypertension -will continue amlodipine and coreg -HCTZ held due to hypoK and SIERRA -likely exacerbated by pain from acute injury -goal SBP <160 while inpatient #COPD -stable, not in acute exacerbation -will continue home inhalers History Interval history: No acute events overnight. Patient continues to have right hip pain, currently pain is controlled with PRN medications. She has no other complaints at this time. Hospitalist Physical - Physical exam Narrative exam: GENERAL: Well-developed well-nourished. In no acute distress. HEENT: Nasal cannula 2 L/min NECK: Supple. CHEST/LUNGS: CTAB on nasal cannula HEART/CARDIOVASCULAR: RRR. No murmur, rubs or gallops appreciated. ABDOMEN: +BS. NT/ND. SKIN: No rashes noted. NEURO: No focal motor deficit. Follows all commands. MUSCULOSKELETAL: No joint effusion. R hip with dressing intact. EXTREMITIES: No cyanosis, clubbing or edema. PSYCH: Flat affect. Cooperative. - Constitutional Vitals: Temp Pulse Resp BP Pulse Ox 98.3 F 93 H 20 124/59 96 06/19/21 06:54 06/19/21 04:11 06/19/21 04:11 06/19/21 04:11 06/19/21 06:58 Results - Labs CBC & Chem 7: 06/18/21 04:53 06/19/21 07:11 Labs: Laboratory Last Values WBC 6.3 K/mm3 (4.5-11.0) 06/18/21 04:53 RBC 2.41 M/mm3 (3.65-5.03) L 06/18/21 04:53 Hgb 7.8 gm/dl (10.1-14.3) L 06/18/21 04:53 Hct 23.0 % (30.3-42.9) L 06/18/21 04:53 MCV 95 fl (79-97) 06/18/21 04:53 MCH 32 pg (28-32) 06/18/21 04:53 MCHC 34 % (30-34) 06/18/21 04:53 RDW 14.5 % (13.2-15.2) 06/18/21 04:53 Plt Count 113 K/mm3 (140-440) L 06/18/21 04:53 Lymph % (Auto) 14.6 % (13.4-35.0) 06/15/21 04:54 [place] % (Auto) 6.9 % (0.0-7.3) 06/15/21 04:54 Eos % (Auto) 1.7 % (0.0-4.3) 06/15/21 04:54 Baso % (Auto) 0.4 % (0.0-1.8) 06/15/21 04:54 Lymph # (Auto) 0.7 K/mm3 (1.2-5.4) L 06/15/21 04:54 Nash # (Auto) 0.4 K/mm3 (0.0-0.8) 06/15/21 04:54 Eos # (Auto) 0.1 K/mm3 (0.0-0.4) 06/15/21 04:54 Baso # (Auto) 0.0 K/mm3 (0.0-0.1) 06/15/21 04:54 Seg Neutrophils % 76.4 % (40.0-70.0) H 06/15/21 04:54 Seg Neutrophils # 3.9 K/mm3 (1.8-7.7) 06/15/21 04:54 PT 14.9 Sec. (12.2-14.9) 06/14/21 15:56 INR 1.05 (0.87-1.13) 06/14/21 15:56 APTT 38.4 Sec. (24.2-36.6) H 06/14/21 15:56 Sodium 134 mmol/L (137-145) L 06/19/21 00:40 Potassium 3.6 mmol/L (3.6-5.0) 06/19/21 00:40 Chloride 97.4 mmol/L (98-107) L 06/19/21 00:40 Carbon Dioxide 27 mmol/L (22-30) 06/19/21 00:40 Anion Gap 13 mmol/L 06/19/21 00:40 BUN 13 mg/dL (7-17) 06/19/21 00:40 Creatinine 0.7 mg/dL (0.6-1.2) 06/19/21 00:40 Estimated GFR > 60 ml/min 06/19/21 00:40 BUN/Creatinine Ratio 19 % 06/19/21 00:40 Glucose 125 mg/dL (65-100) H 06/19/21 00:40 Calcium 8.7 mg/dL (8.4-10.2) 06/19/21 00:40 Magnesium 2.00 mg/dL (1.7-2.3) 06/19/21 00:40 Total Bilirubin 0.40 mg/dL (0.1-1.2) 06/15/21 04:54 AST 13 units/L (5-40) 06/15/21 04:54 ALT 8 units/L (7-56) 06/15/21 04:54 Alkaline Phosphatase 75 units/L (35-129) 06/15/21 04:54 Total Protein 6.9 g/dL (6.3-8.2) 06/15/21 04:54 Albumin 3.8 g/dL (3.9-5) L 06/15/21 04:54 Albumin/Globulin Ratio 1.2 % 06/15/21 04:54 Urine Color Yellow (Yellow) 06/15/21 04:20 Urine Turbidity Clear (Clear) 06/15/21 04:20 Urine pH 5.0 (5.0-7.0) 06/15/21 04:20 Ur Specific [place] 1.035 (1.003-1.030) H 06/15/21 04:20 Urine Protein <15 mg/dl mg/dL (Negative) 06/15/21 04:20 Urine Glucose (UA) Negative mg/dL (Negative) 06/15/21 04:20 Urine Ketones Negative mg/dL (Negative) 06/15/21 04:20 Urine Blood Negative (Negative) 06/15/21 04:20 Urine Nitrite Positive (Negative) 06/15/21 04:20 Ur Reducing Substances Not Reportable 06/15/21 04:20 Urine Bilirubin Negative (Negative) 06/15/21 04:20 Urine Ictotest Not Reportable 06/15/21 04:20 Urine Urobilinogen < 2.0 mg/dL (<2.0) 06/15/21 04:20 Ur Leukocyte Esterase Moderate (Negative) 06/15/21 04:20 Urine WBC (Auto) 26.0 /HPF (0.0-6.0) H 06/15/21 04:20 Urine RBC (Auto) 2.0 /HPF (0.0-6.0) 06/15/21 04:20 U Epithel Cells (Auto) < 1.0 /HPF (0-13.0) 06/15/21 04:20 Urine Bacteria (Auto) 1+ /HPF (Negative) 06/15/21 04:20 Urine Mucus Few /HPF 06/15/21 04:20 Urine Creatinine 102.7 mg/dL (0.1-20.0) H 06/15/21 04:20 Protein/Creatinin Ratio 0.20 06/15/21 04:20 Urine Sodium 58 mmol/L 06/15/21 04:20 Urine Total Protein 21 mg/dL (5-11.8) H 06/15/21 04:20 Frye/IV: Voiding Method External Female Catheter Active Medications - Current Medications Current Medications: Generic Name Dose Route Start Last Admin Trade Name Freq PRN Reason Stop Dose Admin Acetaminophen 650 mg 06/14/21 10:00 06/19/21 05:38 Acetaminophen 325 Mg Tab PO 650 mg Q4H PRN Administration Pain MILD(1-3)/Fever >100.5/SANTOS Albuterol 2.5 mg 06/14/21 10:00 Albuterol 2.5 Mg/3 Ml Nebu IH Q3HRT PRN Shortness Of Breath Amlodipine Besylate 10 mg 06/14/21 10:00 06/18/21 09:08 Amlodipine 10 Mg Tab PO 10 mg QDAY МАРИНА Administration Apixaban 2.5 mg 06/15/21 22:00 06/18/21 21:42 Apixaban 2.5 Mg Tab PO 2.5 mg Q12HR МАРИНА Administration Protocol Arformoterol Tartrate 15 mcg 06/14/21 10:00 06/18/21 20:09 Arformoterol 15 Mcg/2 Ml Nebu IH 15 mcg Q12HRT МАРИНА Administration Benztropine Mesylate 1 mg 06/14/21 10:00 06/18/21 21:44 Benztropine 1 Mg Tab PO 1 mg BID МАРИНА Administration Budesonide 0.5 mg 06/14/21 10:00 06/18/21 20:09 Budesonide 0.5 Mg/2 Ml Nebu IH 0.5 mg Q12HRT МАРИНА Administration Carvedilol 6.25 mg 06/18/21 22:00 06/18/21 22:18 Carvedilol 3.125 Mg Tab PO 6.25 mg BID МАРИНА Administration Docusate Sodium 100 mg 06/14/21 10:00 06/18/21 21:39 Docusate Sodium 100 Mg Cap PO 100 mg BID МАРИНА Administration Famotidine 10 mg 06/17/21 22:00 06/18/21 21:39 Famotidine 10 Mg Tab PO 10 mg BID МАРИНА Administration Metoclopramide HCl 10 mg 06/14/21 10:00 Metoclopramide 10 Mg/2 Ml Inj IV Q6H PRN Nausea And Vomiting Naloxone HCl 0.1 mg 06/14/21 10:00 Naloxone 0.4 Mg/1 Ml Inj IV Q2MIN PRN Res Rate </= 8 or 02 SAT < 92% Ondansetron HCl 4 mg 06/14/21 10:00 Ondansetron 4 Mg/2 Ml Inj IV Q4H PRN Nausea And Vomiting Oxycodone/Acetaminophen 1 tab 06/14/21 10:00 06/17/21 11:25 Oxycodone /Acetaminophen 5-325mg Tab PO 1 tab Q6H PRN Administration Pain, Moderate (4-6) Pravastatin Sodium 40 mg 06/14/21 22:00 06/18/21 21:39 Pravastatin 40 Mg Tab PO 40 mg QHS МАРИНА Administration Senna 8.6 mg 06/14/21 10:00 06/18/21 21:40 Sennosides 8.6 Mg Tab PO 8.6 mg Q12HR МАРИНА Administration Sertraline HCl 100 mg 06/14/21 10:00 06/18/21 09:08 Sertraline 100 Mg Tab PO 100 mg QDAY МАРИНА Administration Sodium Chloride 10 ml 06/14/21 10:00 06/18/21 21:45 Sodium Chloride 0.9% 10 Ml Flush Syringe IV 10 ml BID МАРИНА Administration Sodium Chloride 10 ml 06/14/21 10:00 Sodium Chloride 0.9% 10 Ml Flush Syringe IV PRN PRN LINE FLUSH
[2021-06-19] MEDS: DOCUSATE SODIUM 100 MG CAP PO SCH ×2 (09:02→21:29)
[2021-06-19] MEDS: APIXABAN 2.5 MG TAB PO SCH ×2 (09:02→21:29)
[2021-06-19] MEDS: FAMOTIDINE 10 MG TAB PO SCH ×2 (09:02→21:29)
[2021-06-19] MEDS: carvediloL 3.125 MG TAB PO SCH ×2 (09:02→21:29)
[2021-06-19] MEDS: SERTRALINE 100 MG TAB PO SCH (09:02)
[2021-06-19] MEDS: SENNOSIDES 8.6 MG TAB PO SCH ×2 (09:02→21:35)
[2021-06-19] MEDS: amLODIPine 10 MG TAB PO SCH (09:02)
[2021-06-19] MEDS: BENZTROPINE 1 MG TAB PO SCH ×2 (09:26→21:29)
--- NOTE | 2021-06-19 09:31 | XRay Report ---
CHEST 1 VIEW INDICATION: respiratory failure. COMPARISON: 06/14/2021 FINDINGS: Support devices: None. Heart: Within normal limits. Lungs/Pleura: Bibasilar airspace opacities have resolved. The interstitium is slightly prominent bila terally suggesting mild interstitial edema. No focal infiltrate, pleural effusion or pneumothorax. Additional findings: None. IMPRESSION: Mild bilateral interstitial edema. Bibasilar airspace opacities have resolved since 06/14/2021. Signer Name: Cristhian Lamas Jr, MD Signed: 06/19/2021 9:26 AM Workstation Name: [id number]
[2021-06-19] MEDS ORDERED: POTASSIUM CHLORIDE ER 20 MEQ TAB PO NR (10:30)
[2021-06-19] MEDS: BUDESONIDE 0.5 MG/2 ML NEBU IH SCH ×2 (10:40→21:01)
[2021-06-19] MEDS: ARFORMOTEROL 15 MCG/2 ML NEBU IH SCH ×2 (10:40→21:01)
[2021-06-19] MEDS: FUROSEMIDE 20 MG/2 ML INJ IV SCH (11:28)
--- NOTE | 2021-06-19 16:02 | Progress Note ---
Assessment and Plan Impression: * Acute kidney injury vs underlying chronic kidney disease * Right subcapital fracture of the hip * Recurrent fall * Hypokalemia * Hypertension Plan: * Renal function improved, creatinine 0.7 * Replete KCl prn, note K 3.4, suspect nutrition related? * Mg at goal * Ensure nutrition as able * Continue Amlodipine 10mg daily; titrate Coreg if indicated, BP reasonable * If K remains low, will check urine K/creatinine ratio, may benefit from HUI/ARB vs MRA vs amiloride if having K wasting but will need to titrate of BP meds to avoid hypotension, dehydration * Replete lytes prn * AM labs ordered Subjective Date of service: 06/19/21 Interval history: Resting in bed, no acute changes noted Objective - Exam Narrative Exam: General appearance: well-developed, well-nourished EENT: ATNC Respiratory: Clear to Ascultation Heart: regular, S1S2 Gastrointestinal: Present: normal Integumentary: no rash, warm and dry Neurologic: no focal deficit, alert and oriented x3 Psychiatric: cooperative - Vital Signs Vital signs: Vital Signs - 12hr 06/19/21 06/19/21 06/19/21 04:11 06:54 06:58 Temperature 100.6 F H 98.3 F Pulse Rate 93 H Pulse Rate [ Anterior Bilateral Throughout] Respiratory 20 Rate Respiratory Rate [Anterior Bilateral Throughout] Blood Pressure 124/59 O2 Sat by Pulse 86 96 Oximetry 06/19/21 06/19/21 06/19/21 07:49 09:00 10:00 Temperature 98.8 F Pulse Rate 86 Pulse Rate [ 82 Anterior Bilateral Throughout] Respiratory 20 Rate Respiratory 19 Rate [Anterior Bilateral Throughout] Blood Pressure 132/65 O2 Sat by Pulse 97 99 Oximetry 06/19/21 12:20 Temperature 98.6 F Pulse Rate 86 Pulse Rate [ Anterior Bilateral Throughout] Respiratory 19 Rate Respiratory Rate [Anterior Bilateral Throughout] Blood Pressure 122/97 O2 Sat by Pulse 94 Oximetry - Lab 06/18/21 04:53 06/19/21 07:11 Most recent lab results Calcium 8.7 mg/dL (8.4-10.2) 06/19/21 00:40 Magnesium 2.00 mg/dL (1.7-2.3) 06/19/21 00:40 Urine Creatinine 102.7 mg/dL (0.1-20.0) H 06/15/21 04:20 Urine Sodium 58 mmol/L 06/15/21 04:20 Urine Total Protein 21 mg/dL (5-11.8) H 06/15/21 04:20 Medications & Allergies - Medications Allergies/Adverse Reactions: Allergies morphine Allergy (Verified 06/20/20 10:53) Rash NAUSEA Home Medications: Home Medications Medication Instructions Recorded Confirmed Last Taken Type Famotidine [Pepcid] 1 tab PO BID 04/17/18 06/15/21 06/13/21 History Haloperidol Decanoate [Haldol 150 mg IM QMONTH 04/17/18 06/15/21 2 Weeks Ago History Decanoate] ~06/01/21 Sertraline [Zoloft] 1 tab PO DAILY 04/17/18 06/15/21 06/13/21 History Aspirin EC [Halfprin EC] 81 mg PO QDAY 06/15/21 06/15/21 06/13/21 History Benztropine [Cogentin] 1 mg PO QHS 06/15/21 06/15/21 06/13/21 History Fluticasone [Flonase] 1 spray NS QDAY PRN 06/15/21 06/15/21 Unknown History Omeprazole 40 mg PO QDAY 06/15/21 06/15/21 06/13/21 History Pravastatin [Pravachol] 20 mg PO QHS 06/15/21 06/15/21 06/13/21 History amLODIPine [Norvasc] 10 mg PO DAILY 06/15/21 06/15/21 06/13/21 History carvediloL [Coreg] 3.125 mg PO BID 06/15/21 06/15/21 06/13/21 History hydroCHLOROthiazide 12.5 mg PO QDAY 06/15/21 06/15/21 06/13/21 History [Hydrochlorothiazide] Active Medications: Generic Name Dose Route Start Last Admin Trade Name Freq PRN Reason Stop Dose Admin Acetaminophen 650 mg 06/14/21 10:00 06/19/21 05:38 Acetaminophen 325 Mg Tab PO 650 mg Q4H PRN Administration Pain MILD(1-3)/Fever >100.5/SANTOS Albuterol 2.5 mg 06/14/21 10:00 Albuterol 2.5 Mg/3 Ml Nebu IH Q3HRT PRN Shortness Of Breath Amlodipine Besylate 10 mg 06/14/21 10:00 06/19/21 09:02 Amlodipine 10 Mg Tab PO 10 mg QDAY МАРИНА Administration Apixaban 2.5 mg 06/15/21 22:00 06/19/21 09:02 Apixaban 2.5 Mg Tab PO 2.5 mg Q12HR МАРИНА Administration Protocol Arformoterol Tartrate 15 mcg 06/14/21 10:00 06/19/21 10:40 Arformoterol 15 Mcg/2 Ml Nebu IH 15 mcg Q12HRT МАРИНА Administration Benztropine Mesylate 1 mg 06/14/21 10:00 06/19/21 09:26 Benztropine 1 Mg Tab PO 1 mg BID МАРИНА Administration Budesonide 0.5 mg 06/14/21 10:00 06/19/21 10:40 Budesonide 0.5 Mg/2 Ml Nebu IH 0.5 mg Q12HRT МАРИНА Administration Carvedilol 6.25 mg 06/18/21 22:00 06/19/21 09:02 Carvedilol 3.125 Mg Tab PO 6.25 mg BID МАРИНА Administration Docusate Sodium 100 mg 06/14/21 10:00 06/19/21 09:02 Docusate Sodium 100 Mg Cap PO 100 mg BID МАРИНА Administration Famotidine 10 mg 06/17/21 22:00 06/19/21 09:02 Famotidine 10 Mg Tab PO 10 mg BID МАРИНА Administration Furosemide 20 mg 06/19/21 11:00 06/19/21 11:28 Furosemide 20 Mg/2 Ml Inj IV 20 mg QDAY МАРИНА Administration Metoclopramide HCl 10 mg 06/14/21 10:00 Metoclopramide 10 Mg/2 Ml Inj IV Q6H PRN Nausea And Vomiting Naloxone HCl 0.1 mg 06/14/21 10:00 Naloxone 0.4 Mg/1 Ml Inj IV Q2MIN PRN Res Rate </= 8 or 02 SAT < 92% Ondansetron HCl 4 mg 06/14/21 10:00 Ondansetron 4 Mg/2 Ml Inj IV Q4H PRN Nausea And Vomiting Oxycodone/Acetaminophen 1 tab 06/14/21 10:00 06/17/21 11:25 Oxycodone /Acetaminophen 5-325mg Tab PO 1 tab Q6H PRN Administration Pain, Moderate (4-6) Pravastatin Sodium 40 mg 06/14/21 22:00 06/18/21 21:39 Pravastatin 40 Mg Tab PO 40 mg QHS МАРИНА Administration Senna 8.6 mg 06/14/21 10:00 06/19/21 09:02 Sennosides 8.6 Mg Tab PO 8.6 mg Q12HR МАРИНА Administration Sertraline HCl 100 mg 06/14/21 10:00 06/19/21 09:02 Sertraline 100 Mg Tab PO 100 mg QDAY МАРИНА Administration Sodium Chloride 10 ml 06/14/21 10:00 06/19/21 09:03 Sodium Chloride 0.9% 10 Ml Flush Syringe IV 10 ml BID МАРИНА Administration Sodium Chloride 10 ml 06/14/21 10:00 Sodium Chloride 0.9% 10 Ml Flush Syringe IV PRN PRN LINE FLUSH
[2021-06-19] MEDS: PRAVASTATIN 40 MG TAB PO SCH (21:35)
[2021-06-20 05:47] LABS: Hematocrit 21.2 % (30.3-42.9); Hemoglobin 7.3 gm/dl (10.1-14.3); Mean Corpuscular HGB Conc 34 % (30-34); Mean Corpuscular Volume 94 fl (79-97); Platelet Count 155 K/mm3 (140-440); Red Blood Count 2.25 M/mm3 (3.65-5.03); Red Cell Distribution Width 14.5 % (13.2-15.2)
[2021-06-20] MEDS ORDERED: POTASSIUM CHLORIDE ER 20 MEQ TAB PO NR (08:30)
[2021-06-20] MEDS: amLODIPine 10 MG TAB PO SCH (09:16)
[2021-06-20] MEDS: carvediloL 3.125 MG TAB PO SCH ×2 (09:16→23:03)
[2021-06-20] MEDS: DOCUSATE SODIUM 100 MG CAP PO SCH ×2 (09:16→23:03)
[2021-06-20] MEDS: BENZTROPINE 1 MG TAB PO SCH ×2 (09:16→23:03)
[2021-06-20] MEDS: APIXABAN 2.5 MG TAB PO SCH ×2 (09:16→23:03)
[2021-06-20] MEDS: SERTRALINE 100 MG TAB PO SCH (09:16)
[2021-06-20] MEDS: SENNOSIDES 8.6 MG TAB PO SCH ×2 (09:16→23:03)
[2021-06-20] MEDS: FUROSEMIDE 20 MG/2 ML INJ IV SCH (09:16)
[2021-06-20] MEDS: FAMOTIDINE 10 MG TAB PO SCH ×2 (09:16→23:03)
[2021-06-20] MEDS: ARFORMOTEROL 15 MCG/2 ML NEBU IH SCH ×2 (10:09→21:15)
[2021-06-20] MEDS: BUDESONIDE 0.5 MG/2 ML NEBU IH SCH ×2 (10:09→21:15)
--- NOTE | 2021-06-20 10:28 | Progress Note ---
Assessment and Plan Impression: * Acute kidney injury vs underlying chronic kidney disease * Right subcapital fracture of the hip * Recurrent fall * Hypokalemia * Hypertension Plan: * Renal function improved, creatinine 0.7 this AM * Replete KCl prn, last K 3.4, suspect nutrition related? * Mg at goal * Ensure nutrition as able * Continue Amlodipine 10mg daily; titrate Coreg if indicated, BP reasonable * If K remains low, will check urine K/creatinine ratio, may benefit from HUI/ARB vs MRA vs amiloride if having K wasting but will need to titrate of BP meds to avoid hypotension, dehydration which is of concern for this frail patient * Replete lytes prn * AM labs ordered Subjective Date of service: 06/20/21 Interval history: Resting in bed, no acute changes noted Objective - Exam Narrative Exam: General appearance: well-developed, well-nourished EENT: ATNC Respiratory: Clear to Ascultation Heart: regular, S1S2 Gastrointestinal: Present: normal Integumentary: no rash, warm and dry Neurologic: no focal deficit, alert and oriented x3 Psychiatric: cooperative - Vital Signs Vital signs: Vital Signs - 12hr 06/19/21 06/20/21 06/20/21 23:00 04:13 06:14 Temperature 100.1 F H Pulse Rate 100 H Pulse Rate [ Anterior Bilateral Throughout] Respiratory 20 Rate Respiratory Rate [Anterior Bilateral Throughout] Blood Pressure 137/57 O2 Sat by Pulse 98 85 97 Oximetry 06/20/21 06/20/21 06/20/21 07:15 09:00 10:00 Temperature Pulse Rate Pulse Rate [ 89 Anterior Bilateral Throughout] Respiratory Rate Respiratory 17 Rate [Anterior Bilateral Throughout] Blood Pressure O2 Sat by Pulse 98 95 Oximetry - Lab 06/20/21 05:16 06/20/21 05:16 Most recent lab results Calcium 8.7 mg/dL (8.4-10.2) 06/19/21 00:40 Magnesium 2.00 mg/dL (1.7-2.3) 06/19/21 00:40 Urine Creatinine 102.7 mg/dL (0.1-20.0) H 06/15/21 04:20 Urine Sodium 58 mmol/L 06/15/21 04:20 Urine Total Protein 21 mg/dL (5-11.8) H 06/15/21 04:20 Medications & Allergies - Medications Allergies/Adverse Reactions: Allergies morphine Allergy (Verified 06/20/20 10:53) Rash NAUSEA Home Medications: Home Medications Medication Instructions Recorded Confirmed Last Taken Type Famotidine [Pepcid] 1 tab PO BID 04/17/18 06/15/21 06/13/21 History Haloperidol Decanoate [Haldol 150 mg IM QMONTH 04/17/18 06/15/21 2 Weeks Ago History Decanoate] ~06/01/21 Sertraline [Zoloft] 1 tab PO DAILY 04/17/18 06/15/21 06/13/21 History Aspirin EC [Halfprin EC] 81 mg PO QDAY 06/15/21 06/15/21 06/13/21 History Benztropine [Cogentin] 1 mg PO QHS 06/15/21 06/15/21 06/13/21 History Fluticasone [Flonase] 1 spray NS QDAY PRN 06/15/21 06/15/21 Unknown History Omeprazole 40 mg PO QDAY 06/15/21 06/15/21 06/13/21 History Pravastatin [Pravachol] 20 mg PO QHS 06/15/21 06/15/21 06/13/21 History amLODIPine [Norvasc] 10 mg PO DAILY 06/15/21 06/15/21 06/13/21 History carvediloL [Coreg] 3.125 mg PO BID 06/15/21 06/15/21 06/13/21 History hydroCHLOROthiazide 12.5 mg PO QDAY 06/15/21 06/15/21 06/13/21 History [Hydrochlorothiazide] Active Medications: Generic Name Dose Route Start Last Admin Trade Name Freq PRN Reason Stop Dose Admin Acetaminophen 650 mg 06/14/21 10:00 06/19/21 05:38 Acetaminophen 325 Mg Tab PO 650 mg Q4H PRN Administration Pain MILD(1-3)/Fever >100.5/SANTOS Albuterol 2.5 mg 06/14/21 10:00 Albuterol 2.5 Mg/3 Ml Nebu IH Q3HRT PRN Shortness Of Breath Amlodipine Besylate 10 mg 06/14/21 10:00 06/20/21 09:16 Amlodipine 10 Mg Tab PO 10 mg QDAY МАРИНА Administration Apixaban 2.5 mg 06/15/21 22:00 06/20/21 09:16 Apixaban 2.5 Mg Tab PO 2.5 mg Q12HR МАРИНА Administration Protocol Arformoterol Tartrate 15 mcg 06/14/21 10:00 06/20/21 10:09 Arformoterol 15 Mcg/2 Ml Nebu IH 15 mcg Q12HRT МАРИНА Administration Benztropine Mesylate 1 mg 06/14/21 10:00 06/20/21 09:16 Benztropine 1 Mg Tab PO 1 mg BID МАРИНА Administration Budesonide 0.5 mg 06/14/21 10:00 06/20/21 10:09 Budesonide 0.5 Mg/2 Ml Nebu IH 0.5 mg Q12HRT МАРИНА Administration Carvedilol 6.25 mg 06/18/21 22:00 06/20/21 09:16 Carvedilol 3.125 Mg Tab PO 6.25 mg BID МАРИНА Administration Docusate Sodium 100 mg 06/14/21 10:00 06/20/21 09:16 Docusate Sodium 100 Mg Cap PO 100 mg BID МАРИНА Administration Famotidine 10 mg 06/17/21 22:00 06/20/21 09:16 Famotidine 10 Mg Tab PO 10 mg BID МАРИНА Administration Furosemide 20 mg 06/19/21 11:00 06/20/21 09:16 Furosemide 20 Mg/2 Ml Inj IV 20 mg QDAY МАРИНА Administration Metoclopramide HCl 10 mg 06/14/21 10:00 Metoclopramide 10 Mg/2 Ml Inj IV Q6H PRN Nausea And Vomiting Naloxone HCl 0.1 mg 06/14/21 10:00 Naloxone 0.4 Mg/1 Ml Inj IV Q2MIN PRN Res Rate </= 8 or 02 SAT < 92% Ondansetron HCl 4 mg 06/14/21 10:00 Ondansetron 4 Mg/2 Ml Inj IV Q4H PRN Nausea And Vomiting Oxycodone/Acetaminophen 1 tab 06/14/21 10:00 06/17/21 11:25 Oxycodone /Acetaminophen 5-325mg Tab PO 1 tab Q6H PRN Administration Pain, Moderate (4-6) Potassium Chloride 40 meq 06/20/21 08:30 06/20/21 09:16 Potassium Chloride Er 20 Meq Tab PO 06/20/21 13:00 40 meq ONCE@0830 NR Administration Pravastatin Sodium 40 mg 06/14/21 22:00 06/19/21 21:35 Pravastatin 40 Mg Tab PO 40 mg QHS МАРИНА Administration Senna 8.6 mg 06/14/21 10:00 06/20/21 09:16 Sennosides 8.6 Mg Tab PO 8.6 mg Q12HR МАРИНА Administration Sertraline HCl 100 mg 06/14/21 10:00 06/20/21 09:16 Sertraline 100 Mg Tab PO 100 mg QDAY МАРИНА Administration Sodium Chloride 10 ml 06/14/21 10:00 06/20/21 09:17 Sodium Chloride 0.9% 10 Ml Flush Syringe IV 10 ml BID МАРИНА Administration Sodium Chloride 10 ml 06/14/21 10:00 Sodium Chloride 0.9% 10 Ml Flush Syringe IV PRN PRN LINE FLUSH
[2021-06-20 16:21] LABS: BUN/Creatinine Ratio 15; Blood Urea Nitrogen 12 mg/dL (7-17); Calcium 8.8 mg/dL (8.4-10.2); Hemolysis Index 0
--- NOTE | 2021-06-20 18:36 | Progress Note ---
Assessment and Plan Assessment and plan: #Right subcapital fracture of the hip with superior displacement of distal fragment -#POD: 4 s/p R bipolar hip repair -PT evaluation: recommends HUNTER placement -continue eliquis for DVT PPx for 5 weeks total -PRN pain medication #Debility with recurrent falls -patient lives at home with family -will likely require rehabilitation post operatively, CM aware and started the referral process #SIRSresolved -TMax 101.1, tachycardia -patient treated for cystitis, no other source of infection at this time -BCx and CXR ordered #Acute cystitis with hematuriaresolved -UA consistent with infection -s/p rocephin x 3 days #Community-acquired pneumonia with possible aspiration -CXR with bibasilar opacities account service representative of atelectases versus pneumonia -patient received empiric abx for CAP -patient without signs and symptoms suggestive of PNA; will not treat #Schizophrenia -stable, will continue home medications #Acute kidney injury likely secondary to vasomotor nephropathy-resolved #Volume depletion-resolved -SCr improved following IVFs -IVFs discontinue due to patient tolerating diet -Renal US shows medical renal disease with bilateral cysts -Nephrology consulted, assistance appreciated #Hypokalemiaresolved -likely 2/2 to HCTZ -will replete and monitor daily -will start KCl tabs 10Meq daily #Hypertension -will continue amlodipine and coreg -HCTZ held due to hypoK and SIERRA -likely exacerbated by pain from acute injury -goal SBP <160 while inpatient #COPD -stable, not in acute exacerbation -will continue home inhalers #Advanced care planning -Disease education conducted, care plan discussed, diagnoses discussed, prognosis discussed, and patient acknowledges understanding with care plan -Time: +30 min #Discharge planning - Patient is pending authorization for placement - Case management has been made aware. - Discharge is tentatively 48-72 hours Disposition Plan: Continue medical management Total Time Spent with Patient (Minutes): 30 minutes History Interval history: No acute events overnight. Hospitalist Physical - Constitutional Vitals: Temp Pulse Resp BP Pulse Ox 100.1 F H 89 17 137/57 95 06/20/21 04:13 06/20/21 09:00 06/20/21 09:00 06/20/21 04:13 06/20/21 10:00 General appearance: Present: no acute distress, well-nourished - EENT Eyes: Present: PERRL, EOM intact ENT: hearing intact, clear oral mucosa - Neck Neck: Present: supple, normal ROM - Respiratory Respiratory effort: normal Respiratory: bilateral: CTA - Cardiovascular Rhythm: regular Heart Sounds: Present: S1 & S2 - Extremities Extremities: no ischemia, pulses intact, pulses symmetrical, normal temperature, normal color Extremity abnormal: tenderness (Mild tenderness of right hip at incision site) Peripheral Pulses: within normal limits - Abdominal General gastrointestinal: soft, non-tender, non-distended, normal bowel sounds - Integumentary Integumentary: Present: clear, warm, dry - Psychiatric Psychiatric: appropriate mood/affect, cooperative - Neurologic Neurologic: other (Alert and oriented x3) - Allied Health Allied health notes reviewed: nursing Results - Labs CBC & Chem 7: 06/20/21 05:16 06/20/21 15:12 Labs: Laboratory Last Values WBC 6.4 K/mm3 (4.5-11.0) 06/20/21 05:16 RBC 2.25 M/mm3 (3.65-5.03) L 06/20/21 05:16 Hgb 7.3 gm/dl (10.1-14.3) L 06/20/21 05:16 Hct 21.2 % (30.3-42.9) L 06/20/21 05:16 MCV 94 fl (79-97) 06/20/21 05:16 MCH 32 pg (28-32) 06/20/21 05:16 MCHC 34 % (30-34) 06/20/21 05:16 RDW 14.5 % (13.2-15.2) 06/20/21 05:16 Plt Count 155 K/mm3 (140-440) 06/20/21 05:16 Lymph % (Auto) 14.6 % (13.4-35.0) 06/15/21 04:54 [place] % (Auto) 6.9 % (0.0-7.3) 06/15/21 04:54 Eos % (Auto) 1.7 % (0.0-4.3) 06/15/21 04:54 Baso % (Auto) 0.4 % (0.0-1.8) 06/15/21 04:54 Lymph # (Auto) 0.7 K/mm3 (1.2-5.4) L 06/15/21 04:54 [place] # (Auto) 0.4 K/mm3 (0.0-0.8) 06/15/21 04:54 Eos # (Auto) 0.1 K/mm3 (0.0-0.4) 06/15/21 04:54 Baso # (Auto) 0.0 K/mm3 (0.0-0.1) 06/15/21 04:54 Seg Neutrophils % 76.4 % (40.0-70.0) H 06/15/21 04:54 Seg Neutrophils # 3.9 K/mm3 (1.8-7.7) 06/15/21 04:54 PT 14.9 Sec. (12.2-14.9) 06/14/21 15:56 INR 1.05 (0.87-1.13) 06/14/21 15:56 APTT 38.4 Sec. (24.2-36.6) H 06/14/21 15:56 Sodium 134 mmol/L (137-145) L 06/20/21 15:12 Potassium 4.0 mmol/L (3.6-5.0) 06/20/21 15:12 Chloride 97.3 mmol/L (98-107) L 06/20/21 15:12 Carbon Dioxide 25 mmol/L (22-30) 06/20/21 15:12 Anion Gap 16 mmol/L 06/20/21 15:12 BUN 12 mg/dL (7-17) 06/20/21 15:12 Creatinine 0.8 mg/dL (0.6-1.2) 06/20/21 15:12 Estimated GFR > 60 ml/min 06/20/21 15:12 BUN/Creatinine Ratio 15 % 06/20/21 15:12 Glucose 114 mg/dL (65-100) H 06/20/21 15:12 POC Glucose 126 mg/dL (70-105) H 06/19/21 12:18 Calcium 8.8 mg/dL (8.4-10.2) 06/20/21 15:12 Magnesium 2.00 mg/dL (1.7-2.3) 06/19/21 00:40 Total Bilirubin 0.40 mg/dL (0.1-1.2) 06/15/21 04:54 AST 13 units/L (5-40) 06/15/21 04:54 ALT 8 units/L (7-56) 06/15/21 04:54 Alkaline Phosphatase 75 units/L (35-129) 06/15/21 04:54 Total Protein 6.9 g/dL (6.3-8.2) 06/15/21 04:54 Albumin 3.8 g/dL (3.9-5) L 06/15/21 04:54 Albumin/Globulin Ratio 1.2 % 06/15/21 04:54 Urine Color Yellow (Yellow) 06/15/21 04:20 Urine Turbidity Clear (Clear) 06/15/21 04:20 Urine pH 5.0 (5.0-7.0) 06/15/21 04:20 Ur Specific [place] 1.035 (1.003-1.030) H 06/15/21 04:20 Urine Protein <15 mg/dl mg/dL (Negative) 06/15/21 04:20 Urine Glucose (UA) Negative mg/dL (Negative) 06/15/21 04:20 Urine Ketones Negative mg/dL (Negative) 06/15/21 04:20 Urine Blood Negative (Negative) 06/15/21 04:20 Urine Nitrite Positive (Negative) 06/15/21 04:20 Ur Reducing Substances Not Reportable 06/15/21 04:20 Urine Bilirubin Negative (Negative) 06/15/21 04:20 Urine Ictotest Not Reportable 06/15/21 04:20 Urine Urobilinogen < 2.0 mg/dL (<2.0) 06/15/21 04:20 Ur Leukocyte Esterase Moderate (Negative) 06/15/21 04:20 Urine WBC (Auto) 26.0 /HPF (0.0-6.0) H 06/15/21 04:20 Urine RBC (Auto) 2.0 /HPF (0.0-6.0) 06/15/21 04:20 U Epithel Cells (Auto) < 1.0 /HPF (0-13.0) 06/15/21 04:20 Urine Bacteria (Auto) 1+ /HPF (Negative) 06/15/21 04:20 Urine Mucus Few /HPF 06/15/21 04:20 Urine Creatinine 102.7 mg/dL (0.1-20.0) H 06/15/21 04:20 Protein/Creatinin Ratio 0.20 06/15/21 04:20 Urine Sodium 58 mmol/L 06/15/21 04:20 Urine Total Protein 21 mg/dL (5-11.8) H 06/15/21 04:20 Coronavirus (PCR) Negative (Negative) 06/20/21 08:30 Microbiology: Microbiology 06/19/21 10:41 Peripheral/Venous Blood Culture - Preliminary NO GROWTH AFTER 24 HOURS 06/19/21 10:41 Peripheral/Venous Blood Culture - Preliminary NO GROWTH AFTER 24 HOURS [place]/IV: Voiding Method External Female Catheter Active Medications - Current Medications Current Medications: Generic Name Dose Route Start Last Admin Trade Name Freq PRN Reason Stop Dose Admin Acetaminophen 650 mg 06/14/21 10:00 06/19/21 05:38 Acetaminophen 325 Mg Tab PO 650 mg Q4H PRN Administration Pain MILD(1-3)/Fever >100.5/SANTOS Albuterol 2.5 mg 06/14/21 10:00 Albuterol 2.5 Mg/3 Ml Nebu IH Q3HRT PRN Shortness Of Breath Amlodipine Besylate 10 mg 06/14/21 10:00 06/20/21 09:16 Amlodipine 10 Mg Tab PO 10 mg QDAY МАРИНА Administration Apixaban 2.5 mg 06/15/21 22:00 06/20/21 09:16 Apixaban 2.5 Mg Tab PO 2.5 mg Q12HR МАРИНА Administration Protocol Arformoterol Tartrate 15 mcg 06/14/21 10:00 06/20/21 10:09 Arformoterol 15 Mcg/2 Ml Nebu IH 15 mcg Q12HRT МАРИНА Administration Benztropine Mesylate 1 mg 06/14/21 10:00 06/20/21 09:16 Benztropine 1 Mg Tab PO 1 mg BID МАРИНА Administration Budesonide 0.5 mg 06/14/21 10:00 06/20/21 10:09 Budesonide 0.5 Mg/2 Ml Nebu IH 0.5 mg Q12HRT МАРИНА Administration Carvedilol 6.25 mg 06/18/21 22:00 06/20/21 09:16 Carvedilol 3.125 Mg Tab PO 6.25 mg BID МАРИНА Administration Docusate Sodium 100 mg 06/14/21 10:00 06/20/21 09:16 Docusate Sodium 100 Mg Cap PO 100 mg BID МАРИНА Administration Famotidine 10 mg 06/17/21 22:00 06/20/21 09:16 Famotidine 10 Mg Tab PO 10 mg BID МАРИНА Administration Furosemide 20 mg 06/19/21 11:00 06/20/21 09:16 Furosemide 20 Mg/2 Ml Inj IV 20 mg QDAY МАРИНА Administration Metoclopramide HCl 10 mg 06/14/21 10:00 Metoclopramide 10 Mg/2 Ml Inj IV Q6H PRN Nausea And Vomiting Naloxone HCl 0.1 mg 06/14/21 10:00 Naloxone 0.4 Mg/1 Ml Inj IV Q2MIN PRN Res Rate </= 8 or 02 SAT < 92% Ondansetron HCl 4 mg 06/14/21 10:00 Ondansetron 4 Mg/2 Ml Inj IV Q4H PRN Nausea And Vomiting Oxycodone/Acetaminophen 1 tab 06/14/21 10:00 06/17/21 11:25 Oxycodone /Acetaminophen 5-325mg Tab PO 1 tab Q6H PRN Administration Pain, Moderate (4-6) Pravastatin Sodium 40 mg 06/14/21 22:00 06/19/21 21:35 Pravastatin 40 Mg Tab PO 40 mg QHS МАРИНА Administration Senna 8.6 mg 06/14/21 10:00 06/20/21 09:16 Sennosides 8.6 Mg Tab PO 8.6 mg Q12HR МАРИНА Administration Sertraline HCl 100 mg 06/14/21 10:00 06/20/21 09:16 Sertraline 100 Mg Tab PO 100 mg QDAY МАРИНА Administration Sodium Chloride 10 ml 06/14/21 10:00 06/20/21 09:17 Sodium Chloride 0.9% 10 Ml Flush Syringe IV 10 ml BID МАРИНА Administration Sodium Chloride 10 ml 06/14/21 10:00 Sodium Chloride 0.9% 10 Ml Flush Syringe IV PRN PRN LINE FLUSH Nutrition/Malnutrition Assess - Dietary Evaluation Nutrition/Malnutrition Findings: Nutrition Notes Start: 06/20/21 17:43 Freq: Status: Active Protocol: Document 06/20/21 17:44 DEEPAK (Rec: 06/20/21 18:05 [email or web address] [id number]) Nutrition Notes Need for Assessment generated from: MD Order Initial or Follow up Assessment Current Diagnosis Acute Kidney Injury,CKD(stage I-IV),Hypertension Other Pertinent Diagnosis R-Subcapital Fracture of Hip, s/p R-Bipolar Hip Replacement. Current Diet Cardiac Diet (since B 06/16), D Suppl (since D 06/20). Labs/Tests 06/20: Na 134, Cl 97.3, Glu 114. Pertinent Medications 06/20: Nutritionally unremarkable. Height 5 ft 2 in Weight 78.3 kg [place] Body Weight (kg) 50.00 BMI 31.6 Intake Prior to Admission Good Weight change and time frame Pt denies having loss body weight [employer]. Weight Status Obese Subjective/Other Information RD consult for Poor Oral Intake and dietary supplementation assessments. Pt's PO intake of meals has been Negligible (0-25%), according to ADL notes. I will prescribe Dietary Supplementation to compensate for poor or unsuficient PO intake of meals, and will reassess at F/U. Percent of energy/protein needs met: Prescribed Cardiac Diet provides for energy/protein needs (2,230 Kcal/85 g) during LOS; additionally, Dietary Supplements will compensate for possible poor or insufficient PO intake of meals with 1,050 Kcal and 60 g of protein. Burn Absent Trauma Present GI Symptoms None Food Allergy No Skin Integrity/Comment R-Hip drain. Current % PO Negligible Minimum of two criteria No #1 Nutrition Diagnosis Inadequate protein-energy intake Etiology Uncertain. As Evidenced by Signs and Symptoms Pt's PO intake of meals has been Negligible (0-25%), according to ADL notes. Is patient on ventilator? No Is Patient Ambulatory and/or Out of Bed Yes REE-([facility]-ambulatory/OOB) [ 1613.625 [id number]] Kcal/Kg value to use for calculation 16 Approximate Energy Requirements Using 1253 kcal/Kg Calculation Used for Recommendations Kcal/kg Additional Notes Protein: 1-1.2 g/Kg AdjBW; 64- 77 g/day. Fluids: 1 ml/Kcal, or as per MD. Nutrition Intervention Change Diet Order: Continue Cardiac Diet. Add Supplement/Snack (indicate name/kcal 8 fl oz Ensure Enlive: TID. /protein ) Provides kCal: 1,050 Provides Protein (gm) 60 Goal #1 Compensate, through dietary supplementation, for possible poor or insufficient PO intake of meals during LOS. Goal #2 Maintain body weight within +/ -3% of admission body weight during LOS. Follow-Up By: 06/27/21 Additional Comments Continue monitoring food tolerance, %PO intake of meals , and BM.
[2021-06-20] MEDS: PRAVASTATIN 40 MG TAB PO SCH (23:03)
--- NOTE | 2021-06-21 09:50 | Progress Note ---
Assessment and Plan Impression: * Acute kidney injury vs underlying chronic kidney disease * Right subcapital fracture of the hip * Recurrent fall * Hypokalemia * Hypertension Plan: * Renal function improved, creatinine 0.8 this AM * Replete KCl prn, K at goal today * Note mild hyponatremia to 134 * Mg at goal * Ensure nutrition as able * Continue Amlodipine 10mg daily; titrate Coreg if indicated, BP reasonable * Replete lytes prn * AM labs ordered * Nephrology will follow peripherally, thank you for this consult Subjective Date of service: 06/21/21 Interval history: Resting in bed, no acute changes noted Objective - Exam Narrative Exam: General appearance: well-developed, well-nourished EENT: ATNC Respiratory: Clear to Ascultation Heart: regular, S1S2 Gastrointestinal: Present: normal Integumentary: no rash, warm and dry Neurologic: no focal deficit, alert and oriented x3 Psychiatric: cooperative - Vital Signs Vital signs: Vital Signs - 12hr 06/21/21 06/21/21 05:11 06:00 Temperature 98.6 F Pulse Rate 95 H Respiratory 18 Rate Blood Pressure 115/56 O2 Sat by Pulse 96 98 Oximetry - Lab 06/20/21 05:16 06/20/21 15:12 Most recent lab results Calcium 8.8 mg/dL (8.4-10.2) 06/20/21 15:12 Magnesium 2.00 mg/dL (1.7-2.3) 06/19/21 00:40 Urine Creatinine 102.7 mg/dL (0.1-20.0) H 06/15/21 04:20 Urine Sodium 58 mmol/L 06/15/21 04:20 Urine Total Protein 21 mg/dL (5-11.8) H 06/15/21 04:20 Medications & Allergies - Medications Allergies/Adverse Reactions: Allergies morphine Allergy (Verified 06/20/20 10:53) Rash NAUSEA Home Medications: Home Medications Medication Instructions Recorded Confirmed Last Taken Type Famotidine [Pepcid] 1 tab PO BID 04/17/18 06/15/21 06/13/21 History Haloperidol Decanoate [Haldol 150 mg IM QMONTH 04/17/18 06/15/21 2 Weeks Ago History Decanoate] ~06/01/21 Sertraline [Zoloft] 1 tab PO DAILY 04/17/18 06/15/21 06/13/21 History Aspirin EC [Halfprin EC] 81 mg PO QDAY 06/15/21 06/15/21 06/13/21 History Benztropine [Cogentin] 1 mg PO QHS 06/15/21 06/15/21 06/13/21 History Fluticasone [Flonase] 1 spray NS QDAY PRN 06/15/21 06/15/21 Unknown History Omeprazole 40 mg PO QDAY 06/15/21 06/15/21 06/13/21 History Pravastatin [Pravachol] 20 mg PO QHS 06/15/21 06/15/21 06/13/21 History amLODIPine [Norvasc] 10 mg PO DAILY 06/15/21 06/15/21 06/13/21 History carvediloL [Coreg] 3.125 mg PO BID 06/15/21 06/15/21 06/13/21 History hydroCHLOROthiazide 12.5 mg PO QDAY 06/15/21 06/15/21 06/13/21 History [Hydrochlorothiazide] Active Medications: Generic Name Dose Route Start Last Admin Trade Name Freq PRN Reason Stop Dose Admin Acetaminophen 650 mg 06/14/21 10:00 06/19/21 05:38 Acetaminophen 325 Mg Tab PO 650 mg Q4H PRN Administration Pain MILD(1-3)/Fever >100.5/SANTOS Albuterol 2.5 mg 06/14/21 10:00 Albuterol 2.5 Mg/3 Ml Nebu IH Q3HRT PRN Shortness Of Breath Amlodipine Besylate 10 mg 06/14/21 10:00 06/20/21 09:16 Amlodipine 10 Mg Tab PO 10 mg QDAY МАРИНА Administration Apixaban 2.5 mg 06/15/21 22:00 06/20/21 23:03 Apixaban 2.5 Mg Tab PO 2.5 mg Q12HR МАРИНА Administration Protocol Arformoterol Tartrate 15 mcg 06/14/21 10:00 06/20/21 21:15 Arformoterol 15 Mcg/2 Ml Nebu IH 15 mcg Q12HRT МАРИНА Administration Benztropine Mesylate 1 mg 06/14/21 10:00 06/20/21 23:03 Benztropine 1 Mg Tab PO 1 mg BID МАРИНА Administration Budesonide 0.5 mg 06/14/21 10:00 06/20/21 21:15 Budesonide 0.5 Mg/2 Ml Nebu IH 0.5 mg Q12HRT МАРИНА Administration Carvedilol 6.25 mg 06/18/21 22:00 06/20/21 23:03 Carvedilol 3.125 Mg Tab PO Not Given BID МАРИНА Docusate Sodium 100 mg 06/14/21 10:00 06/20/21 23:03 Docusate Sodium 100 Mg Cap PO 100 mg BID МАРИНА Administration Famotidine 10 mg 06/17/21 22:00 06/20/21 23:03 Famotidine 10 Mg Tab PO 10 mg BID МАРИНА Administration Furosemide 20 mg 06/19/21 11:00 06/20/21 09:16 Furosemide 20 Mg/2 Ml Inj IV 20 mg QDAY МАРИНА Administration Metoclopramide HCl 10 mg 06/14/21 10:00 Metoclopramide 10 Mg/2 Ml Inj IV Q6H PRN Nausea And Vomiting Naloxone HCl 0.1 mg 06/14/21 10:00 Naloxone 0.4 Mg/1 Ml Inj IV Q2MIN PRN Res Rate </= 8 or 02 SAT < 92% Ondansetron HCl 4 mg 06/14/21 10:00 Ondansetron 4 Mg/2 Ml Inj IV Q4H PRN Nausea And Vomiting Oxycodone/Acetaminophen 1 tab 06/14/21 10:00 06/17/21 11:25 Oxycodone /Acetaminophen 5-325mg Tab PO 1 tab Q6H PRN Administration Pain, Moderate (4-6) Pravastatin Sodium 40 mg 06/14/21 22:00 06/20/21 23:03 Pravastatin 40 Mg Tab PO 40 mg QHS МАРИНА Administration Senna 8.6 mg 06/14/21 10:00 06/20/21 23:03 Sennosides 8.6 Mg Tab PO 8.6 mg Q12HR МАРИНА Administration Sertraline HCl 100 mg 06/14/21 10:00 06/20/21 09:16 Sertraline 100 Mg Tab PO 100 mg QDAY МАРИНА Administration Sodium Chloride 10 ml 06/14/21 10:00 06/20/21 23:04 Sodium Chloride 0.9% 10 Ml Flush Syringe IV 10 ml BID МАРИНА Administration Sodium Chloride 10 ml 06/14/21 10:00 Sodium Chloride 0.9% 10 Ml Flush Syringe IV PRN PRN LINE FLUSH
[2021-06-21] MEDS: carvediloL 3.125 MG TAB PO SCH (10:00)
[2021-06-21] MEDS: amLODIPine 10 MG TAB PO SCH (10:00)
--- NOTE | 2021-06-21 10:31 | Progress Note ---
Subjective Date of service: 06/21/21 Interval history: PROGRESS NOTE S: POD #6` ; patient lying in bed alert , no acute distress. No complaints except for postoperative pain; O: Leg is equal length with the opposite lower extremity; mild swelling proximal femur left hip. Dressing on proximal wound shows minimal drainage and is intact. Passive inward and external rotation of the hip produces no pain. Able to do straight leg raise with assistance. Neurovascularly intact A: Satisfactory postop course, postop day #6 for THR Left hip P: 1. continue with postop physical therapy as directed per THR protocol with protected weightbearing at all times and partial weightbearing; safety precautions. Continue with DVT prophylaxis as directed and will continue at home for 5 weeks. Discharge planning ; if no family can be with her for the next several weeks , will need SNF placement Objective Vital signs: Vital Signs - 12hr 06/21/21 06/21/21 05:11 06:00 Temperature 98.6 F Pulse Rate 95 H Respiratory 18 Rate Blood Pressure 115/56 O2 Sat by Pulse 96 98 Oximetry - Labs CBC & BMP: 06/20/21 05:16 06/20/21 15:12 Labs: Abnormal lab results 06/20/21 06/20/21 Range/Units 15:12 20:14 Sodium 134 L (137-145) mmol/L Chloride 97.3 L (98-107) mmol/L Glucose 114 H (65-100) mg/dL POC Glucose 159 H (70-105) mg/dL
[2021-06-21] MEDS: DOCUSATE SODIUM 100 MG CAP PO SCH (10:42)
[2021-06-21] MEDS: ARFORMOTEROL 15 MCG/2 ML NEBU IH SCH (10:43)
[2021-06-21] MEDS: BUDESONIDE 0.5 MG/2 ML NEBU IH SCH (10:43)
[2021-06-21] MEDS: FAMOTIDINE 10 MG TAB PO SCH (10:44)
[2021-06-21] MEDS: SENNOSIDES 8.6 MG TAB PO SCH (10:45)
[2021-06-21] MEDS: APIXABAN 2.5 MG TAB PO SCH (10:45)
[2021-06-21] MEDS: SERTRALINE 100 MG TAB PO SCH (10:46)
--- NOTE | 2021-06-21 11:18 | Discharge Summary ---
Providers - Providers Date of Admission: 06/14/21 08:46 Date of discharge: 06/21/21 Attending physician: BREANNA BUSH MD 06/14/21 Consult to Case Management [CONS] Routine Services Needed at Discharge: Sales Development Consultant Notified:: no Additional Physician Instructions: potential rehab 06/14/21 08:41 Consult to Physician [CONS] Stat Comment: Consulting Provider: ROSA MARIA MILIAN Physician Instructions: Reason For Exam: fracture 06/14/21 08:45 Consult to Physician [CONS] Routine Comment: Consulting Provider: RAQUEL HARVEY Physician Instructions: Reason For Exam: schizophrenia-med management 06/14/21 08:51 Occupational Therapy Evaluate and Treat [CONS] Routine Comment: Reason For Exam: fracture right hip Physical Therapy Evaluation and Treat [CONS] Routine Comment: Reason For Exam: fracture right hip and debility 06/14/21 08:53 Consult to Physician [CONS] Routine Comment: Consulting Provider: MARIE VEE Physician Instructions: Reason For Exam: SIERRA 06/15/21 13:29 Physical Therapy Evaluation and Treat [CONS] Urgent Comment: Reason For Exam: Operative hip replacement surgery for right hip fr Mode of Transport?: Walker Weight bearing status?: Partial wt bearing Assistive devices?: Yes: Walker at all times 06/20/21 15:33 Consult to Dietitian/Nutrition [CONS] Routine Physician Instructions: Can patient be given Ensure due to low appetite. Reason For Exam: Reason for Consult: Poor oral intake Primary care physician: CONCHITA ALEX Hospitalization Reason for admission: Right hip fracture with superior displacement of distal fragment Condition: Stable Pertinent studies: Reviewed. Procedures: Right bipolar hip replacement of right hip Hospital course: Patient is a 75-year-old female with past medical history of schizophrenia, hypertension, tobacco use disorder who presented to the hospital today following a fall last night of which she could not move her right leg following the fall. She was in the ER noted to have his Septal fracture of the right hip. On physical exam was noted that the right lower extremity was shortened and Externally rotated. And has also received a dose of fentanyl with an appropriate consult and planning for surgery tomorrow we are asked to admit and manage. Patient seen and examined very poor historian he she lives with her son who is also her caregiver and is at the bedside. Reports to me that the patient on standing up last night from a sitting position staggered backwards and fell. He reports that this has also happened in the last year and a physician's office where the patient also sustained a fall after standing from a sitting position with no loss of consciousness reported at either time. At the previous event she had a fracture of her right requiring surgery. Patient was recently in the hospital here for an outpatient colonoscopy for hematochezia with no complications noted with anesthesia. She reports her pain to be a 3/10 in intensity at this time this is shortly after receiving fentanyl IV. The patient was evaluated by orthopedic surgery, and the patient underwent a bipolar hip replacement of the right hip on 06/15/2021. Patient tolerated the procedure well. The patient was evaluated by physical therapy, who recommended subacute rehab. The patient will continue Eliquis 5 mg twice daily for total of 5 weeks in the setting of a hip fracture status post repair. The patient was found to have acute cystitis with hematuria that was treated with 3 days of Rocephin. The patient was also found to have an SIERRA on presentation that is since resolved after IV fluid resuscitation. Chest x-ray was performed revealing atelectasis versus pneumonia, the patient was empirically treated with antibiotics for community-acquired pneumonia. Patient is medically clear for discharge. [facility] Final Discharge Diagnosis (Prints w/discharge instructions): Right subcapital fracture of the hip with superior displacement of distal fragment status post right bipolar hip repair, debility with recurrent falls, SIRS, acute cystitis with hematuria, community-acquired pneumonia with possible aspiration, schizophrenia, SIERRA secondary to vasomotor nephropathy, volume depletion, hypokalemia, hypertension, COPD Time spent for discharge: 45 minutes Core Measure Documentation - Palliative Care Palliative Care/ Comfort Measures: Not Applicable - Core Measures Any of the following diagnoses?: none Exam - Constitutional Vitals: Temp Pulse Resp BP Pulse Ox 97.6 F 89 20 116/50 96 06/21/21 10:47 06/21/21 10:47 06/21/21 10:47 06/21/21 10:47 06/21/21 10:47 General appearance: Present: no acute distress, well-nourished - EENT Eyes: Present: PERRL, EOM intact ENT: hearing intact, clear oral mucosa, edentulous - Neck Neck: Present: supple, normal ROM - Respiratory Respiratory effort: normal Respiratory: bilateral: CTA (On 3 L nasal cannula) - Cardiovascular Rhythm: regular Heart Sounds: Present: S1 & S2 - Extremities Extremities: no ischemia, pulses intact, pulses symmetrical, normal temperature, normal color Extremity abnormal: tenderness (Appropriate tenderness of right hip at incision site) Peripheral Pulses: within normal limits - Abdominal General gastrointestinal: Present: soft, non-tender, non-distended, normal bowel sounds Female genitourinary: Present: deferred - Rectal Rectal Exam: deferred - Integumentary Integumentary: Present: clear, warm, dry - Psychiatric Psychiatric: cooperative, other (Limited memory and insight) - Neurologic Neurologic: other (Alert and oriented x2) - Allied Health Allied health notes reviewed: nursing Plan Activity: advance as tolerated Diet: low salt Wound: per your surgeon's advice Additional Instructions: Patient is a 75-year-old female with past medical history of schizophrenia, hypertension, tobacco use disorder who presented to the hospital today following a fall last night of which she could not move her right leg following the fall. She was in the ER noted to have his Septal fracture of the right hip. On physical exam was noted that the right lower extremity was shortened and Externally rotated. And has also received a dose of fentanyl with an appropriate consult and planning for surgery tomorrow we are asked to admit and manage. Patient seen and examined very poor historian he she lives with her son who is also her caregiver and is at the bedside. Reports to me that the patient on standing up last night from a sitting position staggered backwards and fell. He reports that this has also happened in the last year and a physician's office where the patient also sustained a fall after standing from a sitting position with no loss of consciousness reported at either time. At the previous event she had a fracture of her right requiring surgery. Patient was recently in the hospital here for an outpatient colonoscopy for hematochezia with no complications noted with anesthesia. She reports her pain to be a 3/10 in intensity at this time this is shortly after receiving fentanyl IV. The patient was evaluated by orthopedic surgery, and the patient underwent a bipolar hip replacement of the right hip on 06/15/2021. Patient tolerated the procedure well. The patient was evaluated by physical therapy, who recommended subacute rehab. The patient will continue Eliquis 5 mg twice daily for total of 5 weeks in the setting of a hip fracture status post repair. The patient was found to have acute cystitis with hematuria that was treated with 3 days of Rocephin. The patient was also found to have an SIERRA on presentation that is since resolved after IV fluid resuscitation. Chest x-ray was performed revealing atelectasis versus pneumonia, the patient was empirically treated with antibiotics for community-acquired pneumonia. Patient is medically clear for discharge. Care Plan Goals: Patient is medically clear for discharge. Assessment: Patient is a 75-year-old female with past medical history of schizophrenia, hypertension, tobacco use disorder who presented to the hospital today following a fall last night of which she could not move her right leg following the fall. She was in the ER noted to have his Septal fracture of the right hip. On physical exam was noted that the right lower extremity was shortened and Externally rotated. And has also received a dose of fentanyl with an appropriate consult and planning for surgery tomorrow we are asked to admit and manage. Patient seen and examined very poor historian he she lives with her son who is also her caregiver and is at the bedside. Reports to me that the patien t on standing up last night from a sitting position staggered backwards and fell. He reports that this has also happened in the last year and a physician's office where the patient also sustained a fall after standing from a sitting position with no loss of consciousness reported at either time. At the previous event she had a fracture of her right requiring surgery. Patient was recently in the hospital here for an outpatient colonoscopy for hematochezia with no complications noted with anesthesia. She reports her pain to be a 3/10 in intensity at this time this is shortly after receiving fentanyl IV. The patient was evaluated by orthopedic surgery, and the patient underwent a bipolar hip replacement of the right hip on 06/15/2021. Patient tolerated the procedure well. The patient was evaluated by physical therapy, who recommended subacute rehab. The patient will continue Eliquis 5 mg twice daily for total of 5 weeks in the setting of a hip fracture status post repair. The patient was found to have acute cystitis with hematuria that was treated with 3 days of Rocephin. The patient was also found to have an SIERRA on presentation that is since resolved after IV fluid resuscitation. Chest x-ray was performed revealing atelectasis versus pneumonia, the patient was empirically treated with antibiotics for community-acquired pneumonia. Patient is medically clear for discharge. Follow up with: CONCHITA ALEX MD [Primary Care Provider] - 3-5 Days Prescriptions: Apixaban [Eliquis] 2.5 mg PO Q12HR #60 tablet
[2021-06-21] MEDS: FUROSEMIDE 20 MG/2 ML INJ IV SCH (14:44)
[2021-06-21] MEDS: BENZTROPINE 1 MG TAB PO SCH (14:45)
[2021-06-21 18:03] VITALS: BP 111/55
== END 2021-06-21 17:30 | DRG 469 ==
LOC: ED 22:20 → 3A 06-14 08:46
PROVIDERS: ADMIT Internal Medicine; ATTEND Student in an Organized Health Care Education/Training Program
PROC: 0SRR0JA Replacement of Right Hip Joint, Femoral Surface with Synthetic Substitute, Uncemented, Open Approach (ICD-10-PCS; principal; 2021-06-15)
DX: S72.401A Unspecified fracture of lower end of right femur, initial encounter for closed fracture (principal); G93.41 Metabolic encephalopathy; N17.0 Acute kidney failure with tubular necrosis; J69.0 Pneumonitis due to inhalation of food and vomit; I13.0 Hypertensive heart and chronic kidney disease with heart failure and stage 1 through stage 4 chronic kidney disease, or unspecified chronic kidney disease; N30.00 Acute cystitis without hematuria; R65.10 Systemic inflammatory response syndrome (SIRS) of non-infectious origin without acute organ dysfunction; K21.9 Gastro-esophageal reflux disease without esophagitis; E87.6 Hypokalemia; I50.9 Heart failure, unspecified; J44.9 Chronic obstructive pulmonary disease, unspecified; F20.9 Schizophrenia, unspecified; R53.81 Other malaise; N18.9 Chronic kidney disease, unspecified; Z20.822 Contact with and (suspected) exposure to COVID-19; F17.200 Nicotine dependence, unspecified, uncomplicated; Z88.5 Allergy status to narcotic agent; Z79.82 Long term (current) use of aspirin; W18.39XA Other fall on same level, initial encounter; Y93.89 Activity, other specified; Y92.89 Other specified places as the place of occurrence of the external cause; Y99.8 Other external cause status
CPT/HCPCS: 36415; 71045; 72170; 73521; 76770; 80048; 80053; 81001; 82565; 82570; 82962; 83735; 84132; 84156; 84300; 85025; 85027; 85610; 85730; 87040; 87086; 88304; 88311; 93005; 94640; 94760; 99406; G0378; J1815; J3490; J7070; J7120; Q0162; C1776; J0690; J0696; J1100; J1644; J1885; J1940; J2270; J2370; J2405; J2704; J2710; J3010; J7030; U0003

== ENCOUNTER 2021-08-11 11:04 | Outpatient (CLI) | payer MEDICARE ==
--- NOTE | 2021-08-11 12:38 | XRay Report ---
PELVIS ONE VIEW INDICATION: M25.559 PAIN IN UNSPECIFIED HIP. COMPARISON: 06/15/2021 IMPRESSION: Osteopenia is suspected. No evidence for pelvic fracture, diastasis or bone lesion. Rig ht hip prosthesis appears grossly unchanged since 06/15/2021 exam. No new acute process is appreciated . Signer Name: Cristhian Lamas Jr, MD Signed: 08/11/2021 12:34 PM Workstation Name: [id number]
== END 2021-08-11 11:05 | disposition home or self-care (01) ==
LOC: XRAY 11:04
PROVIDERS: ATTEND Orthopaedic Surgery
DX: M25.559 Pain in unspecified hip (principal)
CPT/HCPCS: 72170

== ENCOUNTER 2021-12-13 12:36 | Outpatient (CLI) | payer MEDICARE ==
--- NOTE | 2021-12-13 15:12 | XRay Report ---
Pelvis and right hip 2 views INDICATION: Fall FINDINGS: Comparison is made with 08/11/2021. Right hip arthroplasty is satisfactory in position and a lignment. No acute fractures seen. Visualized sacrum appears normal. Signer Name: Gerardo Earl MD Signed: 12/13/2021 3:08 PM Workstation Name: [id number]
== END 2021-12-13 12:37 | disposition home or self-care (01) ==
LOC: XRAY 12:36
PROVIDERS: ATTEND Orthopaedic Surgery
DX: S72.001D Fracture of unspecified part of neck of right femur, subsequent encounter for closed fracture with routine healing (principal); Z96.641 Presence of right artificial hip joint; X58.XXXD Exposure to other specified factors, subsequent encounter